=== PATIENT | male | born 1940 | race Caucasian/White ===

== ENCOUNTER → 2017-02-06 | Outpatient (CLI) | payer OTHER, BC ==
[~2017-02-06] MED LIST: BISO5TAB15 PO; FURO20TA PO; LEVO50TA6 PO; LEVO75TA5 PO; LOVA40TA4 PO; PRAV80TA2 PO; PRED1SUS3; WARF5TAB90 PO
[2017-02-06 10:01] LABS: ALT/SGPT 23 U/L (12-78); BLOOD UREA NITROGEN 17 mg/dl (7-18); BUN/CREATININE RATIO 13.3 (10-20); CALCIUM 8.6 mg/dl (8.5-10.1); CARBON DIOXIDE 31 mmol/L (21-32); CHLORIDE 105 mmol/L (98-107); CHOLESTEROL 157 mg/dl (0-200); GLUCOSE 98 mg/dl (70-99); POTASSIUM 4.7 mmol/L (3.5-5.1); SODIUM 140 mmol/L (136-145); TRIGLYCERIDES 135 mg/dl (0-150); VERY LOW DENSITY LIPOPROT CALC 27 mg/dl
[2017-02-06 10:03] LABS: ALKALINE PHOSPHATASE 65 U/L (45-117); AST/SGOT 18 U/L (15-37); CHOLESTEROL/HDL RATIO 3.7; HDL CHOLESTEROL 42 mg/dl; LDL CHOLESTEROL CALCULATED 88 mg/dl
== END | disposition home or self-care (01) ==
LOC: C.LAB 07:03
PROVIDERS: ATTEND Internal Medicine
DX: I10 Essential (primary) hypertension (principal); E78.5 Hyperlipidemia, unspecified

== ENCOUNTER → 2017-09-05 | Outpatient (CLI) | payer OTHER, BC ==
[2017-09-05 09:35] LABS: BASO % 0.4 %; BASO ABS # 0.02 K/uL (0-0.2); COMPLETE YES; HEMATOCRIT 45.3 % (42-52); IG% 0.4 %; LYMPH % 19.8 %; LYMPH ABS # 1.12 K/uL (1.2-3.4); MEAN CELL VOLUME 89.5 fL (80-100); MEAN CORPUSCULAR HEMOGLOBIN 32.2 pg (25-34); MEAN PLATELET VOLUME 10.2 fL (7.4-10.4); MONO % 17.3 %; NEUT % 59.1 %; PLATELET COUNT 131 K/uL (130-400); RED BLOOD COUNT 5.06 M/uL (4.7-6.1); WHITE BLOOD COUNT 5.66 K/uL (4.8-10.8)
[2017-09-05 09:54] LABS: ALT/SGPT 23 U/L (12-78); BLOOD UREA NITROGEN 10 mg/dl (7-18); BUN/CREATININE RATIO 9.4 (10-20); CALCIUM 8.9 mg/dl (8.5-10.1); CARBON DIOXIDE 28 mmol/L (21-32); CHLORIDE 99 mmol/L (98-107); CHOLESTEROL 160 mg/dl (0-200); GLUCOSE 92 mg/dl (70-99); SODIUM 134 mmol/L (136-145); TRIGLYCERIDES 125 mg/dl (0-150); VERY LOW DENSITY LIPOPROT CALC 25 mg/dl
[2017-09-05 10:17] LABS: ALKALINE PHOSPHATASE 69 U/L (45-117); AST/SGOT 21 U/L (15-37); CHOLESTEROL/HDL RATIO 3.6; HDL CHOLESTEROL 45 mg/dl; LDL CHOLESTEROL CALCULATED 90 mg/dl
== END | disposition home or self-care (01) ==
LOC: C.LAB 06:59
PROVIDERS: ATTEND Internal Medicine
DX: E78.5 Hyperlipidemia, unspecified (principal); E89.0 Postprocedural hypothyroidism

== ENCOUNTER → 2017-10-17 | Outpatient (CLI) | payer OTHER, BC | END | disposition home or self-care (01) | LOC: C.LAB 06:57 | PROVIDERS: ATTEND Internal Medicine | DX: E89.0 Postprocedural hypothyroidism (principal) ==

== ENCOUNTER → 2018-02-01 | Outpatient (CLI) | payer OTHER, BC ==
--- NOTE | 2018-02-01 17:57 | DIAGNOSTIC IMAGING REPORT ---
ULTRASOUND LEFT LOWER EXTREMITY VENOUS CLINICAL HISTORY: Left leg pain. COMPARISON STUDY: No priors. TECHNIQUE: Real-time, grayscale, and color Doppler sonography of the deep veins of the left lower extremity was performed from the inguinal crease to the calf. Compression and augmentation were utilized. FINDINGS: There is no sonographic evidence of deep venous thrombosis identified in the left lower extremity. The common femoral, superficial femoral, and popliteal veins are patent and normally compressible. The greater saphenous vein and the profunda femoris vein at the junction with the common femoral vein are clear. The visualized calf veins are patent. IMPRESSION: There is no sonographic evidence of deep venous thrombosis identified in the left lower extremity. Electronically signed by: Dat Dumont M.D. 02/01/2018 5:55 PM Dictated Date/Time: 02/01/2018 5:55 PM
== END | disposition home or self-care (01) ==
LOC: C.ULTR 17:07
PROVIDERS: ATTEND Nurse Practitioner Adult Health
DX: M79.605 Pain in left leg (principal); E89.0 Postprocedural hypothyroidism

== ENCOUNTER → 2018-04-09 | Outpatient (CLI) | payer OTHER, BC | END | disposition home or self-care (01) | LOC: C.LAB 08:29 | PROVIDERS: ATTEND Internal Medicine | DX: E89.0 Postprocedural hypothyroidism (principal); N40.0 Benign prostatic hyperplasia without lower urinary tract symptoms ==

== ENCOUNTER 2022-11-04 11:39 | Inpatient (IN) ==
--- NOTE | 2022-11-04 12:23 | XRay Report ---
XR chest 1V portable CLINICAL HISTORY: AMS TECHNIQUE: Single frontal radiograph of the chest was obtained. Comparison: None available at the time of this dictation. FINDINGS: No lines and tubes are seen. Calcified aortic knob is seen. The lungs are clear. No evidence of pleur al effusion or pneumothorax. IMPRESSION: No acute chest disease. ACT 112: Negative or not required by law. Electronically signed by: Kyrie Flores M.D. 11/04/2022 12:22 PM
[2022-11-04 13:00] LABS: Hematocrit (blood only) 41.4 % (40.1-51.0); Hemoglobin 14.3 g/dl (14.0-18.0); Mean Corpuscular Hemoglobin 31.1 pg (25.0-34.0); Mean Corpuscular Hgb Conc 34.5 g/dL (32.0-36.0); Platelet Count 136 K/uL (130-400); RDW Coefficient of Variation 12.2 % (11.5-14.5); RDW Standard Deviation 40.1 fL (36.4-46.3); White Blood Count 4.92 K/ul (4.8-10.8)
[2022-11-04 13:06] LABS: Partial Thromboplastin Ratio 1.2; Partial Thromboplastin Time 34.1 Seconds (21.0-31.0); Prothrombin Time 20.1 Seconds (9.0-12.0)
[2022-11-04 13:20] LABS: Albumin Globulin Ratio 1.5 (0.9-2); Albumin Level 4.1 gm/dl (3.4-5.0); Calcium 8.4 mg/dl (8.5-10.1); Creatinine Clr Calc Pharmacy 55.1 ml/min; Est GFR (African American) 80.9 ml/min; Est GFR (Non-African American) 69.8 ml/min; Globulin 2.7 gm/dl (2.5-4.0); Potassium 3.8 mmol/L (3.5-5.1); Total Protein 6.8 gm/dl (6.0-8.3)
[2022-11-04 13:24] LABS: Basophils # (auto) 0.02 K/uL (0-0.2); Basophils % (auto) 0.4 %; Eosinophils # (auto) 0.14 K/uL (0-0.50); Eosinophils % (auto) 2.8 %; Immature Granulocytes # (auto) 0.02 K/uL (0.00-0.02); Immature Granulocytes % (auto) 0.4 %; Lymphocytes # (auto) 0.87 K/uL (1.2-3.4); Lymphocytes % (auto) 17.7 %; Monocytes % (auto) 12.2 %; Neutrophils # (auto) 3.27 K/uL (1.4-6.5); Neutrophils % (auto) 66.5 %
[2022-11-04 14:25] LABS: Appearance Urine Clear (Clear); Bacteria Urine Automated Negative (Negative); Bilirubin Urine Negative (Negative); Blood Urine Negative (Negative); Color Urine Yellow; Glucose Urine UA Negative (Negative); Ketones Urine Negative (Negative); Leukocyte Esterase Urine Negative (Negative); Nitrite Urine Negative (Negative); Protein Urine Trace (Negative); RBC Urine Automated 0-4 /hpf (0-4); Specific Gravity Urine 1.023 (1.000-1.030); Urobilinogen Urine Negative (Negative)
--- NOTE | 2022-11-04 14:43 | CT Scan Report ---
CT head/brain wo con CLINICAL HISTORY: confusion Technique: Contiguous axial CT images of the head were acquired from the base of the skull to the juan m mahendra without intravenous contrast administration. Images were viewed in brain, subdural and bone [facility] ws. Automated dose lowering techniques and/or adjustment according to patient size were utilized for this exam. Comparison: Comparison is made to CT head 02/17/2021 Findings: Areas of decreased attenuation are present in the periventricular and subcortical white matter bilate rally consistent with small vessel ischemic disease. Generalized cerebral atrophy with commensurate e nlargement of the ventricles, sulci, and cisterns is also present. There is no acute intracranial hem orrhage or evidence of acute territorial infarction. No shift of the midline structures, mass effect, or extra-axial abnormalities are shown. Atherosclerotic calcifications are present in the intracran ial segments of the internal carotid arteries. Imaged portions of the paranasal sinuses and mastoid air cells are clear. The orbits appear normal. There are no acute fractures of the calvaria or scalp swelling. Impression: No acute intracranial hemorrhage, no evidence of acute territorial infarction or other acute intracra nial disease process. ACT 112: Negative or not required by law. Electronically signed by: Kyrie Flores M.D. 11/04/2022 2:41 PM
[2022-11-04 14:54] LABS: Amphetamines+Metham, Urine Neg (Neg); Barbiturates, Urine Neg (Neg); Benzodiazepine, Urine Neg (Neg); Cocaine, Urine Neg (Neg); MDMA (Ecstacy), Urine Neg (Neg); Methadone, Urine Neg (Neg); Opiate, Urine Neg (Neg); Phencyclidine, Urine Neg (Neg)
--- NOTE | 2022-11-04 15:09 | Emergency Department Note ---
Impression & Plan Acute confusion ED Provider Note HISTORY OF PRESENT ILLNESS: Patient is an 82-year-old male presenting with altered mental status. Son provides history. Reports that in the last 24 hours the patient has not had a significant change in his mental status. Reports that the patient thought there were people in his house last night but are not normally there. The patient lives alone since his ex- recently got placed in a care facility. Son reports that the patient called the railroad design consultant this morning after hallucinating seeing a random person lying on his couch and there are dog walking in the living room. No reported fevers. No reported chest pain, shortness of breath, abdominal pain, nausea or vomiting. No dysuria or hematuria. No reported changes in medications. No recent falls or head injuries. ROS: Constitutional: No fever, chills, or weakness Skin: No rash or diaphoresis HENT: No headaches or congestion Eyes: No vision changes Cardio: No chest pain, palpitations or leg swelling Respiratory: No cough, wheezing or shortness of breath GI: No nausea, vomiting, diarrhea, constipation : No dysuria, polyuria MSK: No joint or back pain Neuro: No loss of sensation, focal deficits, numbness, tingling +confusion Psychiatric: No mood changes PHYSICAL EXAM: Constitutional: Patient appears in no acute distress. HENT: Head: Normocephalic and atraumatic. Eyes: EOMI, PERRL Mouth/Throat: Mucous membranes moist. Neck: Trachea midline. Neck supple. Cardiovascular: RRR, No murmurs, rubs or gallops. Intact distal pulses. Pulmonary/Chest: No respiratory distress. Breath sounds clear and equal bilaterally. No wheezes or rales. Abdominal: BS +. Abdomen soft, no tenderness, rebound or guarding. Back: No midline spinal tenderness, no paraspinal tenderness, no CVA te nderness. Musculoskeletal: No edema, tenderness or deformity noted. Skin: Warm and dry. No rash, erythema, pallor or cyanosis Psychiatric: Appropriate mood and affect for situation. Neurological: Alert and keenly responsive, but with intermittent episodes of confusion to time. CN II-XII grossly intact, moving all extremities equally and fully. MDM: - Vitals signs stable. - EKG negative for acute ischemic changes. - Laboratory workup showed normal WBC; stable electrolytes; normal troponin; normal procal; elevated TSH (7.122) - UA negative for infection. - CT head wo contrast negative for acute intracranial pathology. - CXR negative for acute cardiopulmonary pathology. - Discussed results with patient and family at bedside. Family expresses concern about patient going home, as he lives alone. - Hospitalist consulted for admission. - Patient admitted to hospitalist service for further evaluation and management. ASSESSMENT AND PLAN: Diagnosis: confusion Plan: admit Past Med/Surg History Medical History (Updated 11/04/22 @ 16:07 by Allyssa Phan MD) Atrial fibrillation on warfarin---follows with Dr. Jackson BPH (benign prostatic hyperplasia) History of radioactive iodine thyroid ablation Hyperlipidemia Hypertension Hypothyroidism On anticoagulant therapy warfarin daily Skin cancer multiple--all removed in office Surgical History H/O surgical amputation of finger right index finger History of appendectomy History of bilateral cataract extraction History of colonoscopy History of colonoscopy with polypectomy History of nasal surgery intranasal ligation for recurrent epistaxis April 2015 History of prostate biopsy benign History of tooth extraction Status post debridement of bone spur 1990s Family History Father Cardiac disorder Colorectal cancer Hypertension Mother Colorectal cancer Grandfather (Paternal) No problems noted. Grandfather (Maternal) Myocardial infarction Other No family history of adverse response to anesthesia Denies family history of Ovarian cancer Prostate cancer Breast cancer Social History Smoking Status: Never smoker Second Hand Exposure: No; Hx Alcohol Use: Yes Alcohol type: beer Alcohol Intake Frequency Comment: 2-3 beers per day most every day Hx Substance Use: No Preferred Language: Yemeni Communication Ability: Effective Visual Impairment: No Limitations Hearing Ability: Normal Development Administrator Required: No Beliefs That Will Affect Care: None marital status: Current Living Situation: Spouse current occupational status: 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 Feels Safe at Home: Yes Childhood Exposure to Second-Hand Smoke: No caffeine: Yes Dental Care, Regularly: Yes Physical Activity Frequency: 1-2 Times per Week Seatbelt Use: always Sunscreen Use: No Assistive Devices: Denture - Upper, Denture - Lower and Glasses Allergies Allergies Allergy/AdvReac Type Severity Reaction Status Date / Time alfuzosin AdvReac Mild dizziness Verified 11/04/22 14:23 Home Meds Home Medications Medication Instructions Recorded Confirmed cholecalciferol (vitamin D3) 50 2,000 units PO QAM 07/16/20 11/04/22 mcg (2,000 unit) tablet lovastatin 40 mg tablet 40 mg PO HS 11/04/22 11/04/22 warfarin 2.5 mg tablet 2.5 mg PO MOTUWETHFR 11/04/22 11/04/22 Previous Rx's Medication Instructions Recorded bisoprolol 5 1 tab PO QAM #90 tabs 12/06/21 mg-hydrochlorothiazide 6.25 mg tablet levothyroxine 100 mcg tablet 100 mcg PO DAILY #90 tabs 09/01/22 mecobalamin (vitamin B12) 1,000 1,000 mcg PO DAILY #90 tabs 09/19/22 mcg chewable tablet Results & Data (ED) Vital Signs Vital Signs - 24 hr 11/04/22 11:41 11/04/22 12:51 11/04/22 12:51 Temperature 35.8 C L Temperature Source Temporal Artery Scan Pulse Rate 64 Pulse Rate [Apical] 65 Pulse Rate from SpO2 Sensor Respiratory Rate 18 16 Respiratory Effort / Characteristics Non-Labored Respiratory Depth Normal Respiratory Pattern Regular Blood Pressure 147/88 H Blood Pressure [Right Arm] Blood Pressure Mean 107 Blood Pressure Mean [Right Arm] Pulse Oximetry 99 97 Oxygen Delivery Method Room Air Room Air Room Air Sepsis Recent Fever Within 48 Hours No Sepsis New/Unexplained Change in Mental Status N/A Sepsis Action Taken by Nursing No Action Required 11/04/22 13:00 11/04/22 13:05 11/04/22 14:03 Temperature Temperature Source Pulse Rate Pulse Rate [Apical] 63 68 Pulse Rate from SpO2 Sensor Respiratory Rate 14 Respiratory Effort / Characteristics Respiratory Depth Respiratory Pattern Blood Pressure Blood Pressure [Right Arm] 172/123 H 191/123 H Blood Pressure Mean Blood Pressure Mean [Right Arm] 139 145 Pulse Oximetry 98 98 Oxygen Delivery Method Room Air Room Air Room Air Sepsis Recent Fever Within 48 Hours Sepsis New/Unexplained Change in Mental Status Sepsis Action Taken by Nursing 11/04/22 14:30 11/04/22 14:43 11/04/22 14:43 Temperature Temperature Source Pulse Rate 68 60 Pulse Rate [Apical] Pulse Rate from SpO2 Sensor 76 63 Respiratory Rate 23 14 Respiratory Effort / Characteristics Respiratory Depth Respiratory Pattern Blood Pressure 184/99 H Blood Pressure [Right Arm] Blood Pressure Mean 127 Blood Pressure Mean [Right Arm] Pulse Oximetry 99 99 Oxygen Delivery Method Room Air Room Air Sepsis Recent Fever Within 48 Hours Sepsis New/Unexplained Change in Mental Status Sepsis Action Taken by Nursing Laboratory Data Result diagrams: 11/04/22 12:11/04/22 12: Lab Results 11/04/22 11/04/22 11/04/22 Range/Units : 12: 12: WBC 4.92 (4.8-10.8) K/ul RBC 4.60 L (4.63-6.08) M/uL Hgb 14.3 (14.0-18.0) g/dl Hct 41.4 (40.1-51.0) % MCV 90.0 (80.0-100.0) fL MCH 31.1 (25.0-34.0) pg MCHC 34.5 (32.0-36.0) g/dL RDW Std Deviation 40.1 (36.4-46.3) fL RDW Coeff of Dion[place] 12.2 (11.5-14.5) % Plt Count 136 (130-400) K/uL MPV 11.0 (9.4-12.4) fL Immature Gran % (Auto) 0.4 % Neut % (Auto) 66.5 % Lymph % (Auto) 17.7 % [place] % (Auto) 12.2 % Eos % (Auto) 2.8 % Baso % (Auto) 0.4 % Neut # (Auto) 3.27 (1.4-6.5) K/uL Lymph # (Auto) 0.87 L (1.2-3.4) K/uL [place] # (Auto) 0.60 (0.24-0.82) K/uL Eos # (Auto) 0.14 (0-0.50) K/uL Baso # (Auto) 0.02 (0-0.2) K/uL Immature Gran # (Auto) 0.02 (0.00-0.02) K/uL PT 20.1 H (9.0-12.0) Seconds INR 2.0 H (0.9-1.1) APTT 34.1 H (21.0-31.0) Seconds PTT Ratio 1.2 Sodium 140 (136-145) mmol/L Potassium 3.8 (3.5-5.1) mmol/L Chloride 106 (98-107) mmol/L Carbon Dioxide 28 (21-32) mmol/L Anion Gap 6 (3-11) BUN 23 (6-23) mg/dl Creatinine 1.00 (0.6-1.4) mg/dl Est Cr Clr Drug Dosing 55.1 ml/min Est GFR ( Amer) 80.9 ml/min Est GFR (Non-Af Amer) 69.8 ml/min BUN/Creatinine Ratio 23.0 H (10-20) Glucose 79 (70-99(Fasting)) mg/dl Calcium 8.4 L (8.5-10.1) mg/dl Magnesium 2.0 (1.7-2.4) mg/dl Total Bilirubin 1.0 (0.2-1.0) mg/dl AST 13 (13-39) U/L ALT 8 (7-52) U/L Alkaline Phosphatase 54 (34-104) U/L Troponin I High Sens (0-20) pg/ml Total Protein 6.8 (6.0-8.3) gm/dl Albumin 4.1 (3.4-5.0) gm/dl Globulin 2.7 (2.5-4.0) gm/dl Albumin/Globulin Ratio 1.5 (0.9-2) Procalcitonin (0-0.5) ng/ml TSH (0.300-4.500) uIu/ml Urine Color Urine Appearance (Clear) Urine pH (4.5-7.5) Ur Specific [place] (1.000-1.030) Urine Protein (Negative) Urine Glucose (UA) (Negative) Urine Ketones (Negative) Urine Blood (Negative) Urine Nitrite (Negative) Urine Bilirubin (Negative) Urine Urobilinogen (Negative) Ur Leukocyte Esterase (Negative) Urine WBC (Auto) (0-5) /hpf Urine RBC (Auto) (0-4) /hpf U Hyaline Cast (Auto) (0-5) /lpf U Epithel Cells (Auto) (0-5) /lpf Urine Bacteria (Auto) (Negative) Urine Opiates Screen (Neg) Ur Methadone, Qual (Neg) Urine Barbiturates (Neg) Ur Phencyclidine (PCP) (Neg) U Amphetamin/Meth Scrn (Neg) MDMA (Ecstasy) Screen (Neg) U Benzodiazepines Scrn (Neg) Ur Cocaine Metabolite (Neg) U Marijuana (THC) Screen (Neg) Ethyl Alcohol mg/dL (<10.0) mg/dl 11/04/22 11/04/22 11/04/22 Range/Units 12:23 12:23 12:23 WBC (4.8-10.8) K/ul RBC (4.63-6.08) M/uL Hgb (14.0-18.0) g/dl Hct (40.1-51.0) % MCV (80.0-100.0) fL MCH (25.0-34.0) pg MCHC (32.0-36.0) g/dL RDW Std Deviation (36.4-46.3) fL RDW Coeff of Dionne (11.5-14.5) % Plt Count (130-400) K/uL MPV (9.4-12.4) fL Immature Gran % (Auto) % Neut % (Auto) % Lymph % (Auto) % [place] % (Auto) % Eos % (Auto) % Baso % (Auto) % Neut # (Auto) (1.4-6.5) K/uL Lymph # (Auto) (1.2-3.4) K/uL [place] # (Auto) (0.24-0.82) K/uL Eos # (Auto) (0-0.50) K/uL Baso # (Auto) (0-0.2) K/uL Immature Gran # (Auto) (0.00-0.02) K/uL PT (9.0-12.0) Seconds INR (0.9-1.1) APTT (21.0-31.0) Seconds PTT Ratio Sodium (136-145) mmol/L Potassium (3.5-5.1) mmol/L Chloride (98-107) mmol/L Carbon Dioxide (21-32) mmol/L Anion Gap (3-11) BUN (6-23) mg/dl Creatinine (0.6-1.4) mg/dl Est Cr Clr Drug Dosing ml/min Est GFR ( Amer) ml/min Est GFR (Non-Af Amer) ml/min BUN/Creatinine Ratio (10-20) Glucose (70-99(Fasting)) mg/dl Calcium (8.5-10.1) mg/dl Magnesium (1.7-2.4) mg/dl Total Bilirubin (0.2-1.0) mg/dl AST (13-39) U/L ALT (7-52) U/L Alkaline Phosphatase (34-104) U/L Troponin I High Sens 10.6 (0-20) pg/ml Total Protein (6.0-8.3) gm/dl Albumin (3.4-5.0) gm/dl Globulin (2.5-4.0) gm/dl Albumin/Globulin Ratio (0.9-2) Procalcitonin (0-0.5) ng/ml TSH 7.122 H (0.300-4.500) uIu/ml Urine Color Urine Appearance (Clear) Urine pH (4.5-7.5) Ur Specific [place] (1.000-1.030) Urine Protein (Negative) Urine Glucose (UA) (Negative) Urine Ketones (Negative) Urine Blood (Negative) Urine Nitrite (Negative) Urine Bilirubin (Negative) Urine Urobilinogen (Negative) Ur Leukocyte Esterase (Negative) Urine WBC (Auto) (0-5) /hpf Urine RBC (Auto) (0-4) /hpf U Hyaline Cast (Auto) (0-5) /lpf U Epithel Cells (Auto) (0-5) /lpf Urine Bacteria (Auto) (Negative) Urine Opiates Screen (Neg) Ur Methadone, Qual (Neg) Urine Barbiturates (Neg) Ur Phencyclidine (PCP) (Neg) U Amphetamin/Meth Scrn (Neg) MDMA (Ecstasy) Screen (Neg) U Benzodiazepines Scrn (Neg) Ur Cocaine Metabolite (Neg) U Marijuana (THC) Screen (Neg) Ethyl Alcohol mg/dL < 10.0 (<10.0) mg/dl 11/04/22 11/04/22 11/04/22 Range/Units 12:23 13:55 13:55 WBC (4.8-10.8) K/ul RBC (4.63-6.08) M/uL Hgb (14.0-18.0) g/dl Hct (40.1-51.0) % MCV (80.0-100.0) fL MCH (25.0-34.0) pg MCHC (32.0-36.0) g/dL RDW Std Deviation (36.4-46.3) fL RDW Coeff of Dionne (11.5-14.5) % Plt Count (130-400) K/uL MPV (9.4-12.4) fL Immature Gran % (Auto) % Neut % (Auto) % Lymph % (Auto) % [place] % (Auto) % Eos % (Auto) % Baso % (Auto) % Neut # (Auto) (1.4-6.5) K/uL Lymph # (Auto) (1.2-3.4) K/uL [place] # (Auto) (0.24-0.82) K/uL Eos # (Auto) (0-0.50) K/uL Baso # (Auto) (0-0.2) K/uL Immature Gran # (Auto) (0.00-0.02) K/uL PT (9.0-12.0) Seconds INR (0.9-1.1) APTT (21.0-31.0) Seconds PTT Ratio Sodium (136-145) mmol/L Potassium (3.5-5.1) mmol/L Chloride (98-107) mmol/L Carbon Dioxide (21-32) mmol/L Anion Gap (3-11) BUN (6-23) mg/dl Creatinine (0.6-1.4) mg/dl Est Cr Clr Drug Dosing ml/min Est GFR ( Amer) ml/min Est GFR (Non-Af Amer) ml/min BUN/Creatinine Ratio (10-20) Glucose (70-99(Fasting)) mg/dl Calcium (8.5-10.1) mg/dl Magnesium (1.7-2.4) mg/dl Total Bilirubin (0.2-1.0) mg/dl AST (13-39) U/L ALT (7-52) U/L Alkaline Phosphatase (34-104) U/L Troponin I High Sens (0-20) pg/ml Total Protein (6.0-8.3) gm/dl Albumin (3.4-5.0) gm/dl Globulin (2.5-4.0) gm/dl Albumin/Globulin Ratio (0.9-2) Procalcitonin < 0.05 (0-0.5) ng/ml TSH (0.300-4.500) uIu/ml Urine Color Yellow Urine Appearance Clear (Clear) Urine pH 7.0 (4.5-7.5) Ur Specific [place] 1.023 (1.000-1.030) Urine Protein Trace H (Negative) Urine Glucose (UA) Negative (Negative) Urine Ketones Negative (Negative) Urine Blood Negative (Negative) Urine Nitrite Negative (Negative) Urine Bilirubin Negative (Negative) Urine Urobilinogen Negative (Negative) Ur Leukocyte Esterase Negative (Negative) Urine WBC (Auto) 1-5 (0-5) /hpf Urine RBC (Auto) 0-4 (0-4) /hpf U Hyaline Cast (Auto) 1-5 (0-5) /lpf U Epithel Cells (Auto) 5-10 H (0-5) /lpf Urine Bacteria (Auto) Negative (Negative) Urine Opiates Screen Neg (Neg) Ur Methadone, Qual Neg (Neg) Urine Barbiturates Neg (Neg) Ur Phencyclidine (PCP) Neg (Neg) U Amphetamin/Meth Scrn Neg (Neg) MDMA (Ecstasy) Screen Neg (Neg) U Benzodiazepines Scrn Neg (Neg) Ur Cocaine Metabolite Neg (Neg) U Marijuana (THC) Screen Neg (Neg) Ethyl Alcohol mg/dL (<10.0) mg/dl Imaging Data Radiologist's Impression: Chest X-Ray 11/04/22 11:47 XR chest 1V portable CLINICAL HISTORY: AMS TECHNIQUE: Single frontal radiograph of the chest was obtained. Comparison: None available at the time of this dictation. FINDINGS: No lines and tubes are seen. Calcified aortic knob is seen. The lungs are clear. No evidence of pleural effusion or pneumothorax. IMPRESSION: No acute chest disease. ACT 112: Negative or not required by law. Electronically signed by: Kyrie Flores M.D. 11/04/2022 12:[address] 11/04/22 13:08 CT head/brain wo con CLINICAL HISTORY: confusion Technique: Contiguous axial CT images of the head were acquired from the base of the skull to the vertex without intravenous contrast administration. Images were viewed in brain, subdural and bone windows. Automated dose lowering techniques and/or adjustment according to patient size were utilized for this exam. Comparison: Comparison is made to CT head 02/17/2021 Findings: Areas of decreased attenuation are present in the periventricular and subcortical white matter bilaterally consistent with small vessel ischemic disease. Generalized cerebral atrophy with commensurate enlargement of the ventricles, sulci, and cisterns is also present. There is no acute intracranial hemorrhage or evidence of acute territorial infarction. No shift of the midline structures, mass effect, or extra-axial abnormalities are shown. Atherosclerotic calcifications are present in the intracranial segments of the internal carotid arteries. Imaged portions of the paranasal sinuses and mastoid air cells are clear. The orbits appear normal. There are no acute fractures of the calvaria or scalp swelling. Impression: No acute intracranial hemorrhage, no evidence of acute territorial infarction or other acute intracranial disease process. ACT 112: Negative or not required by law. Electronically signed by: Kyrie Flores M.D. 11/04/2022 2:41 PM Discharge Plan Visit Data Chief Complaint: Altered Mental Status Stated Complaint: HALLUCINATING, MIND IS OFF ED Provider: Allyssa Phan Discharge Problem: Acute confusion Patient Disposition: Admitted As Inpatient Forms Stand Alone Forms: [facility] Pres[facility] Prescriptions: No Action bisoprolol-hydrochlorothiazide 5-6.25 mg tablet 1 tab PO QAM Qty: 90 3RF levothyroxine 100 mcg tablet 100 mcg PO DAILY Qty: 90 3RF mecobalamin (vitamin B12) 1,000 mcg tablet,chewable 1,000 mcg PO DAILY Qty: 90 1RF cholecalciferol (vitamin D3) 2,000 unit tablet 2,000 units PO QAM lovastatin 40 mg tablet 40 mg PO HS Rx Instructions: TAKE 1 TABLET BY MOUTH EVERY EVENING warfarin 2.5 mg tablet 2.5 mg PO MOTUWETHFR Protocol: Dose Management Condition: Monday Dose/Route: 2.5 mg Instruction: 1 x 2.5 mg tablet Condition: Monday Dose/Route: 5 mg Instruction: 2 x 2.5 mg tablets Condition: Monday Dose/Route: 2.5 mg Instruction: 1 x 2.5 mg tablet Condition: Monday Dose/Route: 2.5 mg Instruction: 1 x 2.5 mg tablet Condition: Dose/Route: 2.5 mg Instruction: 1 x 2.5 mg tablet Condition: Monday Dose/Route: 5 mg Instruction: 2 x 2.5 mg tablets Condition: Monday Dose/Route: 2.5 mg Instruction: 1 x 2.5 mg tablet Protocol Text: Adjustment Start Date: Monday07/20/22 INR Value: 2.5 INR Date: 07/20/22 Recheck Date: 08/10/22 Rx Instructions: Take 1 tablet daily or an additional one as needed to achieve INR of 2-3 Referrals Referrals: Michael Pederson MD [Primary Care Provider] -
--- NOTE | 2022-11-04 16:54 | Electrocardiogram Report ---
Test Reason : Blood Pressure : / mmHG Vent. Rate : 062 BPM Atrial Rate : 178 BPM P-R Int : 000 ms QRS Dur : 080 ms QT Int : 408 ms P-R-T Axes : 000 054 044 degrees QTc Int : 414 ms Atrial fibrillation Abnormal ECG When compared with ECG of 02-MAR-2021 12:46, Nonspecific T wave abnormality has replaced inverted T waves in Inferior leads Confirmed by Baljeet Baumann ([id number]) on 11/04/2022 4:54:31 PM Referred By: REFERRED SELF Confirmed By:Baljeet Baumann
[2022-11-04] MEDS ORDERED: FOLIC ACID 1 MG in SYRINGE 9.8 ML IV STA (18:36)
[2022-11-04] MEDS ORDERED: LACTATED RINGER'S 1,000 ML IV SCH (18:36)
[2022-11-04] MEDS ORDERED: ONDANSETRON INJ 2 MG/ML 2 ML VIAL IV PRN (18:36)
--- NOTE | 2022-11-04 19:18 | History & Physical Report ---
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 We will give a liter of IV fluids, supportive care, follow closely. 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 has a potential for impact. Discussed with patient and family at the very least replacing B vitamins aggressively and alcohol cessation should stop the worsening, at best, we could potentially see some degree of improvement. They were clear and realistic that his current mentation may be "as good as it gets" (2) Alcohol abuse: Plan: Certainly appears to be a "root cause problem"encouraged cessation. For now a WSS and follow for any withdrawal. He is currently about 24 hours after his last drink. Fortunately at this point time he does not show any serious withdrawalsee below he had a little bit of an uptick in what appears to be his essential tremor as we were discussing what alcohol withdrawal would look like, but otherwise right now is not tremulous, tachycardic, diaphoretic, or anxious. (3) Vitamin B 12 deficiency: Plan: Profoundly low, and given that it does seem to have a potential role in his confusion/overall deteriorationreplacing IM to ensure reliable delivery. 1000 mcg IM daily for a week, then weekly for a month, then monthly indefinitely. Given his chronic alcohol abuse and confusionwe will utilize thiamine at [place]ke type [id number] mg 3 times daily for probably at least 2 days, then 250 daily for quite a while thereafter. As it relates to disposition, would probably want to at least have 2 days of the thiamine at the extremely high dosing before thinking about getting out of the hospital Folate 1 mg IV daily (4) Hypothyroidism: Plan: Very mildly elevated TSH, I do wonder how often he is taking his home Synthroid. Given that his INR is therapeutic, he is probably taking his meds at least some, given that his TSH was low in July and mildly high nowundoubtedly is taking his med somewhat erratically. Home dose, follow-up TSH in about 4 weeks. To be clear, a TSH of 7.12 is almost certainly not contributing to his mentation (5) Dyslipidemia: Plan: Continue home meds for now, might be able to DC questioning utility (6) HTN (hypertension): Plan: Follow blood pressure, continue home meds (7) Atrial fibrillation: Plan: Continue beta-blockerrate controlled. Continue Coumadin, anticoagulated (8) Vitamin D deficiency: Plan: Continue replacement, check a level along with thiamine, folate, etc. (9) Essential tremor: Plan: Interestingly had very little tremor at rest until we started to talk about following for alcohol withdrawal, at which point he started to have a fairly characteristic essential tremor, which caused him to laugh at the situation (10) DVT prophylaxis: Plan: Anticoagulated with Coumadin (11) Discharge planning issues: Plan: Admit for high-dose thiamine, PT/OT, supportive care, and IV fluids. Family was already looking at increasing care at homethey actually have caregivers set to start 3 hours a day, and at the same time were going through the process with a geriatric civil litigation attorney as far as what type of placement/long-term care would be id eal. We discussed the possibility that, while hopefully he can go home with extra support, he might need a facilitybut also discussed that currently beds are so tight that it might be placement with what is available rather than what was a good fit for himto that end, should that situation arise, they would consider doing what they can do supportive at home while working on placement that would be best for him. At this point disposition contingent on his progress as well as PT/OT assessmeents and ongoing family input. Admission and Anticipated Discharge Date Admission Date: November 04, 2022 History of Present Illness Primary Care Provider: Confusion and hallucinationsMichael Pederson MD Very pleasant 82-year-old male accompanied by his family. They note that over the last several months he has had some progressive worsening confusionhis ex- (with whom he used to still live) moved into [facility] about a month ago, and he has had several phone calls to his son asking where his ex- is. He has also had a few falls over the last few months for no clear reason, and some degree of confusion/may be getting lost a little bit, etc. He has been following actively with his PCP. He relates that he believes he takes his medications reliably. Family does note that he is probably lost about 10 pounds over the last 3 months, and they believe he is still eating and drinking reasonably but definitely not well enough consistently. He still drinks dailyhard to discern exactly how much, but sounds like probably somewhere between 2 to 4 12 ounce, 5% beers. He ended up in the ER today because over the last 24 hours the increase in hallucinations was quite significanthe is seeing things fleetinglysometimes that they sort of look like animalshe notes those are there for just a few seconds and seems to be able to convince himself they are not real, and yet at the same time he felt that he saw someone on his couch doing drugs, called the police, etc. He denies any acute physical complaints, no focal symptoms. He does note that he has had very few times that he is quit drinking in the past, he was not able to quantify when it was as far as how many years ago, but at some point he tried to quit drinking for lunch, made it for days, and had some significant shakes during that time period. Allergies Allergy/AdvReac Type Severity Reaction Status Date / Time alfuzosin AdvReac Mild dizziness Verified 11/04/22 14:23 Home Medications Medication Instructions Recorded Confirmed Type cholecalciferol (vitamin D3) 50 2,000 units PO QAM 07/16/20 11/04/22 History mcg (2,000 unit) tablet bisoprolol 5 1 tab PO QAM #90 tabs 12/06/21 11/04/22 Rx mg-hydrochlorothiazide 6.25 mg tablet levothyroxine 100 mcg tablet 100 mcg PO DAILY #90 tabs 09/01/22 11/04/22 Rx mecobalamin (vitamin B12) 1,000 1,000 mcg PO DAILY #90 tabs 09/19/22 11/04/22 Rx mcg chewable tablet lovastatin 40 mg tablet 40 mg PO HS 11/04/22 11/04/22 History warfarin 2.5 mg tablet 2.5 mg PO MOTUWETHFR 11/04/22 11/04/22 History Past Med/Surg History Medical History (Updated 11/04/22 @ 19:11 by Khoa Mcnamara DO) Atrial fibrillation on warfarin---follows with Dr. Jackson BPH (benign prostatic hyperplasia) History of radioactive iodine thyroid ablation Hyperlipidemia Hypertension Hypothyroidism On anticoagulant therapy warfarin daily Skin cancer multiple--all removed in office Surgical History H/O surgical amputation of finger right index finger History of appendectomy History of bilateral cataract extraction History of colonoscopy History of colonoscopy with polypectomy History of nasal surgery intranasal ligation for recurrent epistaxis April 2015 History of prostate biopsy benign History of tooth extraction Status post debridement of bone spur Family History Father , age 85 of colon cancer Cardiac disorder Colorectal cancer Hypertension Mother , age 69 of colon cancer Colorectal cancer Grandfather (Paternal) No problems noted. Grandfather (Maternal) Myocardial infarction Other No family history of adverse response to anesthesia Denies family history of Ovarian cancer Prostate cancer Breast cancer Social History Smoking Status: Never smoker Second Hand Exposure: No; Hx Alcohol Use: Yes Alcohol type: beer Alcohol Intake Frequency Comment: 2-3 beers per day most every day Hx Substance Use: No Preferred Language: Icelandic Communication Ability: Effective Visual Impairment: No Limitations Hearing Ability: Normal Marketing Analytics Specialist Required: No Beliefs That Will Affect Care: None marital status: Current Living Situation: Spouse current occupational status: 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 No acute distress. HEENT normocephalic atraumatic mucous membranes may be slightly dry. Cardio is irregularly irregular, regular rate bordering on bradycardia, no rubs murmurs or gallops. Lungs are overall clear to auscultation bilaterally, he had faint crackles base right that seem to clear with repeated deep breaths, no rhonchi no wheezes no accessory muscle use good effort. Abdomen is soft nondistended nontender no masses organomegaly, vague nontender right upper quadrant fullness. Extremities show no cyanosis clubbing or edema, somewhat poor skin turgor, no palpable cords, he does have a little bit of right calf tenderness but is reproducible in the belly of the medial portion of the gastroc muscle. Neuro shows cranial nerves II through XII be grossly intact gross motor and sensory intact without focal deficits. Mental status seems to show fair to poor recent recall although it is tough to quantify because some of it is that he gets fixated on what he was hallucinating about. Good remote recall, normal mood and affect, hard to gauge judgment and insight. Musculoskeletal yields no gross abnormalities Results & Data Results & Data ([facility]) Vital Signs (Past 12 Hours) Vital Signs Temp Pulse Pulse Pulse Resp BP BP 11/04/22 18:25 97.9 F 60 16 174/103 H 11/04/22 18:20 97.9 F 60 16 174/103 H 11/04/22 18:04 62 22 196/107 H 11/04/22 17:30 62 22 196/107 H 11/04/22 17:01 62 19 188/124 H 11/04/22 16:40 60 17 212/122 H 11/04/22 16:38 75 10 L 212/122 H 11/04/22 15:31 68 16 181/133 H 11/04/22 14:43 60 14 11/04/22 14:43 184/99 H 11/04/22 14:30 68 23 11/04/22 14:03 68 14 11/04/22 13:05 11/04/22 13:00 63 11/04/22 12:51 65 16 11/04/22 12:51 11/04/22 11:41 96.4 F L 64 18 147/88 H BP Pulse Ox O2 Del Method 11/04/22 18:25 98 Room Air 11/04/22 18:20 98 Room Air 11/04/22 18:04 97 Room Air 11/04/22 17:30 97 11/04/22 17:01 96 11/04/22 16:40 98 11/04/22 16:38 96 11/04/22 15:31 98 11/04/22 14:43 99 Room Air 11/04/22 14:43 11/04/22 14:30 99 Room Air 11/04/22 14:03 191/123 H 98 Room Air 11/04/22 13:05 Room Air 11/04/22 13:00 172/123 H 98 Room Air 11/04/22 12:51 97 Room Air 11/04/22 12:51 Room Air 11/04/22 11:41 99 Room Air Code Status & VTE Plan VTE Prophylaxis Plan VTE Prophylaxis will be ordered: Yes PG Care Time/CCT Total # of Minutes Spent Total Time Spent with Patient: Total time spent is greater than 50% in coordination of care (as documented) at patient's floor/unit and/or counseling patient: Coding Level of Care Code 70037 Initial Inpt Care Lvl 3 Diagnoses Altered mental status R41.82 Alcohol abuse F10.10 Vitamin B 12 deficiency E53.8 Hypothyroidism E03.9 Hypothyroidism type: acquired Dyslipidemia E78.5 HTN (hypertension) I10 Hypertension type: essential hypertension Atrial fibrillation I48.21 Atrial fibrillation type: permanent Vitamin D deficiency E55.9 Essential tremor G25.0 DVT prophylaxis Z29.9 Discharge planning issues Z02.9 (1) Hypothyroidism Hypothyroidism type: acquired Qualified Code(s): E03.9 - Hypothyroidism, unspecified (2) HTN (hypertension) Hypertension type: essential hypertension Qualified Code(s): I10 - Essential (primary) hypertension (3) Atrial fibrillation Atrial fibrillation type: permanent Qualified Code(s): I48.21 - Permanent atrial fibrillation
[2022-11-04] MEDS ORDERED: METOPROLOL TARTRATE 25 MG TAB PO ONE (19:57)
[2022-11-04] MEDS: WARFARIN SOD 2.5 MG TAB PO SCH (20:27)
[2022-11-04] MEDS: THIAMINE HCL 500 MG in SODIUM CHLORIDE 0.9% 50 ML IV SCH (20:28)
[2022-11-04] MEDS: LOVASTATIN 20 MG TAB PO SCH (20:28)
[2022-11-04] MEDS: CYANOCOBALAMIN 1000 MCG/ML VIAL IM SCH (20:31)
[2022-11-04 21:28] LABS: Vitamin D, 25 Hydrox 32.9 ng/ml (30-100)
[2022-11-05] MEDS: THIAMINE HCL 500 MG in SODIUM CHLORIDE 0.9% 50 ML IV SCH ×3 (04:46→17:48)
[2022-11-05] MEDS: LEVOTHYROXINE SODIUM 100 MCG TABLET PO SCH (04:54)
[2022-11-05 07:22] LABS: INR 1.7 (0.9-1.1)
[2022-11-05] MEDS: CYANOCOBALAMIN 1000 MCG/ML VIAL IM SCH (08:48)
[2022-11-05] MEDS: FOLIC ACID 1 MG in SYRINGE 9.8 ML IV SCH (08:48)
[2022-11-05] MEDS: CHOLECALCIFEROL 1,000 UNITS 25 MCG TAB PO SCH (08:48)
[2022-11-05] MEDS: METOPROLOL TARTRATE 25 MG TAB PO SCH ×2 (08:49→22:22)
[2022-11-05] MEDS: WARFARIN SOD 2.5 MG TAB PO SCH (08:49)
[2022-11-05] MEDS ORDERED: BISOPROLOL HYDROCHLOROTHIAZIDE PO SCH (09:00)
[2022-11-05] MEDS ORDERED: hydroCHLOROthiazide 25 MG TAB PO SCH (09:00)
--- NOTE | 2022-11-05 16:51 | Hospitalist Progress Note ---
Date of Service November 05, 2022 Assessment & Plan (1) Altered mental status: Plan: This has been an ongoing problem Waxing and waning dementia. Very low B12 found on [id number] shots started several months ago. Patient misses p.o. B12. P.o. was not sufficient we will give a liter of IV fluids, supportive care, follow closely. Discussed with family the hard part will be that given his age and baseline impaired mentation, as well as the small but real possibility of alcohol withdrawal, it might be hard to gauge his acute mental status for quite a while given the high propensity for delirium to occur in the hospital environment No evidence of alcohol withdrawal (2) Alcohol abuse: Plan: Certainly appears to be a "root cause problem"encouraged cessation. For now a WSS and follow for any withdrawal. He is currently about 24 hours after his last drink. Fortunately at this point time he does not show any serious withdrawalsee below he had a little bit of an uptick in what appears to be his essential tremor as we were discussing what alcohol withdrawal would look like, but otherwise right now is not tremulous, tachycardic, diaphoretic, or anxious. (3) Vitamin B 12 deficiency: Plan: Profoundly low, and given that it does seem to have a potential role in his confusion/overall deteriorationreplacing IM to ensure reliable delivery. 1000 mcg IM daily for a week, then weekly for a month, then monthly indefinitely. Given his chronic alcohol abuse and confusionwe will utilize thiamine at [place] type [id number] mg 3 times daily for probably at least 2 days, then 250 daily for quite a while thereafter. As it relates to disposition, would probably want to at least have 2 days of the thiamine at the extremely high dosing before thinking about getting out of the hospital Folate 1 mg IV daily (4) Hypothyroidism: Plan: Very mildly elevated TSH, I do wonder how often he is taking his home Synthroid. Given that his INR is therapeutic, he is probably taking his meds at least some, given that his TSH was low in July and mildly high nowundoubtedly is taking his med somewhat erratically. Home dose, follow-up TSH in about 4 weeks. (5) Dyslipidemia: Plan: Continue home meds for now, might be able to DC questioning utility (6) HTN (hypertension): Plan: Poorly controlled blood pressure, home bisoprololHCTZ changed to metoprolol 25 twice daily and HCTZ. I am stopping HCTZ and starting Norvasc 5 mg daily (7) Atrial fibrillation: Plan: Continue beta-blockerrate controlled. Continue Coumadin, anticoagulated INR 1.7 (8) Vitamin D deficiency: Plan: Continue replacement, check a level along with thiamine, folate, etc. (9) Essential tremor: Plan: Interestingly had very little tremor at rest until we started to talk about following for alcohol withdrawal, at which point he started to have a fairly characteristic essential tremor, which caused him to laugh at the situation (10) DVT prophylaxis: Plan: Anticoagulated with Coumadin (11) Discharge planning issues: Plan: PT/OT, supportive care Family was already looking at increasing care at [facility] actually have caregivers set to start 3 hours a day, and at the same time were going through the process with a geriatric estate attorney as far as what type of placement/long-term care would be ideal. We discussed the possibility that, while hopefully he can go home with extra support, he might need a facilitybut also discussed that currently beds are so tight that it might be placement with what is available rather than what was a good fit for himto that end, should that situation arise, they would consider doing what they can do supportive at home while working on placement that would be best for him. At this point disposition contingent on his progress as well as PT/OT assessmeents and ongoing family input. If caregivers possible at home can go home temporarily but ideally needs to be placed in at a minimum an assisted living facility. Plan PT evaluation. Consider placement for worsening cognition and poor safety alone at home. Admission and Anticipated Discharge Date Admission Date: November 04, 2022 Subjective Seen at 1145. The patient says he is here because he saw some dark spots in front of his eyes. His daughter reminded him that he recall the gift consultant. The patient then stated that he had seen a person who looked comatose on his sofa and he had called the police. There have been recent hallucinations on and off per daughter. He called his landlord talking about a chicken in the toilet once. The patient walks to [facility]. Has had 3 recent falls. Denies dizziness or chest pain. Cheerful. Denies depressed mood. Says he forgets to take his pills. Drinks a sixpack of beer daily for the last several years. 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 Physical Exam Physical Exam: Cheerful elderly male, was being helped back to his bed and helped with taking off his sweater. He was standing by the side of the bed. Able to name his daughter but not able to tell me the reason he is in hospital. Insight seems impaired. Head and neck moist tongue No thyromegaly Chest is clear to auscultation Abdomen slightly distended not nontender Extremities no edema Gait normal in the few steps he took while I was in the room Results & Data Results & Data ([facility]) Vital Signs (Past 12 Hours) Vital Signs Temp Pulse Resp BP BP Pulse Ox O2 Del Method 11/05/22 15:25 36.5 C 78 16 175/91 H 97 Room Air 11/05/22 12:16 36.3 C L 66 18 170/101 H 168/116 H 98 Room Air 11/05/22 07:33 36.6 C 77 18 185/110 H 201/102 H 95 Room Air Laboratory Results Abnormal lab results 11/05/22 Range/Units 06:45 PT 18.0 H (9.0-12.0) Seconds INR 1.7 H (0.9-1.1) Medications Administered Home Medications Medication Instructions Recorded Confirmed Last Taken cholecalciferol (vitamin D3) 50 2,000 units PO QAM 07/16/20 11/04/22 11/04/22 mcg (2,000 unit) tablet bisoprolol 5 1 tab PO QAM #90 tabs 12/06/21 11/04/22 11/04/22 mg-hydrochlorothiazide 6.25 mg tablet levothyroxine 100 mcg tablet 100 mcg PO DAILY #90 tabs 09/01/22 11/04/22 11/04/22 mecobalamin (vitamin B12) 1,000 1,000 mcg PO DAILY #90 tabs 09/19/22 11/04/22 11/04/22 mcg chewable tablet lovastatin 40 mg tablet 40 mg PO HS 11/04/22 11/04/22 11/04/22 warfarin 2.5 mg tablet 2.5 mg PO MOTUWETHFR 11/04/22 11/04/22 11/04/22 Active Medications Generic Name Dose Route Start Last Admin Trade Name Freq PRN Reason Stop Dose Admin Cyanocobalamin 1,000 mcg 11/04/22 18:36 11/05/22 08:48 Cyanocobalamin 1000 Mcg/Ml Vial IM 12/04/22 18:35 1,000 mcg QAM DAVID Administration Thiamine HCl 500 mg/ Sodium 55 mls @ 220 mls/hr 11/04/22 18:36 11/05/22 11:57 Chloride IV 12/04/22 18:35 Infused Q8H DAVID Infusion Folic Acid 1 mg/ Syringe 10 mls @ 5 mls/min 11/05/22 09:00 11/05/22 08:48 IV 12/05/22 08:59 5 mls/min QAM DAVID Administration Levothyroxine Sodium 100 mcg 11/05/22 06:30 11/05/22 04:54 Levothyroxine Sodium 100 Mcg Tablet PO 12/05/22 06:29 100 mcg DAILYBB DAVID Administration Lovastatin 40 mg 11/04/22 21:00 11/04/22 20:28 Lovastatin 20 Mg Tab PO 12/04/22 20:59 40 mg HS DAVID Administration Metoprolol Tartrate 25 mg 11/05/22 09:00 11/05/22 08:49 Metoprolol Tartrate 25 Mg Tab PO 12/05/22 08:59 25 mg BID DAVID Administration Vitamin D 2,000 units 11/05/22 09:00 11/05/22 08:48 Cholecalciferol 1,000 Units 25 Mcg Tab PO 12/05/22 08:59 2,000 units QAM DAVID Administration Warfarin Sodium 2.5 mg 11/04/22 19:30 11/05/22 08:49 Warfarin Sod 2.5 Mg Tab PO 12/04/22 19:29 2.5 mg DAILY DAVID Administration PG Care Time/CCT Total # of Minutes Spent Total Time Spent with Patient: Total time spent is greater than 50% in coordination of care (as documented) at patient's floor/unit and/or counseling patient: Coding Level of Care Code 34093 Subseq Hosp Care Lvl 2 Diagnoses Altered mental status R41.82 Alcohol abuse F10.10 Vitamin B 12 deficiency E53.8 Hypothyroidism E03.9 Hypothyroidism type: acquired Dyslipidemia E78.5 HTN (hypertension) I10 Hypertension type: essential hypertension Atrial fibrillation I48.21 Atrial fibrillation type: permanent Vitamin D deficiency E55.9 Essential tremor G25.0 DVT prophylaxis Z29.9 Discharge planning issues Z02.9 (1) Hypothyroidism Hypothyroidism type: acquired Qualified Code(s): E03.9 - Hypothyroidism, unspecified (2) HTN (hypertension) Hypertension type: essential hypertension Qualified Code(s): I10 - Essential (primary) hypertension (3) Atrial fibrillation Atrial fibrillation type: permanent Qualified Code(s): I48.21 - Permanent atrial fibrillation
[2022-11-05] MEDS ORDERED: HALOPERIDOL LACTATE 5 MG/ML 1 ML VIAL IM PRN (17:32)
[2022-11-05] MEDS ORDERED: risperiDONE 0.5 MG TABLET PO PRN (17:32)
[2022-11-05] MEDS: amLODIPine BESYLATE 5 MG TAB PO SCH (17:48)
[2022-11-05] MEDS: LOVASTATIN 20 MG TAB PO SCH (22:21)
[2022-11-06] MEDS: THIAMINE HCL 500 MG in SODIUM CHLORIDE 0.9% 50 ML IV SCH ×2 (01:58→10:20)
[2022-11-06] MEDS: LEVOTHYROXINE SODIUM 100 MCG TABLET PO SCH (05:16)
[2022-11-06] MEDS: ACETAMINOPHEN 325 MG TAB PO PRN (05:17)
[2022-11-06] MEDS: METOPROLOL TARTRATE 25 MG TAB PO SCH ×2 (08:11→22:10)
[2022-11-06] MEDS: amLODIPine BESYLATE 5 MG TAB PO SCH (08:12)
[2022-11-06] MEDS: CHOLECALCIFEROL 1,000 UNITS 25 MCG TAB PO SCH (08:12)
[2022-11-06] MEDS: WARFARIN SOD 2.5 MG TAB PO SCH (08:13)
[2022-11-06] MEDS: FOLIC ACID 1 MG in SYRINGE 9.8 ML IV SCH (08:16)
[2022-11-06 08:23] LABS: INR 1.7 (0.9-1.1); Prothrombin Time 17.7 Seconds (9.0-12.0)
[2022-11-06] MEDS: CYANOCOBALAMIN 1000 MCG/ML VIAL IM SCH (08:32)
--- NOTE | 2022-11-06 09:32 | Procedure Note ---
Procedure Note Date of Service November 06, 2022 Note Called because of difficulty placing a Asencio catheter and male with urinary retention. Upon arrival the patient was evaluated, he was noted to have a distended bladder I sterilely prepped and draped in the standard fashion for catheter placement A 20 [place] coud catheter was inserted without difficulty with immediate return of clear urine He tolerated the procedure very well and remained in stable condition Plan to leave catheter in place until medically suitable for removal No further urological follow-up required Start tamsulosin now to improve odds of voiding (order placed) Coding
[2022-11-06 09:42] LABS: Albumin Globulin Ratio 1.4 (0.9-2); Albumin Level 3.9 gm/dl (3.4-5.0); BUN Creatinine Ratio 17.1 (10-20); Bilirubin,Total 1.1 mg/dl (0.2-1.0); Calcium 8.6 mg/dl (8.5-10.1); Creatinine Clr Calc Pharmacy 49.6 ml/min; Est GFR (African American) 71.3 ml/min; Est GFR (Non-African American) 61.5 ml/min; Globulin 2.7 gm/dl (2.5-4.0); Potassium 3.6 mmol/L (3.5-5.1); Total Protein 6.6 gm/dl (6.0-8.3)
[2022-11-06 09:51] LABS: Hemoglobin 14.1 g/dl (14.0-18.0); Mean Corpuscular Hemoglobin 31.1 pg (25.0-34.0); Mean Corpuscular Hgb Conc 34.4 g/dL (32.0-36.0); Mean Corpuscular Volume 90.3 fL (80.0-100.0); Mean Platelet Volume 11.1 fL (9.4-12.4); Platelet Count 130 K/uL (130-400); RDW Standard Deviation 39.3 fL (36.4-46.3); Red Blood Count 4.54 M/uL (4.63-6.08); White Blood Count 8.46 K/ul (4.8-10.8)
--- NOTE | 2022-11-06 10:55 | Hospitalist Progress Note ---
Date of Service November 06, 2022 Assessment & Plan (1) Altered mental status: Plan: Delirium- rispaerfdal changed 11/06 to 0.5mg bid ( from prn) plus 0.5 mg hs, getting one dose Ativan 0.25 mg iv continue Haldol 5 mg iv bid prn agitation started last night-was effective, and slept some hours D/W RN in detail to pass on to successive shifts : 1. Family to be with him when they can- son on way this am after having left earlier this am 2. 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 Very low B12 found on [id number] shots started several months ago. Patient misses p.o. B12. P.o. not sufficient advanced age- needs monthly shots after daily for a week . No evidence of alcohol withdrawal (2) Alcohol abuse: Plan: Certainly appears to be a "root cause problem"encouraged cessation. For now a WSS and follow for any withdrawal. He is currently about over 48 hours after his last drink. No clinical e/o alc withdrawl here. (3) Vitamin B 12 deficiency: Plan: Profoundly low, and given that it does seem to have a potential role in his con fusion/overall deteriorationreplacing IM to ensure reliable delivery. 1000 mcg IM daily for a week, then monthly indefinitely. earlier thiamine iv ordered iv tid - with delirium- will change to po now. Folate 1 mg IV daily (4) Urinary retention: Plan: Urology on case BPH- home tamsulosin (5) Hypothyroidism: Plan: Very mildly elevated TSH, I do wonder how often he is taking his home Synthroid. Given that his INR is therapeutic, he is probably taking his meds at least some, given that his TSH was low in July and mildly high nowundoubtedly is taking his med somewhat erratically. Home dose, follow-up TSH in about 4 weeks. (6) Dyslipidemia: Plan: Continue home meds for now, might be able to DC questioning utility (7) HTN (hypertension): Plan: Poorly controlled blood pressure, home bisoprololHCTZ changed to metoprolol 25 twice daily and HCTZ. 11/05 stopped HCTZ and started Norvasc 5 mg daily (8) Atrial fibrillation: Plan: Continue beta-blockerrate controlled. Continue Coumadin 2.5 mg , anticoagulated daily INR for now INR 1.7 last 2 d give 2 mg extra today 11/06 (9) Vitamin D deficiency: Plan: Continue replacement as at home 2000 u daily, level 32 on 11/04 (10) Essential tremor: Plan: on admit day :Interestingly had very little tremor at rest until we started to talk about following for alcohol withdrawal, at which point he started to have a fairly characteristic essential tremor, which caused him to laugh at the situation No tremor noted last 2 days (11) DVT prophylaxis: Plan: Anticoagulated with Coumadin (12) Discharge planning issues: Plan: PT/OT, supportive care Family was already looking at increasing care at homethey actually have caregivers set to start 3 hours a day, and at the same time were going through the process with a geriatric compliance attorney as far as what type of placement/long-term care would be ideal. We discussed the possibility that, while hopefully he can go home with extra support, he might need a facilitybut also discussed that currently beds are so tight that it might be placement with what is available rather than what was a good fit for himto that end, should that situation arise, they would consider doing what they can do supportive at home while working on placement that would be best for him. At this point disposition contingent on his progress as well as PT/OT assessmeents and ongoing family input. Delirium measure as above and plan discharge w family next few days. Plan PT evaluation. Consider placement for worsening cognition and poor safety alone at home. 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 Urine retention overnight , unsuccessful catheterisation attempt. Blood clot noted to be blocking urine flow when a coude was inserted. Then urology inserted a Asencio catherand got 700 ccc . 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 [employer]", but when oriented, repeats he is in hospital names month correctly Results & Data Results & [facility] ([facility]) Vital Signs (Past 12 Hours) Vital Signs Temp Pulse Resp BP BP Pulse Ox O2 Del Method 11/06/22 07:22 36.4 C L 73 18 96 Room Air 11/06/22 07:17 181/89 H 11/06/22 06:58 36.4 C L 79 20 193/93 H 98 Room Air 11/05/22 23:00 67 20 138/89 94 Room Air Laboratory Results Abnormal lab results 11/06/22 11/06/22 11/06/22 Range/Units 07:41 07:44 07:44 RBC 4.54 L (4.63-6.08) M/uL PT 17.7 H (9.0-12.0) Seconds INR 1.7 H (0.9-1.1) Glucose 104 H (70-99(Fasting)) mg/dl Total Bilirubin 1.1 H (0.2-1.0) mg/dl PG Care Time/CCT Total # of Minutes Spent Total Time Spent with Patient: Total time spent is greater than 50% in coordination of care (as documented) at patient's floor/unit and/or counseling patient: Coding Level of Care Code 93024 Subseq Hosp Care Lvl 3 Diagnoses Altered mental status R41.82 Alcohol abuse F10.10 Vitamin B 12 deficiency E53.8 Urinary retention R33.9 Hypothyroidism E03.9 Hypothyroidism type: acquired Dyslipidemia E78.5 HTN (hypertension) I10 Hypertension type: essential hypertension Atrial fibrillation I48.21 Atrial fibrillation type: permanent Vitamin D deficiency E55.9 Essential tremor G25.0 DVT prophylaxis Z29.9 Discharge planning issues Z02.9 (1) Atrial fibrillation Atrial fibrillation type: permanent Qualified Code(s): I48.21 - Permanent atrial fibrillation (2) Hypothyroidism Hypothyroidism type: acquired Qualified Code(s): E03.9 - Hypothyroidism, unspecified (3) HTN (hypertension) Hypertension type: essential hypertension Qualified Code(s): I10 - Essential (primary) hypertension
[2022-11-06] MEDS ORDERED: LORazepam 0.25 MG in SYRINGE 0 ML IV ONE (11:00)
[2022-11-06] MEDS ORDERED: WARFARIN SOD 2 MG TAB PO ONE (11:15)
[2022-11-06] MEDS: risperiDONE 0.5 MG TABLET PO SCH (18:15)
[2022-11-06] MEDS: TAMSULOSIN HCL 0.4 MG CAP PO SCH (21:50)
[2022-11-06] MEDS: LOVASTATIN 20 MG TAB PO SCH (21:50)
[2022-11-06] MEDS: risperiDONE 1 MG TABLET PO SCH (22:08)
[2022-11-07] MEDS: LEVOTHYROXINE SODIUM 100 MCG TABLET PO SCH (06:25)
[2022-11-07 08:12] LABS: INR 2.3 (0.9-1.1); Prothrombin Time 23.1 Seconds (9.0-12.0)
[2022-11-07] MEDS: METOPROLOL TARTRATE 25 MG TAB PO SCH ×2 (08:57→20:04)
[2022-11-07] MEDS: FOLIC ACID 1 MG in SYRINGE 9.8 ML IV SCH (08:58)
[2022-11-07] MEDS: WARFARIN SOD 2.5 MG TAB PO SCH (08:59)
[2022-11-07] MEDS: risperiDONE 0.5 MG TABLET PO SCH ×2 (09:00→17:18)
[2022-11-07] MEDS: CHOLECALCIFEROL 1,000 UNITS 25 MCG TAB PO SCH (09:00)
[2022-11-07] MEDS: amLODIPine BESYLATE 5 MG TAB PO SCH (09:00)
[2022-11-07] MEDS: CYANOCOBALAMIN 1000 MCG/ML VIAL IM SCH (09:01)
[2022-11-07] MEDS: ACETAMINOPHEN 325 MG TAB PO PRN (09:04)
--- NOTE | 2022-11-07 10:51 | Hospitalist Progress Note ---
Date of Service November 07, 2022 Assessment & Plan (1) Altered mental status: Plan: worsening dementia-this time admitted because was had called the police after seeing someone in his living room who was not there: Evaluated by neurology earlier this year and felt to be aging related and some vascular component. Delirium- risperdal new medchanged 11/06 to 0.5mg bid ( from prn) plus 1 mg hs, Doing very well. No Haldol needed in a couple of days-got only 1 dose on11/05 night. D/W RN in detail 11/06 to pass on to successive shifts : 1. Family to be with him when they can- son on way this am after having left earlier this am 2. 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 Very low B12 found on [id number] shots started several months ago. Patient misses p.o. B12. P.o. not sufficient advanced age- needs monthly shots after daily for a week here. No evidence of alcohol withdrawal po thiamine (2) Alcohol abuse: Plan: Certainly appears to be a "root cause problem"encouraged cessation. He is currently about over 72 hours after his last drink. No clinical e/o alc withdrawl here. (3) Vitamin B 12 deficiency: Plan: Profoundly low, and given that it does seem to have a potential role in his confusion/overall deteriorationreplacing IM to ensure reliable delivery. 1000 mcg IM daily for a week, then monthly indefinitely. earlier thiamine iv ordered iv tid - with delirium- will change to po now. Folate 1 mg IV daily (4) Urinary retention: Plan: Urology had to insert Asencio catheter yesterday morning as this was a difficult straight catheterization BPH- home tamsulosin Consider starting finasteride (5) Hypothyroidism: Plan: Very mildly elevated TSH, I do wonder how often he is taking his home Synthroid. Given that his INR is therapeutic, he is probably taking his meds at least some, given that his TSH was low in July and mildly high nowundoubtedly is taking his med somewhat erratically. Home dose, follow-up TSH in about 4 weeks. (6) Dyslipidemia: Plan: Continue home meds for now, might be able to DC questioning utility (7) HTN (hypertension): Plan: Poorly controlled blood pressure, home bisoprololHCTZ changed to metoprolol 25 twice daily and HCTZ. 11/05 stopped HCTZ and started Norvasc 5 mg daily BP improving (8) Atrial fibrillation: Plan: Continue beta-blockerrate controlled. Continue Coumadin 2.5 mg , anticoagulated daily INR for now INR therapeutic (9) Vitamin D deficiency: Plan: Continue replacement as at home 2000 u daily, level 32 on 11/04 (10) Essential tremor: Plan: on admit day :Interestingly had very little tremor at rest until we started to talk about following for alcohol withdrawal, at which point he started to have a fairly characteristic essential tremor, which caused him to laugh at the situa tion No tremor noted last 2 days (11) DVT prophylaxis: Plan: Anticoagulated with Coumadin (12) Discharge planning issues: Plan: PT/OT, supportive care family only has household health arrangements being done at home. I spoken with the daughter Jocy and his son Rogelio a couple of times. It is unsafe for the patient to live alone at home. There is some disagreement with the brother Alexis Case management following Plan PT evaluation. Consider placement for worsening cognition and poor safety alone at home. Admission and Anticipated Discharge Date Admission Date: November 04, 2022 Subjective Seen at 10 AM with son Rogelio at the bedside. The patient was eating breakfast in bed. Per son he slept most of the afternoon yesterday. Ate a good dinner. Slept through the night. The patient has no complaints. He says he is in the basement of a [employer] building Physical Exam Physical Exam: well looking elderly male, calm and finishing breakfast. 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 Also mentioning a childhood friend of his son as having visited yesterday. ( They have not seen her in many years). 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 Gait not tested Results & Data Results & Data ([facility]) Vital Signs (Past 12 Hours) Vital Signs Temp Pulse Resp BP Pulse Ox O2 Del Method 11/07/22 08:47 36.4 C L 77 18 153/83 H 96 Room Air 11/06/22 22:56 36.6 C 60 22 153/94 H 98 Room Air Laboratory Results INR 2.3 Medications Administered Home Medications Medication Instructions Recorded Confirmed Last Taken cholecalciferol (vitamin D3) 50 2,000 units PO QAM 07/16/20 11/04/22 11/04/22 mcg (2,000 unit) tablet bisoprolol 5 1 tab PO QAM #90 tabs 12/06/21 11/04/22 11/04/22 mg-hydrochlorothiazide 6.25 mg tablet levothyroxine 100 mcg tablet 100 mcg PO DAILY #90 tabs 09/01/22 11/04/2211/04 mecobalamin (vitamin B12) 1,000 1,000 mcg PO DAILY #90 tabs 09/19/22 11/04/22 11/04/22 mcg chewable tablet lovastatin 40 mg tablet 40 mg PO HS 11/04/22 11/04/22 11/04/22 warfarin 2.5 mg tablet 2.5 mg PO MOTUWETHFR 11/04/22 11/04/22 11/04/22 Active Medications Generic Name Dose Route Start Last Admin Trade Name Freq PRN Reason Stop Dose Admin Acetaminophen 650 mg 11/04/22 18:36 11/07/22 09:04 Acetaminophen 325 Mg Tab PO 12/04/22 18:35 650 mg Q4H PRN Administration pain/fever Amlodipine Besylate 5 mg 11/05/22 16:45 11/07/22 09:00 Amlodipine Besylate 5 Mg Tab PO 12/05/22 16:44 5 mg QAM DAVID Administration Cyanocobalamin 1,000 mcg 11/04/22 18:36 11/07/22 09:01 Cyanocobalamin 1000 Mcg/Ml Vial IM 12/04/22 18:35 1,000 mcg QAM DAVID Administration Haloperidol Lactate 5 mg 11/05/22 17:32 11/05/22 17:47 Haloperidol Lactate 5 Mg/Ml 1 Ml Vial IM 12/05/22 17:31 5 mg BID PRN Administration Agitation Folic Acid 1 mg/ Syringe 10 mls @ 5 mls/min 11/05/22 09:00 11/07/22 08:58 IV 12/05/22 08:59 5 mls/min QAM DAVID Administration Levothyroxine Sodium 100 mcg 11/05/22 06:30 12/12/22 06:25 Levothyroxine Sodium 100 Mcg Tablet PO 12/05/22 06:29 100 mcg DAILYBB DAVID Administration Lovastatin 40 mg 11/04/22 21:00 11/06/22 21:50 Lovastatin 20 Mg Tab PO 12/04/22 20:59 40 mg HS DAVID Administration Metoprolol Tartrate 25 mg 11/05/22 09:00 11/07/22 08:57 Metoprolol Tartrate 25 Mg Tab PO 12/05/22 08:59 25 mg BID DAVID Administration Risperidone 0.5 mg 11/06/22 17:00 11/07/22 09:00 Risperidone 0.5 Mg Tablet PO 12/06/22 16:59 0.5 mg BIDM DAVID Administration Risperidone 1 mg 11/06/22 21:00 11/06/22 22:08 Risperidone 1 Mg Tablet PO 12/06/22 20:59 1 mg HS DAVID Administration Tamsulosin HCl 0.4 mg 11/06/22 21:00 11/06/22 21:50 Tamsulosin Hcl 0.4 Mg Cap PO 12/06/22 20:59 0.4 mg HS DAVID Administration Vitamin D 2,000 units 11/05/22 09:00 11/07/22 09:00 Cholecalciferol 1,000 Units 25 Mcg Tab PO 12/05/22 08:59 2,000 units QAM DAVID Administration Warfarin Sodium 2.5 mg 11/04/22 19:30 11/07/22 08:59 Warfarin Sod 2.5 Mg Tab PO 12/04/22 19:29 2.5 mg DAILY DAVID Administration PG Care Time/CCT Total # of Minutes Spent Total Time Spent with Patient: Total time spent is greater than 50% in coordination of care (as documented) at patient's floor/unit and/or counseling patient: Coding Level of Care Code 73172 Subseq Hosp Care Lvl 2 Diagnoses Altered mental status R41.82 Alcohol abuse F10.10 Vitamin B 12 deficiency E53.8 Urinary retention R33.9 Hypothyroidism E03.9 Hypothyroidism type: acquired Dyslipidemia E78.5 HTN (hypertension) I10 Hypertension type: essential hypertension Atrial fibrillation I48.21 Atrial fibrillation type: permanent Vitamin D deficiency E55.9 Essential tremor G25.0 DVT prophylaxis Z29.9 Discharge planning issues Z02.9 (1) Atrial fibrillation Atrial fibrillation type: permanent Qualified Code(s): I48.21 - Permanent atrial fibrillation (2) Hypothyroidism Hypothyroidism type: acquired Qualified Code(s): E03.9 - Hypothyroidism, unspecified (3) HTN (hypertension) Hypertension type: essential hypertension Qualified Code(s): I10 - Essential (primary) hypertension
[2022-11-07] MEDS: THIAMINE HCL 100 MG TAB PO SCH (11:26)
[2022-11-07] MEDS: TAMSULOSIN HCL 0.4 MG CAP PO SCH (20:04)
[2022-11-07] MEDS: risperiDONE 1 MG TABLET PO SCH (20:04)
[2022-11-07] MEDS: LOVASTATIN 20 MG TAB PO SCH (20:05)
[2022-11-08] MEDS: LEVOTHYROXINE SODIUM 100 MCG TABLET PO SCH (06:14)
[2022-11-08] MEDS: risperiDONE 0.5 MG TABLET PO SCH (09:16)
[2022-11-08] MEDS: CHOLECALCIFEROL 1,000 UNITS 25 MCG TAB PO SCH (09:16)
[2022-11-08] MEDS: amLODIPine BESYLATE 5 MG TAB PO SCH (09:16)
[2022-11-08 09:17] LABS: INR 2.4 (0.9-1.1); Prothrombin Time 24.7 Seconds (9.0-12.0)
[2022-11-08] MEDS: CYANOCOBALAMIN 1000 MCG/ML VIAL IM SCH (09:17)
[2022-11-08] MEDS: THIAMINE HCL 100 MG TAB PO SCH (09:18)
[2022-11-08] MEDS: METOPROLOL TARTRATE 25 MG TAB PO SCH ×2 (09:18→20:06)
[2022-11-08] MEDS: WARFARIN SOD 2.5 MG TAB PO SCH (09:18)
--- NOTE | 2022-11-08 16:01 | Hospitalist Progress Note ---
Date of Service November 08, 2022 Assessment & Plan (1) Altered mental status: Plan: Supportive care. Rule out UTI. Risperdal discontinued until mental status improves. Underlying dementia. Suspected combined metabolic and toxic encephalopathy (2) Alcohol abuse: Plan: Certainly appears to be a "root cause problem"encouraged cessation. He is over 72 hours after his last drink. No overt withdrawal symptoms. (3) Vitamin B 12 deficiency: Plan: Profoundly low. Potentially a contributor to his mental status changes. Replacing IM to ensure reliable delivery. (4) Urinary retention: Plan: Urology had to insert Asencio catheter yesterday morning as this was a difficult straight catheterization. Known BPH-continue home tamsulosin. Consider starting finasteride (5) Hypothyroidism: Plan: Continue current thyroid replacement therapy. Very mildly elevated TSH. (6) Dyslipidemia: Plan: Heart healthy diet. Continue current medical management (7) HTN (hypertension): Plan: Poorly controlled blood pressure on admission. Home bisoprololHCTZ changed to metoprolol and amlodipine. Improved (8) Atrial fibrillation: Plan: Continue beta-blockerrate controlled. Anticoagulated on Coumadin. Daily INR. (9) Vitamin D deficiency: Plan: Continue replacement as at home 2000 u daily (10) Essential tremor: Plan: Minor. We will follow. (11) DVT prophylaxis: Plan: Anticoagulated with Coumadin (12) Discharge planning issues: Plan: PT/OT, supportive care, family issues. Plan Probable discharge to [facility] this week Admission and Anticipated Discharge Date Admission Date: November 04, 2022 Subjective The patient is lethargic. This could be due to the Risperdal which is new. It is discontinued temporarily. INR 2.4 today. Anticipate discharge to [facility] later this week. Blood pressure is mildly elevated on amlodipine which has replaced hydrochlorothiazide this admission. Review of Systems Review of Systems: Cannot assess review of systems due to lethargy Physical Exam Physical Exam: General- lethargic. Arousable. HEENT-head atraumatic and normocephalic, pupils equal and reactive to light, extraocular muscles intact. Mucous membranes dry orally Neck-no lymphadenopathy or thyromegaly, trachea midline Chest-clear to auscultation percussion. No rales wheezing or rhonchi Cardiac-regular rate and rhythm, normal S1 and S2 Abdomen-normal bowel sounds, nontender, no hepatosplenomegaly Extremities-no cyanosis, clubbing, or edema Neuro-cranial nerves II through XII intact, motor and sensory function within normal limits, strength symmetrical, no focal deficits Psych-difficult to assess due to lethargy Results & Data Results & Data ([facility]) Vital Signs (Past 12 Hours) Vital Signs Temp Pulse Resp BP Pulse Ox O2 Del Method 11/08/22 15:03 36.3 C L 71 18 96/63 L 94 Room Air 11/08/22 08:50 Room Air 11/08/22 07:55 36.8 C 81 18 163/90 H 95 Room Air Laboratory Results 11/06/22 07:44 11/06/22 07:44 PG Care Time/CCT Total # of Minutes Spent Total Time Spent with Patient: Total time spent is greater than 50% in coordination of care (as documented) at patient's floor/unit and/or counseling patient: Coding Level of Care Code 32079 Subseq Hosp Care Lvl 3 Diagnoses Altered mental status R41.82 Alcohol abuse F10.10 Vitamin B 12 deficiency E53.8 Urinary retention R33.9 Hypothyroidism E03.9 Hypothyroidism type: acquired Dyslipidemia E78.5 HTN (hypertension) I10 Hypertension type: essential hypertension Atrial fibrillation I48.21 Atrial fibrillation type: permanent Vitamin D deficiency E55.9 Essential tremor G25.0 DVT prophylaxis Z29.9 Discharge planning issues Z02.9 (1) Hypothyroidism Hypothyroidism type: acquired Qualified Code(s): E03.9 - Hypothyroidism, unspecified (2) HTN (hypertension) Hypertension type: essential hypertension Qualified Code(s): I10 - Essential (primary) hypertension (3) Atrial fibrillation Atrial fibrillation type: permanent Qualified Code(s): I48.21 - Permanent atrial fibrillation
[2022-11-08] MEDS: LOVASTATIN 20 MG TAB PO SCH (20:06)
[2022-11-08] MEDS: TAMSULOSIN HCL 0.4 MG CAP PO SCH (20:06)
[2022-11-08] MEDS ORDERED: SODIUM CHLORIDE 0.9% 1000ML 500 ML IV ONE (20:39)
[2022-11-09] MEDS: LEVOTHYROXINE SODIUM 100 MCG TABLET PO SCH (06:23)
[2022-11-09 07:10] LABS: INR 2.6 (0.9-1.1); Prothrombin Time 26.5 Seconds (9.0-12.0)
[2022-11-09] MEDS: CHOLECALCIFEROL 1,000 UNITS 25 MCG TAB PO SCH (08:19)
[2022-11-09] MEDS: WARFARIN SOD 2.5 MG TAB PO SCH (08:19)
[2022-11-09] MEDS: METOPROLOL TARTRATE 25 MG TAB PO SCH ×2 (08:19→21:26)
[2022-11-09] MEDS: CYANOCOBALAMIN 1000 MCG/ML VIAL IM SCH (08:20)
[2022-11-09] MEDS: THIAMINE HCL 100 MG TAB PO SCH (08:20)
[2022-11-09] MEDS: amLODIPine BESYLATE 5 MG TAB PO SCH (11:33)
[2022-11-09] MEDS: QUEtiapine FUMARATE 25 MG TABLET PO SCH ×2 (11:45→21:25)
--- NOTE | 2022-11-09 12:10 | Hospitalist Progress Note ---
Date of Service November 09, 2022 Assessment & Plan (1) Altered mental status: Plan: Supportive care. Rule out UTI. Risperdal discontinued on November 08 and mental status has improved. We will try Seroquel 25 mg twice a day going forward. Underlying dementia. Suspected combined metabolic and toxic encephalopathy (2) Alcohol abuse: Plan: Certainly appears to be a "root cause problem"encouraged cessation. He is over 72 hours after his last drink. No overt withdrawal symptoms. (3) Vitamin B 12 deficiency: Plan: Profoundly low. Potentially a contributor to his mental status changes. Replacing IM to ensure reliable delivery. (4) Urinary retention: Plan: Urology had to insert Asencio catheter this admission. This will remain in place and he will follow-up with urology as an outpatient (5) Hypothyroidism: Plan: Continue current thyroid replacement therapy. Very mildly elevated TSH. (6) Dyslipidemia: Plan: Heart healthy diet. Continue current medical management (7) HTN (hypertension): Plan: Poorly controlled blood pressure on admission. Home bisoprololHCTZ changed to metoprolol and amlodipine. Improved (8) Atrial fibrillation: Plan: Continue beta-blockerrate controlled. Anticoagulated on Coumadin. Daily INR. (9) Vitamin D deficiency: Plan: Continue replacement on 2000 u daily (10) Essential tremor: Plan: Minor. We will follow. (11) DVT prophylaxis: Plan: Anticoagulated with Coumadin (12) Discharge planning issues: Plan: PT/OT, supportive care, family issues. Plan [facility] Admission and Anticipated Discharge Date Admission Date: November 04, 2022 Subjective Alert today. Risperdal was discontinued yesterday, November 08. Son is at the bedside. Seroquel will be started to see if this is better tolerated and continues to control his behavior. OT and PT ordered on a daily basis. Anticipate eventual discharge to [facility] Review of Systems Review of Systems: Cannot assess review of systems due to baseline dementia Physical Exam Physical Exam: General-alert. Baseline dementia with confusion HEENT-head atraumatic and normocephalic, pupils equal and reactive to light, extraocular muscles intact. Neck-no lymphadenopathy or thyromegaly, trachea midline Chest-clear to auscultation percussion. No rales wheezing or rhonchi Cardiac-regular rate and rhythm, normal S1 and S2 Abdomen-normal bowel sounds, nontender, no hepatosplenomegaly Extremities-no cyanosis, clubbing, or edema Neuro-cranial nerves II through XII intact, motor and sensory function within normal limits, strength symmetrical, no focal deficits Psych-difficult to assess due to dementia Results & Data Results & Data ([facility]) Vital Signs (Past 12 Hours) Vital Signs Temp Pulse Resp BP Pulse Ox O2 Del Method 11/09/22 07:52 35.9 C L 83 14 126/83 95 Room Air 11/09/22 04:44 133/85 Laboratory Results 11/06/22 07:44 11/06/22 07:44 PG Care Time/CCT Total # of Minutes Spent Total Time Spent with Patient: Total time spent is greater than 50% in coordination of care (as documented) at patient's floor/unit and/or counseling patient: Coding Level of Care Code 31786 Subseq Hosp Care Lvl 3 Diagnoses Altered mental status R41.82 Alcohol abuse F10.10 Vitamin B 12 deficiency E53.8 Urinary retention R33.9 Hypothyroidism E03.9 Hypothyroidism type: acquired Dyslipidemia E78.5 HTN (hypertension) I10 Hypertension type: essential hypertension Atrial fibrillation I48.21 Atrial fibrillation type: permanent Vitamin D deficiency E55.9 Essential tremor G25.0 DVT prophylaxis Z29.9 Discharge planning issues Z02.9 (1) Hypothyroidism Hypothyroidism type: acquired Qualified Code(s): E03.9 - Hypothyroidism, unspecified (2) HTN (hypertension) Hypertension type: essential hypertension Qualified Code(s): I10 - Essential (primary) hypertension (3) Atrial fibrillation Atrial fibrillation type: permanent Qualified Code(s): I48.21 - Permanent atrial fibrillation
[2022-11-09] MEDS: LOVASTATIN 20 MG TAB PO SCH (21:27)
[2022-11-09] MEDS: TAMSULOSIN HCL 0.4 MG CAP PO SCH (21:28)
[2022-11-10] MEDS: LEVOTHYROXINE SODIUM 100 MCG TABLET PO SCH (06:03)
[2022-11-10] MEDS: CHOLECALCIFEROL 1,000 UNITS 25 MCG TAB PO SCH (08:22)
[2022-11-10] MEDS: QUEtiapine FUMARATE 25 MG TABLET PO SCH ×2 (08:22→20:38)
[2022-11-10] MEDS: WARFARIN SOD 2.5 MG TAB PO SCH (08:22)
[2022-11-10] MEDS: amLODIPine BESYLATE 5 MG TAB PO SCH (08:22)
[2022-11-10] MEDS: THIAMINE HCL 100 MG TAB PO SCH (08:22)
[2022-11-10] MEDS: METOPROLOL TARTRATE 25 MG TAB PO SCH ×2 (08:22→20:37)
[2022-11-10] MEDS: CYANOCOBALAMIN 1000 MCG/ML VIAL IM SCH (08:23)
[2022-11-10 10:01] LABS: INR 2.9 (0.9-1.1); Prothrombin Time 29.5 Seconds (9.0-12.0)
--- NOTE | 2022-11-10 12:15 | Hospitalist Progress Note ---
Date of Service November 10, 2022 Assessment & Plan (1) Altered mental status: Plan: Supportive care. Rule out UTI. Risperdal discontinued on November 08 and mental status has improved. Seroquel 25 mg twice a day working well. Underlying dementia. (2) Alcohol abuse: Plan: no withdrawl here (3) Vitamin B 12 deficiency: Plan: Profoundly low. Potentially a contributor to his mental status changes. Replacing IM to ensure reliable delivery. (4) Urinary retention: Plan: Urology had to insert Asencio catheter this admission. This will remain in place and he will follow-up with urology as an outpatient (5) Hypothyroidism: Plan: Continue current thyroid replacement therapy. Very mildly elevated TSH. (6) Dyslipidemia: Plan: Heart healthy diet. Continue current medical management (7) HTN (hypertension): Plan: Poorly controlled blood pressure on admission. Home bisoprololHCTZ changed to metoprolol and amlodipine. Improved normotensive 11/10 after brief hypotensive episode yesterday when was likely euvolemic- had little over 200 cc u output one shift yesterday (8) Atrial fibrillation: Plan: Continue beta-blockerrate controlled. Anticoagulated on Coumadin. Daily INR. 2.7 on 11/10 (9) Vitamin D deficiency: Plan: Continue replacement on 2000 u daily (10) Essential tremor: Plan: Minor. We will follow. (11) DVT prophylaxis: Plan: Anticoagulated with Coumadin (12) Discharge planning issues: Plan: PT/OT, supportive care, f Plan to SNF- family in agreement Plan [facility]able [facility] to [facility] this [facility] D/W DAVION Mcginnis in detail at rounds Family members spend time here which is good for delirious patients . Admission and Anticipated Discharge Date Admission Date: November 04, 2022 Subjective Noted events last two days. Was sleepy day before and risperdal stopped. Yesterday no po intake and significant agitation in afternoon- started on Seroquel 25 mg bid. Slep well. Calm today- ate 100% breakfast, pleasantly confused, drank two picthers of water before 11 am His children have been in attendance most of yesterday and this am. 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 and it serves as a hotel "Nov or Dec" to Head and neck :dry tongue No thyromegaly/ JVD Chest is clear to auscultation Abdomen slightly distended ,nontender Asencio bag with light brown urine 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 no 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, 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 Gait not tested Results & Data Results & Data ([place]) Vital Signs (Past 12 Hours) Vital Signs Temp Pulse Resp BP Pulse Ox O2 Del Method 11/10/22 09:39 Room Air 11/10/22 08:09 37.0 C 94 H 20 129/68 94 Room Air Laboratory Results Abnormal lab results 11/10/22 Range/Units 09:25 PT 29.5 H (9.0-12.0) Seconds INR 2.9 H (0.9-1.1) Medications Administered Home Medications Medication Instructions Recorded Confirmed Last Taken cholecalciferol (vitamin D3) 50 2,000 units PO QAM 07/16/20 11/04/22 11/04/22 mcg (2,000 unit) tablet bisoprolol 5 1 tab PO QAM #90 tabs 12/06/21 11/04/22 11/04/22 mg-hydrochlorothiazide 6.25 mg tablet levothyroxine 100 mcg tablet 100 mcg PO DAILY #90 tabs 09/01/22 11/04/22 11/04/22 mecobalamin (vitamin B12) 1,000 1,000 mcg PO DAILY #90 tabs 09/19/22 11/04/22 11/04/22 mcg chewable tablet lovastatin 40 mg tablet 40 mg PO HS 11/04/22 11/04/22 11/04/22 warfarin 2.5 mg tablet 2.5 mg PO MOTUWETHFR 11/04/22 11/04/22 11/04/22 Active Medications Generic Name Dose Route Start Last Admin Trade Name Freq PRN Reason Stop Dose Admin Acetaminophen 650 mg 11/04/22 18:36 11/07/22 09:04 Acetaminophen 325 Mg Tab PO 12/04/22 18:35 650 mg Q4H PRN Administration pain/fever Amlodipine Besylate 5 mg 11/05/22 16:45 11/10/22 08:22 Amlodipine Besylate 5 Mg Tab PO 12/05/22 16:44 5 mg QAM DAVID Administration Cyanocobalamin 1,000 mcg 11/04/22 18:36 11/10/22 08:23 Cyanocobalamin 1000 Mcg/Ml Vial IM 12/04/22 18:35 1,000 mcg QAM DAVID Administration Haloperidol Lactate 5 mg 11/05/22 17:32 11/05/22 17:47 Haloperidol Lactate 5 Mg/Ml 1 Ml Vial IM 12/05/22 17:31 5 mg BID PRN Administration Agitation Levothyroxine Sodium 100 mcg 11/05/22 06:30 11/10/22 06:03 Levothyroxine Sodium 100 Mcg Tablet PO 12/05/22 06:29 100 mcg DAILYBB DAVID Administration Lovastatin 40 mg 11/04/22 21:00 11/09/22 21:27 Lovastatin 20 Mg Tab PO 12/04/22 20:59 40 mg HS DAVID Administration Metoprolol Tartrate 25 mg 11/05/22 09:00 11/10/22 08:22 Metoprolol Tartrate 25 Mg Tab PO 12/05/22 08:59 25 mg BID DAVID Administration Quetiapine Fumarate 25 mg 11/09/22 10:30 11/10/22 08:22 Quetiapine Fumarate 25 Mg Tablet PO 12/09/22 10:29 25 mg BID DAVID Administration Tamsulosin HCl 0.4 mg 11/06/22 21:00 11/09/22 21:28 Tamsulosin Hcl 0.4 Mg Cap PO 12/06/22 20:59 0.4 mg HS DAVID Administration Thiamine HCl 100 mg 11/07/22 10:45 11/10/22 08:22 Thiamine Hcl 100 Mg Tab PO 12/07/22 10:44 100 mg QAM DAVID Administration Vitamin D 2,000 units 11/05/22 09:00 11/10/22 08:22 Cholecalciferol 1,000 Units 25 Mcg Tab PO 12/05/22 08:59 2,000 units QAM DAVID Administration Warfarin Sodium 2.5 mg 11/04/22 19:30 11/10/22 08:22 Warfarin Sod 2.5 Mg Tab PO 12/04/22 19:29 2.5 mg DAILY DAVID Administration PG Care Time/CCT Total # of Minutes Spent Total Time Spent with Patient: Total time spent is greater than 50% in coordination of care (as documented) at patient's floor/unit and/or counseling patient: Coding Level of Care Code 81660 Subseq Hosp Care Lvl 2 Diagnoses Altered mental status R41.82 Alcohol abuse F10.10 Vitamin B 12 deficiency E53.8 Urinary retention R33.9 Hypothyroidism E03.9 Hypothyroidism type: acquired Dyslipidemia E78.5 HTN (hypertension) I10 Hypertension type: essential hypertension Atrial fibrillation I48.21 Atrial fibrillation type: permanent Vitamin D deficiency E55.9 Essential tremor G25.0 DVT prophylaxis Z29.9 Discharge planning issues Z02.9 (1) Hypothyroidism Hypothyroidism type: acquired Qualified Code(s): E03.9 - Hypothyroidism, unspecified (2) HTN (hypertension) Hypertension type: essential hypertension Qualified Code(s): I10 - Essential (primary) hypertension (3) Atrial fibrillation Atrial fibrillation type: permanent Qualified Code(s): I48.21 - Permanent atr ial fibrillation
[2022-11-10] MEDS: LOVASTATIN 20 MG TAB PO SCH (20:37)
[2022-11-10] MEDS: TAMSULOSIN HCL 0.4 MG CAP PO SCH (20:39)
[2022-11-11] MEDS: LEVOTHYROXINE SODIUM 100 MCG TABLET PO SCH (06:04)
[2022-11-11] MEDS: THIAMINE HCL 100 MG TAB PO SCH (08:34)
[2022-11-11] MEDS: CHOLECALCIFEROL 1,000 UNITS 25 MCG TAB PO SCH (08:34)
[2022-11-11] MEDS: CYANOCOBALAMIN 1000 MCG/ML VIAL IM SCH (08:34)
[2022-11-11] MEDS: amLODIPine BESYLATE 5 MG TAB PO SCH (08:35)
[2022-11-11] MEDS: WARFARIN SOD 2.5 MG TAB PO SCH (08:35)
[2022-11-11] MEDS: QUEtiapine FUMARATE 25 MG TABLET PO SCH ×2 (08:35→20:16)
[2022-11-11] MEDS: METOPROLOL TARTRATE 25 MG TAB PO SCH ×2 (08:35→20:16)
[2022-11-11 09:52] LABS: INR 2.9 (0.9-1.1); Prothrombin Time 29.1 Seconds (9.0-12.0)
[2022-11-11 10:04] LABS: Albumin Level 3.6 gm/dl (3.4-5.0); BUN Creatinine Ratio 25.2 (10-20); Bilirubin,Total 1.1 mg/dl (0.2-1.0); Calcium 8.6 mg/dl (8.5-10.1); Creatinine Clr Calc Pharmacy 47.9 ml/min; Est GFR (African American) 68.3 ml/min; Est GFR (Non-African American) 58.9 ml/min; Globulin 3.6 gm/dl (2.5-4.0); Potassium 3.6 mmol/L (3.5-5.1); Total Protein 7.2 gm/dl (6.0-8.3)
[2022-11-11] MEDS ORDERED: SODIUM CHLORIDE 0.9% 1000ML 1,000 ML IV SCH (12:15)
--- NOTE | 2022-11-11 13:14 | Hospitalist Progress Note ---
Date of Service November 11, 2022 Assessment & Plan (1) Altered mental status: Plan: Worsening dementia with occasional hallucinations at home. And intermittent agitation heredoing fairly well on Seroquel twice a day started 3 days ago Risperdal discontinued on November 08 and mental status has improved. Seroquel 25 mg twice a day working well. Underlying dementia. (2) Alcohol abuse: Plan: no withdrawl here (3) Vitamin B 12 deficiency: Plan: Profoundly low. Potentially a contributor to his mental status changes. Rep lacing 1000 MCG IM daily for 8 days. Stop n start oral. To get 1000 MCG IM every month (4) Urinary retention: Plan: Urology had to insert Asencio catheter this admission. This will remain in place and he will follow-up with urology as an outpatient (5) Hypothyroidism: Plan: Continue current thyroid replacement therapy. Very mildly elevated TSH. (6) Dyslipidemia: Plan: Heart healthy diet. Continue current medical management (7) HTN (hypertension): Plan: Poorly controlled blood pressure on admission. Home bisoprololHCTZ changed to metoprolol and amlodipine. Improved normotensive 11/10 after brief hypotensive episode yesterday when was likely euvolemic- had little over 200 cc u output one shift yesterday 11/11 hypertensive this morningstop amlodipine Appears euvolemic (8) Atrial fibrillation: Plan: Continue beta-blockerrate controlled. Anticoagulated on Coumadin. Daily INR. 2.9 11/11 (9) Vitamin D deficiency: Plan: Continue replacement on 2000 u daily (10) Essential tremor: Plan: Minor. We will follow. (11) DVT prophylaxis: Plan: Anticoagulated with Coumadin (12) Discharge planning issues: Plan: PT/OT ongoingnote from yesterday reveals significant assistance for hand placement and walker was required. Plan to SNF- family in agreement I was unable to reach his son Alexis on the phone yesterday. The patient has 3 other children . Their phone numbers and not in the demographic sheet no family present during rounds today or yesterday Plan Bed [email or web address] at [facility]. D/W DAVION Abarca . Admission and Anticipated Discharge Date Admission Date: November 04, 2022 Subjective seen at 1145 h Per nursing had a good night. Has not been agitated. Change clothes and stood with a walker today. He ate on his own Around 11 AM his blood pressure was seen to be 84/51 on the left arm automatic. Manual checking around 835545/50. Patient says he has been sleepy in the most the morning. Says he is eating like PEG and will get fast before he leaves the hospital. Not oriented to person-told me I was his counselor Denies chest pain or dizziness. Denied weakness or shortness of breath Physical Exam Physical Exam: well looking elderly male, calm and pleasant, sitting in chair , Asking appropriate questionsso is my blood pressure low ? What about being sleepy? 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 Results & Data Results & Data ([facility]) Vital Signs (Past 12 Hours) Vital Signs Temp Pulse Resp BP BP Pulse Ox O2 Del Method 11/11/22 12:52 92/60 L 11/11/22 08:00 Room Air 11/11/22 12:03 79/58 L 11/11/22 08:00 36.5 C 72 18 84/51 L 116/73 98 Room Air Medications Administered Home Medications Medication Instructions Recorded Confirmed Last Taken cholecalciferol (vitamin D3) 50 2,000 units PO QAM 07/16/20 11/04/22 11/04/22 mcg (2,000 unit) tablet bisoprolol 5 1 tab PO QAM #90 tabs 12/06/21 11/04/22 11/04/22 mg-hydrochlorothiazide 6.25 mg tablet levothyroxine 100 mcg tablet 100 mcg PO DAILY #90 tabs 09/01/22 11/04/22 11/04/22 mecobalamin (vitamin B12) 1,000 1,000 mcg PO DAILY #90 tabs 09/19/22 11/04/22 11/04/22 mcg chewable tablet lovastatin 40 mg tablet 40 mg PO HS 11/04/22 11/04/22 11/04/22 warfarin 2.5 mg tablet 2.5 mg PO MOTUWETHFR 11/04/22 11/04/22 11/04/22 Active Medications Generic Name Dose Route Start Last Admin Trade Name Freq PRN Reason Stop Dose Admin Acetaminophen 650 mg 11/04/22 18:36 11/07/22 09:04 Acetaminophen 325 Mg Tab PO 12/04/22 18:35 650 mg Q4H PRN Administration pain/fever Amlodipine Besylate 5 mg 11/05/22 16:45 11/11/22 08:35 Amlodipine Besylate 5 Mg Tab PO 12/05/22 16:44 5 mg QAM DAVID Administration Cyanocobalamin 1,000 mcg 11/04/22 18:36 11/11/22 08:34 Cyanocobalamin 1000 Mcg/Ml Vial IM 12/04/22 18:35 1,000 mcg QAM DAVID Administration Haloperidol Lactate 5 mg 11/05/22 17:32 11/05/22 17:47 Haloperidol Lactate 5 Mg/Ml 1 Ml Vial IM 12/05/22 17:31 5 mg BID PRN Administration Agitation Sodium Chloride 1,000 mls @ 999 mls/hr 11/11/22 12:15 11/11/22 12:00 Nss 1000ml IV 11/11/22 13:15 999 mls/hr .Q1H1M DAVID Administration Levothyroxine Sodium 100 mcg 11/05/22 06:30 11/11/22 06:04 Levothyroxine Sodium 100 Mcg Tablet PO 12/05/22 06:29 100 mcg DAILYBB DAVID Administration Lovastatin 40 mg 11/04/22 21:00 11/10/22 20:37 Lovastatin 20 Mg Tab PO 12/04/22 20:59 40 mg HS DAVID Administration Metoprolol Tartrate 25 mg 11/05/22 09:00 11/11/22 08:35 Metoprolol Tartrate 25 Mg Tab PO 12/05/22 08:59 25 mg BID DAVID Administration Quetiapine Fumarate 25 mg 11/09/22 10:30 11/11/22 08:35 Quetiapine Fumarate 25 Mg Tablet PO 12/09/22 10:29 25 mg BID DAVID Administration Tamsulosin HCl 0.4 mg 11/06/22 21:00 11/10/22 20:39 Tamsulosin Hcl 0.4 Mg Cap PO 12/06/22 20:59 0.4 mg HS DAVID Administration Thiamine HCl 100 mg 11/07/22 10:45 11/11/22 08:34 Thiamine Hcl 100 Mg Tab PO 12/07/22 10:44 100 mg QAM DAVID Administration Vitamin D 2,000 units 11/05/22 09:00 11/11/22 08:34 Cholecalciferol 1,000 Units 25 Mcg Tab PO 12/05/22 08:59 2,000 units QAM DAVID Administration Warfarin Sodium 2.5 mg 11/04/22 19:30 11/11/22 08:35 Warfarin Sod 2.5 Mg Tab PO 12/04/22 19:29 2.5 mg DAILY DAVID Administration PG Care Time/CCT Total # of Minutes Spent Total Time Spent with Patient: Total time spent is greater than 50% in coordination of care (as documented) at patient's floor/unit and/or counseling patient: Coding Level of Care Code 62814 Subseq Hosp Care Lvl 3 Diagnoses Altered mental status R41.82 Alcohol abuse F10.10 Vitamin B 12 deficiency E53.8 Urinary retention R33.9 Hypothyroidism E03.9 Hypothyroidism type: acquired Dyslipidemia E78.5 HTN (hypertension) I10 Hypertension type: essential hypertension Atrial fibrillation I48.21 Atrial fibrillation type: permanent Vitamin D deficiency E55.9 Essential tremor G25.0 DVT prophylaxis Z29.9 Discharge planning issues Z02.9 (1) Hypothyroidism Hypothyroidism type: acquired Qualified Code(s): E03.9 - Hypothyroidism, unspecified (2) HTN (hypertension) Hypertension type: essential hypertension Qualified Code(s): I10 - Essential (primary) hypertension (3) Atrial fibrillation Atrial fibrillation type: permanent Qualified Code(s): I48.21 - Permanent atrial fibrillation
[2022-11-11] MEDS: LOVASTATIN 20 MG TAB PO SCH (20:15)
[2022-11-11] MEDS: TAMSULOSIN HCL 0.4 MG CAP PO SCH (20:17)
[2022-11-12] MEDS: LEVOTHYROXINE SODIUM 100 MCG TABLET PO SCH (05:41)
[2022-11-12] MEDS: WARFARIN SOD 2.5 MG TAB PO SCH (09:40)
[2022-11-12] MEDS: CYANOCOBALAMIN (B-12) 500 MCG TABLET PO SCH (09:40)
[2022-11-12] MEDS: CHOLECALCIFEROL 1,000 UNITS 25 MCG TAB PO SCH (09:40)
[2022-11-12] MEDS: METOPROLOL TARTRATE 25 MG TAB PO SCH ×2 (09:40→19:47)
[2022-11-12] MEDS: THIAMINE HCL 100 MG TAB PO SCH (09:40)
[2022-11-12] MEDS: QUEtiapine FUMARATE 25 MG TABLET PO SCH ×2 (09:40→19:48)
--- NOTE | 2022-11-12 13:32 | Hospitalist Progress Note ---
Date of Service November 12, 2022 Assessment & Plan (1) Altered mental status: Plan: Mr. Benitez is an 82 yo M who was admitted for AMS, clinically improving. - acute on chronic, most likely delirium from mild dehydration - history of underlying dementia - with recent worsening and occasional hallucinations at home - Risperdal discontinued on November 08 and mental status subsequently improved. - Seroquel twice a day started 3 days ago, seems to be doing well (2) Alcohol abuse: Plan: - history of - no withdrawal here (3) Vitamin B 12 deficiency: Plan: - Profoundly low. Potentially a contributor to his mental status changes. Replacing 1000 MCG IM daily for 8 days. Stop n start oral. To get 1000 MCG IM every month (4) Urinary retention: Plan: Urology had to insert Asencio catheter this admission. This will remain in place and he will follow-up with urology as an outpatient (5) Hypothyroidism: Plan: Continue current thyroid replacement therapy. Very mildly elevated TSH. (6) Dyslipidemia: Plan: Heart healthy diet. Continue current medical management (7) HTN (hypertension): Plan: - Poorly controlled blood pressure on admission. - Home bisoprololHCTZ changed to metoprolol and amlodipine - the latter was subsequently stopped, leaving him with metoprolol monotherapy (8) Atrial fibrillation: Plan: Continue beta-blockerrate controlled. Anticoagulated on Coumadin. Check INR every other day 2.9 11/11 (9) Vitamin D deficiency: Plan: Continue replacement on 2000 u daily (10) Essential tremor: Plan: Minor. We will follow. On Metorpolol (11) DVT prophylaxis: Plan: - Anticoagulated with Coumadin (12) Discharge planning issues: Plan: - PT/OT ongoingnote from yesterday reveals significant assistance for hand placement and walker was required. - Plan to SNF- family in agreement, anticipated discharge on 11/16/22 to [facility] care Plan . Admission and Anticipated Discharge Date Admission Date: November 04, 2022 Subjective no acute events overnight. Says he is feeling better today. Review of Systems Review of Systems: All systems reviewed & are unremarkable except as noted in HPI & below Physical Exam Constitutional: WD/WN, vitals as above Eyes: + anicteric sclerae ENMT: external ear and nose normal, oropharynx normal Neck: trachea midline, no thyromegaly Respiratory: normal respiratory effort Musculoskeletal: Head/Neck/Chest: normocephalic and head atraumatic Skin: no rashes, warm and dry Neurologic: moves all extremities Psychiatric: Orientation: alert, oriented to person and oriented to place; + not oriented to time Genitourinary: Asencio catheter in place, draining yellow urine without visible blood clots Results & Data Results & Data ([facility]) Vital Signs (Past 12 Hours) Vital Signs Temp Pulse Resp BP Pulse Ox O2 Del Method 11/12/22 11:00 Room Air 11/12/22 08:26 36.5 C 75 16 142/84 H 95 Room Air PG Care Time/CCT Total # of Minutes Spent Total Time Spent with Patient: Total time spent is greater than 50% in coordination of care (as documented) at patient's floor/unit and/or counseling patient: Coding Level of Care Code 95779 Subseq Hosp Care Lvl 1 Diagnoses Altered mental status R41.82 Alcohol abuse F10.10 Vitamin B 12 deficiency E53.8 Urinary retention R33.9 Hypothyroidism E03.9 Hypothyroidism type: acquired Dyslipidemia E78.5 HTN (hypertension) I10 Hypertension type: essential hypertension Atrial fibrillation I48.21 Atrial fibrillation type: permanent Vitamin D deficiency E55.9 Essential tremor G25.0 DVT prophylaxis Z29.9 Discharge planning issues Z02.9 (1) Hypothyroidism Hypothyroidism type: acquired Qualified Code(s): E03.9 - Hypothyroidism, unspecified (2) HTN (hypertension) Hypertension type: essential hypertension Qualified Code(s): I10 - Essential (primary) hypertension (3) Atrial fibrillation Atrial fibrillation type: permanent Qualified Code(s): I48.21 - Permanent atrial fibrillation
[2022-11-12] MEDS: POLYETHYLENE (MIRALAX) 17 GM PACK PO PRN (18:34)
[2022-11-12] MEDS: LOVASTATIN 20 MG TAB PO SCH (19:48)
[2022-11-12] MEDS: TAMSULOSIN HCL 0.4 MG CAP PO SCH (19:49)
[2022-11-13] MEDS: LEVOTHYROXINE SODIUM 100 MCG TABLET PO SCH (05:57)
[2022-11-13 07:26] LABS: INR 2.6 (0.9-1.1); Prothrombin Time 25.9 Seconds (9.0-12.0)
[2022-11-13] MEDS: CYANOCOBALAMIN (B-12) 500 MCG TABLET PO SCH (09:06)
[2022-11-13] MEDS: THIAMINE HCL 100 MG TAB PO SCH (09:06)
[2022-11-13] MEDS: CHOLECALCIFEROL 1,000 UNITS 25 MCG TAB PO SCH (09:06)
[2022-11-13] MEDS: QUEtiapine FUMARATE 25 MG TABLET PO SCH ×2 (09:06→20:03)
[2022-11-13] MEDS: WARFARIN SOD 2.5 MG TAB PO SCH (09:06)
[2022-11-13] MEDS: METOPROLOL TARTRATE 25 MG TAB PO SCH ×2 (09:06→20:03)
--- NOTE | 2022-11-13 11:49 | Hospitalist Progress Note ---
Date of Service November 13, 2022 Assessment & Plan (1) Altered mental status: Plan: Mr. Benitez is an 82 yo M who was admitted for AMS, clinically improving. - acute on chronic, most likely delirium from mild dehydration - history of underlying dementia - with recent worsening and occasional hallucinations at home - Risperdal discontinued on November 08 and mental status subsequently improved. - Seroquel twice a day started severa; days ago, seems to be doing well (2) Alcohol abuse: Plan: - history of - no withdrawal here (3) Vitamin B 12 deficiency: Plan: - Profoundly low. Potentially a contributor to his mental status changes. Replacing 1000 MCG IM daily for 8 days. To get 1000 MCG IM every month thereafter (4) Urinary retention: Plan: Urology had to insert Asencio catheter this admission. This will remain in place and he will follow-up with urology as an outpatient (5) Hypothyroidism: Plan: Continue current thyroid replacement therapy. Very mildly elevated TSH. (6) Dyslipidemia: Plan: Heart healthy diet. Continue current medical management (7) HTN (hypertension): Plan: - Poorly controlled blood pressure on admission. - Home bisoprololHCTZ changed to metoprolol and amlodipine - the latter was subsequently stopped, leaving him with metoprolol monotherapy (8) Atrial fibrillation: Plan: Continue beta-blockerrate controlled. Anticoagulated on Coumadin. Check INR every other day 2.9 11/11 (9) Vitamin D deficiency: Plan: Continue replacement on 2000 u daily (10) Essential tremor: Plan: Minor. We will follow. On Metorpolol (11) DVT prophylaxis: Plan: - Anticoagulated with Coumadin (12) Discharge planning issues: Plan: - PT/OT ongoingnote from yesterday reveals significant assistance for hand placement and walker was required. - Plan to SNF- family in agreement, anticipated discharge on 11/16/22 to [facility] care. Update provided to son on 11/12/22 Plan . Admission and Anticipated Discharge Date Admission Date: November 04, 2022 Subjective no acute events overnight. requests a miralax dose Review of Systems Review of Systems: All systems reviewed & are unremarkable except as noted in HPI & below Physical Exam Constitutional: WD/WN, vitals as above Eyes: + anicteric sclerae ENMT: external ear and nose normal, oropharynx normal Neck: trachea midline, no thyromegaly Respiratory: normal respiratory effort Musculoskeletal: Head/Neck/Chest: normocephalic and head atraumatic Skin: no rashes, warm and dry Neurologic: moves all extremities Psychiatric: Orientation: alert, oriented to person and oriented to place; + not oriented to time Results & Data Results & Data ([facility]) Vital Signs (Past 12 Hours) Vital Signs Temp Pulse Resp BP Pulse Ox O2 Del Method 11/13/22 07:37 36.4 C L 71 16 135/77 95 Room Air 11/13/22 07:34 Room Air PG Care Time/CCT Total # of Minutes Spent Total Time Spent with Patient: Total time spent is greater than 50% in coordination of care (as documented) at patient's floor/unit and/or counseling patient: Coding Level of Care Code 85867 Subseq Hosp Care Lvl 1 Diagnoses Altered mental status R41.82 Alcohol abuse F10.10 Vitamin B 12 deficiency E53.8 Urinary retention R33.9 Hypothyroidism E03.9 Hypothyroidism type: acquired Dyslipidemia E78.5 HTN (hypertension) I10 Hypertension type: essential hypertension Atrial fibrillation I48.21 Atrial fibrillation type: permanent Vitamin D deficiency E55.9 Essential tremor G25.0 DVT prophylaxis Z29.9 Discharge planning issues Z02.9 (1) Hypothyroidism Hypothyroidism type: acquired Qualified Code(s): E03.9 - Hypothyroidism, unspecified (2) HTN (hypertension) Hypertension type: essential hypertension Qualified Code(s): I10 - Essential (primary) hypertension (3) Atrial fibrillation Atrial fibrillation type: permanent Qualified Code(s): I48.21 - Permanent atrial fibrillation
[2022-11-13] MEDS: POLYETHYLENE (MIRALAX) 17 GM PACK PO PRN (13:26)
[2022-11-13] MEDS: LOVASTATIN 20 MG TAB PO SCH (20:03)
[2022-11-13] MEDS: TAMSULOSIN HCL 0.4 MG CAP PO SCH (20:03)
[2022-11-14] MEDS: LEVOTHYROXINE SODIUM 100 MCG TABLET PO SCH (06:23)
[2022-11-14] MEDS: METOPROLOL TARTRATE 25 MG TAB PO SCH ×2 (08:42→20:18)
[2022-11-14] MEDS: CYANOCOBALAMIN (B-12) 500 MCG TABLET PO SCH (08:42)
[2022-11-14] MEDS: THIAMINE HCL 100 MG TAB PO SCH (08:42)
[2022-11-14] MEDS: QUEtiapine FUMARATE 25 MG TABLET PO SCH ×2 (08:42→20:17)
[2022-11-14] MEDS: WARFARIN SOD 2.5 MG TAB PO SCH (08:42)
[2022-11-14] MEDS: CHOLECALCIFEROL 1,000 UNITS 25 MCG TAB PO SCH (08:42)
--- NOTE | 2022-11-14 10:58 | Hospitalist Progress Note ---
Date of Service November 14, 2022 Assessment & Plan (1) Altered mental status: Plan: Worsening dementia with occasional hallucinations at home. And intermittent agitation heredoing fairly well on Seroquel twice a day started 3 days ago Risperdal discontinued on November 08 and mental status has improved. Seroquel 25 mg twice a day working well. Underlying dementia. (2) Alcohol abuse: Plan: no withdrawl here (3) Vitamin B 12 deficiency: Plan: Profoundly low. Potentially a contributor to his mental status changes. Rep lacing 1000 MCG IM daily for 8 days. Stop n start oral. To get 1000 MCG IM every month (4) Urinary retention: Plan: Urology had to insert Asencio catheter this admission. This will remain in place and he will follow-up with urology as an outpatient (5) Hypothyroidism: Plan: Continue current thyroid replacement therapy. Very mildly elevated TSH. (6) Dyslipidemia: Plan: Heart healthy diet. Continue current medical management (7) HTN (hypertension): Plan: Poorly controlled blood pressure on admission. Home bisoprololHCTZ changed to metoprolol and amlodipine. Improved normotensive 11/10 after brief hypotensive episode yesterday when was likely euvolemic- had little over 200 cc u output one shift yesterday 11/11 hypertensive this morningstop amlodipine Appears euvolemic (8) Atrial fibrillation: Plan: Continue beta-blockerrate controlled. Anticoagulated on Coumadin. Daily INR. 2.9 11/11 (9) Vitamin D deficiency: Plan: Continue replacement on 2000 u daily (10) Essential tremor: Plan: Minor. We will follow. (11) DVT prophylaxis: Plan: Anticoagulated with Coumadin (12) Discharge planning issues: Plan: PT/OT ongoingnote from yesterday reveals significant assistance for hand placement and walker was required. Plan to SNF- family in agreement I was unable to reach his son Alexis on the phone yesterday. The patient has 3 other children . Their phone numbers and not in the demographic sheet no family present during rounds today or yesterday Plan Bed [id number] at [facility]. D/W DAVION Abarca . Admission and Anticipated Discharge Date Admission Date: November 04, 2022 Subjective at 1040, pleasant and conversant Physical Exam Physical Exam: well looking elderly male, calm and pleasant, sitting in chair , Asking appropriate questionsso is my blood pressure low ? What about being sleepy? Head and neck :dry tongue No thyromegaly/ JVD Chest is clear to auscultation Abdomen slightly distended ,nontender Asencio bag with tea colored urine and bloody urine seen in the proximal part of the Asencio catheter tube Extremities no edema, dry skin lower extremity [employer]: moves all 4 ext 5 x 5 elbow flexors Results & Data Results & Data ([facility]) Vital Signs (Past 12 Hours) Vital Signs Temp Pulse Resp BP Pulse Ox O2 Del Method 11/14/22 07:08 36.7 C 67 18 161/89 H 96 Room Air PG Care Time/CCT Total # of Minutes Spent Total Time Spent with Patient: Total time spent is greater than 50% in coordination of care (as documented) at patient's floor/unit and/or counseling patient: Coding Level of Care Code 88417 Subseq Hosp Care Lvl 2 Diagnoses Altered mental status R41.82 Alcohol abuse F10.10 Vitamin B 12 deficiency E53.8 Urinary retention R33.9 Hypothyroidism E03.9 Hypothyroidism type: acquired Dyslipidemia E78.5 HTN (hypertension) I10 Hypertension type: essential hypertension Atrial fibrillation I48.21 Atrial fibrillation type: permanent Vitamin D deficiency E55.9 Essential tremor G25.0 DVT prophylaxis Z29.9 Discharge planning issues Z02.9 (1) Atrial fibrillation Atrial fibrillation type: permanent Qualified Code(s): I48.21 - Permanent atrial fibrillation (2) Hypothyroidism Hypothyroidism type: acquired Qualified Code(s): E03.9 - Hypothyroidism, unspecified (3) HTN (hypertension) Hypertension type: essential hypertension Qualified Code(s): I10 - Essential (primary) hypertension
--- NOTE | 2022-11-14 19:24 | Hospitalist Progress Note ---
Date of Service November 14, 2022 Assessment & Plan (1) Altered mental status: Plan: Worsening dementia with occasional hallucinations at home. And intermittent agitation heredoing fairly well on Seroquel twice a day started 3 days ago Risperdal discontinued on November 08 and mental status has improved. Seroquel 25 mg twice a day working well. Underlying dementia. (2) Alcohol abuse: Plan: no withdrawl here (3) Vitamin B 12 deficiency: Plan: Profoundly low. Potentially a contributor to his mental status changes. Rep lacing 1000 MCG IM daily for 8 days. Stop n start oral. To get 1000 MCG IM every month (4) Urinary retention: Plan: Urology had to insert Asencio catheter this admission. This will remain in place and he will follow-up with urology as an outpatient was the plan- it is now 8 days since Asencio was inserted. Will consult urology to advise tomorrow (5) Hypothyroidism: Plan: Continue current thyroid replacement therapy. Very mildly elevated TSH. (6) Dyslipidemia: Plan: Heart healthy diet. Continue current medical management (7) HTN (hypertension): Plan: Poorly controlled blood pressure on admission. Home bisoprololHCTZ changed to metoprolol and amlodipine. Improved only on metoprolol Appears euvolemic (8) Atrial fibrillation: Plan: Continue beta-blockerrate controlled. Anticoagulated on Coumadin. Daily INR. 11/13 2.6 (9) Vitamin D deficiency: Plan: Continue replacement on 2000 u daily (10) Essential tremor: Plan: Minor. We will follow. (11) DVT prophylaxis: Plan: Anticoagulated with Coumadin (12) Discharge planning issues: Plan: PT/OT ongoingnote from yesterday reveals significant assistance for hand placement and walker was required. Plan to SNF- family in agreement Discharge 11/16- bed available Plan Bed /21 at [facility]. D/W DAVION Abarca . Admission and Anticipated Discharge Date Admission Date: November 04, 2022 Subjective Pleasant, no complaints, says he is eating well, no agitation reported by nursing Physical Exam Physical Exam: Seen at 10:35 AM today, the patient was pleasant and conversant, well looking, lying in bed with the TV on, told me I was a psychiatrist but he knew he was in [facility] and it was October Head and neck moist tongue Chest clear to auscultation Abdomen nontender, Asencio catheter with tea colored urine about 50 cc in bag. Insight and judgment limited, affect cheerful Results & Data Results & Data ([facility]) Vital Signs (Past 12 Hours) Vital Signs Temp Pulse Resp BP Pulse Ox O2 Del Method 11/14/22 15:03 36.5 C 68 17 104/66 93 Room Air 11/14/22 09:00 Room Air Medications Administered Home Medications Medication Instructions Recorded Confirmed Last Taken cholecalciferol (vitamin D3) 50 2,000 units PO QAM 07/16/20 11/04/22 11/04/22 mcg (2,000 unit) tablet bisoprolol 5 1 tab PO QAM #90 tabs 12/06/21 11/04/22 11/04/22 mg-hydrochlorothiazide 6.25 mg tablet levothyroxine 100 mcg tablet 100 mcg PO DAILY #90 tabs 09/01/22 11/04/22 11/04/22 mecobalamin (vitamin B12) 1,000 1,000 mcg PO DAILY #90 tabs 09/19/22 11/04/22 11/04/22 mcg chewable tablet lovastatin 40 mg tablet 40 mg PO HS 11/04/22 11/04/22 11/04/22 warfarin 2.5 mg tablet 2.5 mg PO MOTUWETHFR 11/04/22 11/04/22 11/04/22 Active Medications Generic Name Dose Route Start Last Admin Trade Name Freq PRN Reason Stop Dose Admin Acetaminophen 650 mg 11/04/22 18:36 11/07/22 09:04 Acetaminophen 325 Mg Tab PO 12/04/22 18:35 650 mg Q4H PRN Administration pain/fever Cyanocobalamin 500 mcg 11/12/22 09:00 11/14/22 08:42 Cyanocobalamin (B-12) 500 Mcg Tablet PO 12/12/22 08:59 500 mcg QAM DAVID Administration Levothyroxine Sodium 100 mcg 11/05/22 06:30 11/14/22 06:23 Levothyroxine Sodium 100 Mcg Tablet PO 12/05/22 06:29 100 mcg DAILYBB DAVID Administration Lovastatin 40 mg 11/04/22 21:00 11/13/22 20:03 Lovastatin 20 Mg Tab PO 12/04/22 20:59 40 mg HS DAVID Administration Metoprolol Tartrate 25 mg 11/05/22 09:00 11/14/22 08:42 Metoprolol Tartrate 25 Mg Tab PO 12/05/22 08:59 25 mg BID DAVID Administration Polyethylene Glycol 17 gm 11/04/22 18:36 11/13/22 13:26 Polyethylene (Miralax) 17 Gm Pack PO 12/04/22 18:35 17 gm DAILY PRN Administration Constipation Quetiapine Fumarate 25 mg 11/09/22 10:30 11/14/22 08:42 Quetiapine Fumarate 25 Mg Tablet PO 12/09/22 10:29 25 mg BID DAVID Administration Tamsulosin HCl 0.4 mg 11/06/22 21:00 11/13/22 20:03 Tamsulosin Hcl 0.4 Mg Cap PO 12/06/22 20:59 0.4 mg HS DAVID Administration Thiamine HCl 100 mg 11/07/22 10:45 11/14/22 08:42 Thiamine Hcl 100 Mg Tab PO 12/07/22 10:44 100 mg QAM DAVID Administration Vitamin D 2,000 units 11/05/22 09:00 11/14/22 08:42 Cholecalciferol 1,000 Units 25 Mcg Tab PO 12/05/22 08:59 2,000 units QAM DAVID Administration Warfarin Sodium 2.5 mg 11/04/22 19:30 11/14/22 08:42 Warfarin Sod 2.5 Mg Tab PO 12/04/22 19:29 2.5 mg DAILY DAVID Administration PG Care Time/CCT Total # of Minutes Spent Total Time Spent with Patient: Total time spent is greater than 50% in coordination of care (as documented) at patient's floor/unit and/or counseling patient: Coding Level of Care Code 34584 Subseq Hosp Care Lvl 1 Diagnoses Altered mental status R41.82 Alcohol abuse F10.10 Vitamin B 12 deficiency E53.8 Urinary retention R33.9 Hypothyroidism E03.9 Hypothyroidism type: acquired Dyslipidemia E78.5 HTN (hypertension) I10 Hypertension type: essential hypertension Atrial fibrillation I48.21 Atrial fibrillation type: permanent Vitamin D deficiency E55.9 Essential tremor G25.0 DVT prophylaxis Z29.9 Discharge planning issues Z02.9 (1) Hypothyroidism Hypothyroidism type: acquired Qualified Code(s): E03.9 - Hypothyroidism, unspecified (2) HTN (hypertension) Hypertension type: essential hypertension Qualified Code(s): I10 - Essential (primary) hypertension (3) Atrial fibrillation Atrial fibrillation type: permanent Qualified Code(s): I48.21 - Permanent atrial fibrillation
[2022-11-14] MEDS: POLYETHYLENE (MIRALAX) 17 GM PACK PO PRN (20:17)
[2022-11-14] MEDS: MELATONIN 3 MG TAB PO PRN (20:17)
[2022-11-14] MEDS: LOVASTATIN 20 MG TAB PO SCH (20:17)
[2022-11-14] MEDS: TAMSULOSIN HCL 0.4 MG CAP PO SCH (20:18)
[2022-11-15] MEDS: LEVOTHYROXINE SODIUM 100 MCG TABLET PO SCH (05:57)
[2022-11-15 09:31] LABS: INR 2.3 (0.9-1.1); Prothrombin Time 23.1 Seconds (9.0-12.0)
[2022-11-15] MEDS: CYANOCOBALAMIN (B-12) 500 MCG TABLET PO SCH (10:05)
[2022-11-15] MEDS: QUEtiapine FUMARATE 25 MG TABLET PO SCH ×2 (10:05→19:35)
[2022-11-15] MEDS: METOPROLOL TARTRATE 25 MG TAB PO SCH ×2 (10:05→19:35)
[2022-11-15] MEDS: CHOLECALCIFEROL 1,000 UNITS 25 MCG TAB PO SCH (10:06)
[2022-11-15] MEDS: WARFARIN SOD 2.5 MG TAB PO SCH (10:06)
[2022-11-15] MEDS: THIAMINE HCL 100 MG TAB PO SCH (10:06)
[2022-11-15] MEDS: POLYETHYLENE (MIRALAX) 17 GM PACK PO PRN (17:32)
[2022-11-15] MEDS: LOVASTATIN 20 MG TAB PO SCH (19:34)
[2022-11-15] MEDS: TAMSULOSIN HCL 0.4 MG CAP PO SCH (19:35)
[2022-11-15] MEDS: MELATONIN 3 MG TAB PO PRN (19:58)
--- NOTE | 2022-11-15 22:07 | Hospitalist Progress Note ---
Date of Service November 15, 2022 Assessment & Plan (1) Altered mental status: Plan: Worsening dementia with occasional hallucinations at home. And intermittent agitation heredoing fairly well on Seroquel twice a day started 3 days ago Risperdal discontinued on November 08 and mental status has improved. Seroquel 25 mg twice a day working well. Underlying dementia. (2) Alcohol abuse: Plan: no withdrawl here (3) Vitamin B 12 deficiency: Plan: Profoundly low. Potentially a contributor to his mental status changes. Rep lacing 1000 MCG IM daily for 8 days. Stop n start oral. To get 1000 MCG IM every month (4) Urinary retention: Plan: Urology had to insert Asencio catheter this admission. This will remain in place and he will follow-up with urology as an outpatient was the plan- it is now 8 days since Asencio was inserted. Will consult urology to advise tomorrow (5) Hypothyroidism: Plan: Continue current thyroid replacement therapy. Very mildly elevated TSH. (6) Dyslipidemia: Plan: Heart healthy diet. Continue current medical management (7) HTN (hypertension): Plan: Poorly controlled blood pressure on admission. Home bisoprololHCTZ changed to metoprolol and amlodipine. Improved only on metoprolol Appears euvolemic (8) Atrial fibrillation: Plan: Continue beta-blockerrate controlled. Anticoagulated on Coumadin. Daily INR. 11/13 2.6 (9) Vitamin D deficiency: Plan: Continue replacement on 2000 u daily (10) Essential tremor: Plan: Minor. We will follow. (11) DVT prophylaxis: Plan: Anticoagulated with Coumadin (12) Discharge planning issues: Plan: PT/OT ongoingnote from yesterday reveals significant assistance for hand placement and walker was required. Plan to SNF- family in agreement Discharge 11/16- bed available Urology were consulted to get the consent for a Asencio free trial. They message me that was okay to. Asencio catheter discontinued this evening Plan Bed [id number] at [facility]. D/W DAVION Abarca . Admission and Anticipated Discharge Date Admission Date: November 04, 2022 Subjective AT 1735 H , sitting in chair, well looking, Asencio catheter in place No complaints Physical Exam Physical Exam: the patient was pleasant and conversant, well looking, sitting in chair with the TV on, unable to answer questions correctly, answered Wednesday to what month it was and is a daytime goodbye i AM NOT HERE NEXT FEW DAYS told me to enjoy my Monday (today is Monday) Head and neck moist tongue Chest clear to auscultation Abdomen nontender, Asencio catheter with tea colored urine Insight and judgment limited, affect cheerful Results & Data Results & Data ([facility]) Vital Signs (Past 12 Hours) Vital Signs Temp Pulse Resp BP Pulse Ox O2 Del Method 11/15/22 19:37 36.6 C 64 16 114/65 98 Room Air 11/15/22 15:15 36.4 C L 67 18 134/86 99 Room Air Laboratory Results NONE Medications Administered Home Medications Medication Instructions Recorded Confirmed Last Taken cholecalciferol (vitamin D3) 50 2,000 units PO QAM 07/16/20 11/04/22 11/04/22 mcg (2,000 unit) tablet bisoprolol 5 1 tab PO QAM #90 tabs 12/06/21 11/04/22 11/04/22 mg-hydrochlorothiazide 6.25 mg tablet levothyroxine 100 mcg tablet 100 mcg PO DAILY #90 tabs 09/01/22 11/04/22 11/04/22 mecobalamin (vitamin B12) 1,000 1,000 mcg PO DAILY #90 tabs 09/19/22 11/04/22 11/04/22 mcg chewable tablet lovastatin 40 mg tablet 40 mg PO HS 11/04/22 11/04/22 11/04/22 warfarin 2.5 mg tablet 2.5 mg PO MOTUWETHFR 11/04/22 11/04/22 11/04/22 Active Medications Generic Name Dose Route Start Last Admin Trade Name Hector PRN Reason Stop Dose Admin Acetaminophen 650 mg 11/04/22 18:36 11/07/22 09:04 Acetaminophen 325 Mg Tab PO 12/04/22 18:35 650 mg Q4H PRN Administration pain/fever Cyanocobalamin 500 mcg 11/12/22 09:00 11/15/22 10:05 Cyanocobalamin (B-12) 500 Mcg Tablet PO 12/12/22 08:59 500 mcg QAM DAVID Administration Levothyroxine Sodium 100 mcg 11/05/22 06:30 11/15/22 05:57 Levothyroxine Sodium 100 Mcg Tablet PO 12/05/22 06:29 100 mcg DAILYBB DAVID Administration Lovastatin 40 mg 11/04/22 21:00 11/15/22 19:34 Lovastatin 20 Mg Tab PO 12/04/22 20:59 40 mg HS DAVID Administration Melatonin 6 mg 11/13/22 21:27 11/15/22 19:58 Melatonin 3 Mg Tab PO 12/13/22 21:26 6 mg HS PRN Administration Sleep Metoprolol Tartrate 25 mg 11/05/22 09:00 11/15/22 19:35 Metoprolol Tartrate 25 Mg Tab PO 12/05/22 08:59 25 mg BID DAVID Administration Polyethylene Glycol 17 gm 11/04/22 18:36 11/15/22 17:32 Polyethylene (Miralax) 17 Gm Pack PO 12/04/22 18:35 17 gm DAILY PRN Administration Constipation Quetiapine Fumarate 25 mg 11/09/22 10:30 11/15/22 19:35 Quetiapine Fumarate 25 Mg Tablet PO 12/09/22 10:29 25 mg BID DAVID Administration Tamsulosin HCl 0.4 mg 11/06/22 21:00 11/15/22 19:35 Tamsulosin Hcl 0.4 Mg Cap PO 12/06/22 20:59 0.4 mg HS DAVID Administration Thiamine HCl 100 mg 11/07/22 10:45 11/15/22 10:06 Thiamine Hcl 100 Mg Tab PO 12/07/22 10:44 100 mg QAM DAVID Administration Vitamin D 2,000 units 11/05/22 09:00 11/15/22 10:06 Cholecalciferol 1,000 Units 25 Mcg Tab PO 12/05/22 08:59 2,000 units QAM DAVID Administration Warfarin Sodium 2.5 mg 11/04/22 19:30 11/15/22 10:06 Warfarin Sod 2.5 Mg Tab PO 12/04/22 19:29 2.5 mg DAILY DAVID Administration PG Care Time/CCT Total # of Minutes Spent Total Time Spent with Patient: Total time spent is greater than 50% in coordination of care (as documented) at patient's floor/unit and/or counseling patient: Coding Level of Care Code 86465 Subseq Hosp Care Lvl 1 Diagnoses Altered mental status R41.82 Alcohol abuse F10.10 Vitamin B 12 deficiency E53.8 Urinary retention R33.9 Hypothyroidism E03.9 Hypothyroidism type: acquired Dyslipidemia E78.5 HTN (hypertension) I10 Hypertension type: essential hypertension Atrial fibrillation I48.21 Atrial fibrillation type: permanent Vitamin D deficiency E55.9 Essential tremor G25.0 DVT prophylaxis Z29.9 Discharge planning issues Z02.9 (1) Hypothyroidism Hypothyroidism type: acquired Qualified Code(s): E03.9 - Hypothyroidism, unspecified (2) HTN (hypertension) Hypertension type: essential hypertension Qualified Code(s): I10 - Essential (primary) hypertension (3) Atrial fibrillation Atrial fibrillation type: permanent Qualified Code(s): I48.21 - Permanent atrial fibrillation
[2022-11-16] MEDS: LEVOTHYROXINE SODIUM 100 MCG TABLET PO SCH (06:23)
[2022-11-16] MEDS: QUEtiapine FUMARATE 25 MG TABLET PO SCH (10:30)
[2022-11-16] MEDS: METOPROLOL TARTRATE 25 MG TAB PO SCH (10:30)
[2022-11-16] MEDS: WARFARIN SOD 2.5 MG TAB PO SCH (10:30)
[2022-11-16] MEDS: CYANOCOBALAMIN (B-12) 500 MCG TABLET PO SCH (10:31)
[2022-11-16] MEDS: CHOLECALCIFEROL 1,000 UNITS 25 MCG TAB PO SCH (10:31)
[2022-11-16] MEDS: THIAMINE HCL 100 MG TAB PO SCH (10:31)
--- NOTE | 2022-11-16 11:06 | Discharge Summary ---
Date of Service November 16, 2022 Admission HPI Per Admitting Provider Very pleasant 82-year-old male accompanied by his family. They note that over the last several months he has had some progressive worsening confusionhis ex- (with whom he used to still live) moved into center care about a month ago, and he has had several phone calls to his son asking where his ex- is. He has also had a few falls over the last few months for no clear reason, and some degree of confusion/may be getting lost a little bit, etc. He has been following actively with his PCP. He relates that he believes he takes his medications reliably. Family does note that he is probably lost about 10 pounds over the last 3 months, and they believe he is still eating and drinking reasonably but definitely not well enough consistently. He still drinks dailyhard to discern exactly how much, but sounds like probably somewhere between 2 to 4 12 ounce, 5% beers. He ended up in the ER today because over the last 24 hours the increase in hallucinations was quite significanthe is seeing things fleetinglysometimes that they sort of look like animalshe notes those are there for just a few seconds and seems to be able to convince himself they are not real, and yet at the same time he felt that he saw someone on his couch doing drugs, called the police, etc. He denies any acute physical complaints, no focal symptoms. He does note that he has had very few times that he is quit drinking in the past, he was not able to quantify when it was as far as how many years ago, but at some point he tried to quit drinking for lunch, made it for days, and had some significant shakes during that time period. Principal Diagnosis Dementia with agitation, acute urinary retention Discharge Exam General-alert. Baseline dementia with confusion HEENT-head atraumatic and normocephalic, pupils equal and reactive to light, extraocular muscles intact. Neck-no lymphadenopathy or thyromegaly, trachea midline Chest-clear to auscultation percussion. No rales wheezing or rhonchi Cardiac-regular rate and rhythm, normal S1 and S2 Abdomen-normal bowel sounds, nontender, no hepatosplenomegaly Extremities-no cyanosis, clubbing, or edema Neuro-cranial nerves II through XII intact, motor and sensory function within normal limits, strength symmetrical, no focal deficits Psych-difficult to assess due to dementia Discharge Data Allergies Allergy/AdvReac Type Severity Reaction Status Date / Time alfuzosin AdvReac Mild dizziness Verified 11/04/22 14:23 Consultations 11/04/22 15:52 ED Decision to Admit Stat 11/06/22 08:14 Consult Urology Routine 11/14/22 19:31 Consult Urology Routine Ordered Studies 11/04/22 13:08 CT head/brain wo con Stat Hospital Course (1) Altered mental status: Admitted with worsening dementia with behavior disorder and occasional hallucinations at home. Intermittent agitation heredoing well on Seroquel twice a day now. Risperdal discontinued on November 08 and mental status has improved. Seroquel 25 mg twice a day working well. Underlying dementia. (2) Alcohol abuse: no withdrawal symptoms while hospitalized (3) Vitamin B 12 deficiency: Profoundly low. Potentially a contributor to his mental status changes. Replacing 1000 MCG IM daily for 8 days. Eventual switch to oral dosing. (4) Urinary retention: Urology had to insert Asencio catheter this admission. Subsequently removed on November 15. (5) Hypothyroidism: Continue current thyroid replacement therapy. Very mildly elevated TSH. (6) Dyslipidemia: Heart healthy diet. Continue current medical management (7) HTN (hypertension): Poorly controlled blood pressure on admission. Home bisoprololHCTZ changed to metoprolol and amlodipine. Improved (8) Atrial fibrillation: Continue beta-blockerrate controlled. Anticoagulated on Coumadin. Daily INR. (9) Vitamin D deficiency: Continue replacement therapy (10) Essential tremor: Minor. We will follow. (11) DVT prophylaxis: Anticoagulated with Coumadin (12) Discharge planning issues: PT/OT ongoing Plan to SNF- family in agreement Discharge 11/16- bed available Plan Discharge today, 11/16, to [facility] . Total Time Total Time Spent Total Time Spent (In Minutes): 35 minutes Discharge Plan Discharge Items Patient Disposition: Transfer [facility] Fac Reason For Visit: DELIRIUM Discharge Diagnosis: Dementia with agitation and delirium, acute urinary retention, uncontrolled hypertension Activity: Resume your previous activity Non-emergency contact: Primary Care Provider Call non-emergency contact if: you have any medication questions Follow-up/Referrals: Michael Pederson MD [Primary Care Provider] - Diet: Heart Healthy Addtl Attending Provider Instructions: Take medications as directed. There have been several medication changes Pending Studies at Discharge: No Stand-Alone Forms: My [facility] Skilled Items Patient informed of condition?: Yes DNR: Yes Discharge Level of Care: Skilled Communicable Disease: No Discharge Prognosis: Stable Lines: None Urinary Catheter: No Medications and DC Order Prescriptions: New metoprolol tartrate 25 mg Tablet 25 mg PO BID Qty: 20 0RF quetiapine 25 mg Tablet 25 mg PO BID Qty: 30 0RF polyethylene glycol 3350 [Miralax] 17 gram Powder In Packet 17 g PO DAILY PRN (Reason: constipation) Qty: 10 0RF tamsulosin 0.4 mg Capsule 0.4 mg PO HS Qty: 10 0RF Continued levothyroxine 100 mcg tablet 100 mcg PO DAILY Qty: 90 3RF mecobalamin (vitamin B12) 1,000 mcg tablet,chewable 1,000 mcg PO DAILY Qty: 90 1RF cholecalciferol (vitamin D3) 2,000 unit tablet 2,000 units PO QAM lovastatin 40 mg tablet 40 mg PO HS Rx Instructions: TAKE 1 TABLET BY MOUTH EVERY EVENING warfarin 2.5 mg tablet 2.5 mg PO MOTUWETHFR Protocol: Dose Management Condition: Monday Dose/Route: 2.5 mg Instruction: 1 x 2.5 mg tablet Condition: Monday Dose/Route: 5 mg Instruction: 2 x 2.5 mg tablets Condition: Monday Dose/Route: 2.5 mg Instruction: 1 x 2.5 mg tablet Condition: Monday Dose/Route: 2.5 mg Instruction: 1 x 2.5 mg tablet Condition: Dose/Route: 2.5 mg Instruction: 1 x 2.5 mg tablet Condition: Monday Dose/Route: 5 mg Instruction: 2 x 2.5 mg tablets Condition: Monday Dose/Route: 2.5 mg Instruction: 1 x 2.5 mg tablet Protocol Text: Adjustment Start Date: Monday07/20/22 INR Value: 2.5 INR Date: 07/20/22 Recheck Date: 08/10/22 Rx Instructions: Take 1 tablet daily or an additional one as needed to achieve INR of 2-3 Discontinued bisoprolol-hydrochlorothiazide 5-6.25 mg tablet 1 tab PO QAM Qty: 90 3RF Discharge Orders: Discharge Order (Routine); Ordered 11/16/22 Ordered By: Ramon Sarabia Admission Data Admit Date/Time: 11/04/22 16:40 Attending Provider: Ramon Sarabia Admit Provider: Khoa Mcnamara Primary Care Provider: Michael Pederson Other Providers: Khoa Mcnamara ; Trevor Velásquez ; Darron Real ; Kamlesh Alexis ; Arielle Luis ; Pedro Garibay ; Angela Pederson ; Lucy Epstein ; Eduardo Campbell ; Bradford Chacko ; Yelena Mace ; Jl Dotson ; Luis Manuel Phan ; [facility] ; [facility] Coding Level of Care Code D/C DAY MANAGEMENT >30 MINS Diagnoses Altered mental status R41.82 Alcohol abuse F10.10 Vitamin B 12 deficiency E53.8 Urinary retention R33.9 Hypothyroidism E03.9 Hypothyroidism type: acquired Dyslipidemia E78.5 HTN (hypertension) I10 Hypertension type: essential hypertension Atrial fibrillation I48.21 Atrial fibrillation type: permanent Vitamin D deficiency E55.9 Essential tremor G25.0 DVT prophylaxis Z29.9 Discharge planning issues Z02.9
== END 2022-11-16 12:30 | DRG 641 ==
LOC: ED 11:39 → SUATTDRO 16:40 → 3N 16:40

== ENCOUNTER 2022-11-25 23:38 | Observation (INO) ==
[2022-11-26 00:21] LABS: Hematocrit (blood only) 39.9 % (40.1-51.0); Hemoglobin 13.3 g/dl (14.0-18.0); Mean Corpuscular Hemoglobin 30.3 pg (25.0-34.0); Mean Corpuscular Hgb Conc 33.3 g/dL (32.0-36.0); Mean Corpuscular Volume 90.9 fL (80.0-100.0); Mean Platelet Volume 11.2 fL (9.4-12.4); Platelet Count 222 K/uL (130-400); RDW Coefficient of Variation 12.3 % (11.5-14.5); RDW Standard Deviation 41.1 fL (36.4-46.3); Red Blood Count 4.39 M/uL (4.63-6.08); White Blood Count 9.75 K/ul (4.8-10.8)
[2022-11-26 00:50] LABS: Albumin Globulin Ratio 0.9 (0.9-2); Albumin Level 3.5 gm/dl (3.4-5.0); BUN Creatinine Ratio 8.7 (10-20); Bilirubin,Total 0.5 mg/dl (0.2-1.0); Calcium 8.8 mg/dl (8.5-10.1); Creatinine Clr Calc Pharmacy 4.6 ml/min; Est GFR (African American) 3.9 ml/min; Est GFR (Non-African American) 3.4 ml/min; Globulin 3.7 gm/dl (2.5-4.0); Potassium 5.6 mmol/L (3.5-5.1); Total Protein 7.2 gm/dl (6.0-8.3)
[2022-11-26] MEDS ORDERED: SODIUM CHLORIDE 0.9% 1000ML 500 ML IV ONE (00:54)
[2022-11-26] MEDS ORDERED: FAMOTIDINE 20MG IV PUSH 20 MG/5 ML SYR IV STA (00:56)
[2022-11-26] MEDS ORDERED: PANTOprazole 40 MG in SYRINGE 0 ML IV ONE (00:56)
[2022-11-26 01:00] LABS: INR 4.6 (0.9-1.1); Partial Thromboplastin Ratio 2.2; Prothrombin Time 44.7 Seconds (9.0-12.0)
[2022-11-26 01:11] LABS: Partial Thromboplastin Time 59.2 Seconds (21.0-31.0)
[2022-11-26 01:21] LABS: Magnesium 2.8 mg/dl (1.7-2.4)
[2022-11-26 01:26] LABS: Troponin I High Sensitivity 11.3 pg/ml (0-20)
[2022-11-26] MEDS ORDERED: LIDOCAINE 2% JELLY 5 ML TUBE EXT ONE ×2 (01:59→02:28)
[2022-11-26 02:18] LABS: Appearance Urine Cloudy (Clear); Bacteria Urine Automated Negative (Negative); Bilirubin Urine Negative (Negative); Blood Urine 2+ (Negative); Color Urine Dark Yellow; Epithelial Cell Urine Auto 0-5 /lpf (0-5); Glucose Urine UA Negative (Negative); Ketones Urine Negative (Negative); Leukocyte Esterase Urine Trace (Negative); Nitrite Urine Negative (Negative); Protein Urine Negative (Negative); RBC Urine Automated >30 /hpf (0-4); Specific Gravity Urine 1.016 (1.000-1.030); Urobilinogen Urine Negative (Negative)
--- NOTE | 2022-11-26 02:52 | History & Physical Report ---
Date of Service November 26, 2022 Assessment & Plan (1) HELEN (acute kidney injury): Plan: 82yo male with a history of HTN, HLD, AF (on warfarin), T2DM, HFpEF, BPH with LUTS, dementia, and hypothyroidism presents with a one-day history of rectal bleeding and urinary retention, found on admission to have an HELEN, hyperkalemia, hypermagnesemia, and supratherapeutic INR. HELEN (stage three), bladder outlet obstruction secondary to BPH Patient presents with severely-elevated creatinine (12.3; baseline ~1.0) Imaging shows bilateral hydroureteronephrosis suspected secondary to bladder outlet obstruction from significant prostate enlargement; no obstructing calculus seen Kate placed - over 1L of red-tinged urine drained Repeat value (three hours later) with mild improvement to 11.4 Going forward, strict I&O's NSS @ 80mL/hr (x2 bags ordered) NPO pending possible procedure Will defer decision re: specialist consultation to day team Continue home tamsulosin Trend renal function Rectal bleed, supratherapeutic INR Patient presents with a 1.5-day history of rectal bleed noticed by staff at [facility] INR at [facility] elevated to 6.8 (goal range 2-3); on arrival to [facility], INR was 6.2 Received vitamin K at [facility] before transport to [facility] (quantity unknown); repeat INR (11/26 at 03:15): 3.9 Initial Hgb 13.3; repeat with only a modest decrease (12.1) Received protonix 40mg IV and famotidine 20mg IV in ED Hold warfarin for now Trend CBC and PT/INR Hyperkalemia Potassium on arrival elevated to 5.6; no hyperkalemic EKG changes noted Suspect secondary to urinary retention as noted above Anticipate spontaneous normalization given kate placement Repeat value (three hours later) improved to 5.2 Trend BMP Atrial fibrillation On admission, patient noted to be in rate-controlled atrial fibrillation Holding warfarin as noted above; SCDs in the meantime Hypermagnesemia Magnesium on admission elevated to 2.8 Anticipate spontaneous normalization given kate placement Repeat value (three hours later) improved to 2.6 Trend serum magnesium DM2 HbA1c 5.4% (07/2022), repeat value ordered BSG checks, sliding-scale insulin, hypoglycemic protocol Dementia: home quetiapine HTN, HFpEF: home metoprolol HLD: home lovastatin Hypothyroidism: home levothyroxine FEN: NPO, NSS @ 80mL/hr (x2 bags ordered) Code status: full code DVT ppx: SCDs - holding warfarin for now PT/OT: ordered Dispo: med/surg (2) Rectal bleed: (3) Supratherapeutic INR: (4) Anticoagulated on warfarin: (5) Atrial fibrillation: (6) Chronic diastolic (congestive) heart failure: (7) Diabetes type 2, uncontrolled: (8) Dyslipidemia: (9) Enlarged prostate with lower urinary tract symptoms (LUTS): (10) HTN (hypertension): (11) Hypothyroidism: (12) Urinary retention: History of Present Illness Primary Care Provider: [facility] 82yo male with a history of HTN, HLD, AF (on warfarin), T2DM, HFpEF, BPH with LUTS, dementia, and hypothyroidism presents with a 1.5-day history of rectal bleeding and urinary retention. Patient was at [facility] when staff noticed patient had painless rectal bleeding associated with abdominal discomfort but no other symptoms. Patient is on warfarin for AF, and at [facility] yesterday (11/25), patient's INR was noted to be 6.8 - patient received vitamin K at [facility] before being transported to [facility]. Upon my interview, patient is sleepy and also has slurred speech (which is patient's baseline, per patient's son), and so patient was unable to provide much ROS - however, patient's son notes he has been visiting him frequently recently, and notes patient has had lower abdominal discomfort over the past couple days. Patient's son denies knowledge of any recent fever, chills, headache, vision changes, CP, SOB, nausea, vomiting, numbness, tingling, weakness, or other symptoms. Denies recent travel. Initial vitals were unremarkable - BP well-controlled, no tachycardia, no tachypnea, patient afebrile, spO2 adequate on room air. Initial labs were notable for mild anemia (13.3), hyperkalemia (5.6), severely- elevated creatinine (12.6; baseline ~1.0), hypermagnesemia (2.8), and supratherapeutic INR (6.2); no leukocytosis, platelets wnl, no additional electrolyte abnormalities, LFTs wnl, Tbili not elevated, covid PCR negative, hsTroponin wnl, CK not elevated. UA was cloudy and notable for 2+ blood, trace leuk esterase, and >30 RBCs; no bacteria noted. Type/screen: B positive, antibody negative. In the ED, patient received NSS 500mL bolus (x1), protonix 40mg IV (x1), and famotidine 20mg IV (x1); a kate was also placed. The kate drained a large volume of red-tinged urine. EKG: atrial fibrillation, rate in the 70s, no overt ischemic change Imaging: moderate bilateral hydroureteronephrosis without obstructing calculus; prostate significantly enlarged with distention of the urinary bladder suggestive of bladder outlet obstruction Surrogate decision-maker in case of an emergency: Chance Benitez (cell: [phone]) Allergies Allergy/AdvReac Type Severity Reaction Status Date / Time alfuzosin AdvReac Mild dizziness Verified 11/26/22 01:27 Home Medications Medication Instructions Recorded Confirmed Type cholecalciferol (vitamin D3) 50 2,000 units PO QAM 07/16/20 11/26/22 History mcg (2,000 unit) tablet levothyroxine 100 mcg tablet 100 mcg PO DAILY #90 tabs 09/01/22 11/26/22 Rx lovastatin 40 mg tablet 40 mg PO HS 11/04/22 11/26/22 History metoprolol tartrate 25 mg tablet 25 mg PO BID #20 tabs 11/16/22 11/26/22 Rx quetiapine 25 mg tablet 25 mg PO BID #30 tabs 11/16/22 11/26/22 Rx tamsulosin 0.4 mg capsule 0.4 mg PO HS #10 caps 11/16/22 11/26/22 Rx acetaminophen 325 mg tablet 650 mg PO Q6 PRN Pain 11/26/22 11/26/22 History (Tylenol) acetaminophen 325 mg tablet 650 mg PO Q6 PRN temp> 100 11/26/22 11/26/22 History (Tylenol) cyanocobalamin (vitamin B-12) 1,000 mcg PO DAILY 11/26/22 11/26/22 History 1,000 mcg lozenges Past Med/Surg History Medical History (Updated 11/26/22 @ 06:18 by Jagdish Travis PA-C) Atrial fibrillation on warfarin---follows with Dr. Jackson BPH (benign prostatic hyperplasia) History of radioactive iodine thyroid ablation Hyperlipidemia Hypertension Hypothyroidism On anticoagulant therapy warfarin daily Skin cancer multiple--all removed in office Surgical History H/O surgical amputation of finger right index finger History of appendectomy History of bilateral cataract extraction History of colonoscopy History of colonoscopy with polypectomy History of nasal surgery intranasal ligation for recurrent epistaxis April 2015 History of prostate biopsy benign History of tooth extraction Status post debridement of bone spur Family History Father , age 85 of colon cancer Cardiac disorder Colorectal cancer Hypertension Mother , age 69 of colon cancer Colorectal cancer Grandfather (Paternal) No problems noted. Grandfather (Maternal) Myocardial infarction Other No family history of adverse response to anesthesia Denies family history of Ovarian cancer Prostate cancer Breast cancer Social History Smoking Status: Unknown if ever smoked Second Hand Exposure: No; Hx Alcohol Use: Yes Alcohol type: beer Alcohol Intake Frequency Comment: 2-3 beers per day most every day Hx Substance Use: No Preferred Language: Faroese Communication Ability: Effective Visual Impairment: No Limitations Hearing Ability: Normal Senior Computer Specialist Required: No Beliefs That Will Affect Care: None marital status: Current Living Situation: [facility] current occupational status: 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 Feels Safe at Home: Yes Childhood Exposure to Second-Hand Smoke: No caffeine: Yes Dental Care, Regularly: Yes Physical Activity Frequency: 1-2 Times per Week Seatbelt Use: always Sunscreen Use: No Assistive Devices: Denture - Upper, Denture - Lower and Glasses Physical Exam Physical Exam: Constitutional: asleep in hospital bed, easily arousable, pleas ant, cooperative, no acute distress CV: irregularly irregular rhythm, no murmur appreciated Resp: CTABL, no wheezes/rales/rhonchi appreciated, no increased work of breathing GI: soft, nondistended, nontender, BS normoactive : deferred given supratherapeutic INR Neuro: alert, oriented to person and place only, no focal neurologic deficit appreciated Results & Data Results & Data ([facility]) Vital Signs (Past 12 Hours) Vital Signs Temp Pulse Resp BP Pulse Ox O2 Del Method 11/25/22 23:59 95 Room Air 11/26/22 00:02 36.5 C 73 12 137/82 95 Room Air Supervising Physician Co-Signing Physician Notes Pt seen and examined in concert with Dr. Myers. Agree with the documented findings as noted in the resident documentation in both the history and the Physical exam and discussed with him the overall plan in detail. Patient presents with acute kidney injury secondary to obstructive uropathy from and resultant bilateral obstruction. Patient had Kate catheter placed with improvement in urine output and with progressive diuresis renal function and hyperkalemia hopefully will continue to improve. Monitor input output closely along with monitoring electrolytes closely as well. Resident Activity Tracking Resident Involvement: Resident Care Provided and Retail Sales Representative Coverage Note Care Provided: Adult Hospital Medicine (1) Atrial fibrillation Atrial fibrillation type: permanent Qualified Code(s): I48.21 - Permanent atrial fibrillation (2) Hypothyroidism Hypothyroidism type: acquired Qualified Code(s): E03.9 - Hypothyroidism, unspecified (3) HTN (hypertension) Hypertension type: essential hypertension Qualified Code(s): I10 - Essential (primary) hypertension
[2022-11-26 03:38] LABS: Hematocrit (blood only) 36.2 % (40.1-51.0); Hemoglobin 12.1 g/dl (14.0-18.0); Mean Corpuscular Hemoglobin 30.4 pg (25.0-34.0); Mean Corpuscular Hgb Conc 33.4 g/dL (32.0-36.0); Mean Platelet Volume 10.9 fL (9.4-12.4); Platelet Count 174 K/uL (130-400); RDW Standard Deviation 40.6 fL (36.4-46.3); Red Blood Count 3.98 M/uL (4.63-6.08)
[2022-11-26 03:58] LABS: INR 3.9 (0.9-1.1); Prothrombin Time 38.6 Seconds (9.0-12.0)
[2022-11-26] MEDS ORDERED: DEXTROSE 50% 50 ML SYRINGE IV PRN (04:14)
[2022-11-26] MEDS ORDERED: CARBOHYDRATES FOR HYPOGLYCEMIA PO PRN (04:14)
[2022-11-26] MEDS ORDERED: GLUCOSE 10 TAB/TUBE PO PRN (04:14)
[2022-11-26] MEDS ORDERED: GLUCOSE 40% GEL 15 GM TUBE PO PRN (04:14)
[2022-11-26] MEDS ORDERED: GLUCAGON FOR INJ 1 MG VIAL SQ PRN (04:14)
[2022-11-26 04:24] LABS: BUN Creatinine Ratio 9.5 (10-20); Calcium 7.9 mg/dl (8.5-10.1); Est GFR (African American) 4.3 ml/min; Est GFR (Non-African American) 3.7 ml/min; Magnesium 2.6 mg/dl (1.7-2.4); Phosphorus 5.5 mg/dl (2.5-4.9); Potassium 5.2 mmol/L (3.5-5.1)
--- NOTE | 2022-11-26 05:11 | Emergency Department Note ---
History of Present Illness General Chief complaint: Rectal Bleed Stated complaint: RECTAL BLEED Time Seen by Provider: 11/26/22 00:35 History of Present Illness This is an 82-year-old male presenting to the emergency department via EMS from [facility] for evaluation of rectal bleeding. The patient has a history of A. fib and is on Coumadin. He has been supratherapeutic on his INR the past 2 days, and his Coumadin was held and he was given a dose of vitamin K. According to nursing he had red blood in his stool tonight and they sent him to the ER for evaluation of rectal bleeding. Patient has not had fevers or chills. He does have baseline dementia that does not seem significantly worse than normal. History is somewhat limited from the patient. Vital signs were stable for EMS. Home Medications Medication Instructions Recorded Confirmed Type cholecalciferol (vitamin D3) 50 2,000 units PO QAM 07/16/20 11/26/22 History mcg (2,000 unit) tablet levothyroxine 100 mcg tablet 100 mcg PO DAILY #90 tabs 09/01/22 11/26/22 Rx lovastatin 40 mg tablet 40 mg PO HS 11/04/22 11/26/22 History metoprolol tartrate 25 mg tablet 25 mg PO BID #20 tabs 11/16/22 11/26/22 Rx quetiapine 25 mg tablet 25 mg PO BID #30 tabs 11/16/22 11/26/22 Rx tamsulosin 0.4 mg capsule 0.4 mg PO HS #10 caps 11/16/22 11/26/22 Rx acetaminophen 325 mg tablet 650 mg PO Q6 PRN Pain 11/26/22 11/26/22 History (Tylenol) acetaminophen 325 mg tablet 650 mg PO Q6 PRN temp> 100 11/26/22 11/26/22 History (Tylenol) cyanocobalamin (vitamin B-12) 1,000 mcg PO DAILY 11/26/22 11/26/22 History 1,000 mcg lozenges Allergies Allergy/AdvReac Type Severity Reaction Status Date / Time alfuzosin AdvReac Mild dizziness Verified 11/26/22 01:27 Past Med/Surg History Medical History (Updated 11/26/22 @ 06:18 by Jagdish Travis PA-C) Atrial fibrillation on warfarin---follows with Dr. Renetta BPH (benign prostatic hyperplasia) History of radioactive iodine thyroid ablation Hyperlipidemia Hypertension Hypothyroidism On anticoagulant therapy warfarin daily Skin cancer multiple--all removed in office Surgical History H/O surgical amputation of finger right index finger History of appendectomy History of bilateral cataract extraction History of colonoscopy History of colonoscopy with polypectomy History of nasal surgery intranasal ligation for recurrent epistaxis April 2015 History of prostate biopsy benign History of tooth extraction Status post debridement of bone spur Family History Father , age 85 of colon cancer Cardiac disorder Colorectal cancer Hypertension Mother , age 69 of colon cancer Colorectal cancer Grandfather (Paternal) No problems noted. Grandfather (Maternal) Myocardial infarction Other No family history of adverse response to anesthesia Denies family history of Ovarian cancer Prostate cancer Breast cancer Social History Smoking Status: Unknown if ever smoked Second Hand Exposure: No; Hx Alcohol Use: Yes Alcohol type: beer Alcohol Intake Frequency Comment: 2-3 beers per day most every day Hx Substance Use: No Preferred Language: Vietnamese Communication Ability: Effective Visual Impairment: No Limitations Hearing Ability: Normal Item Processing Clerk Required: No Beliefs That Will Affect Care: None marital status: Current Living Situation: Alone current occupational status: 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 Feels Safe at Home: Yes Childhood Exposure to Second-Hand Smoke: No caffeine: Yes Dental Care, Regularly: Yes Physical Activity Frequency: 1-2 Times per Week Seatbelt Use: always Sunscreen Use: No Assistive Devices: Denture - Upper, Denture - Lower and Glasses Review of Systems A total of 10 systems reviewed and were otherwise negative Physical Exam Vital Signs Vital Signs - 24 hr 11/26/22 00:02 11/25/22 23:59 11/26/22 00:05 Temperature 36.5 C Temperature Source Axillary Pulse Rate 73 73 Pulse Rate from SpO2 Sensor 66 Respiratory Rate 12 14 Respiratory Effort / Characteristics Non-Labored Spontaneous Respiratory Depth Normal Blood Pressure 137/82 Blood Pressure Mean 100 Pulse Oximetry 95 95 96 Oxygen Delivery Method Room Air Room Air Sepsis Recent Fever Within 48 Hours No Sepsis New/Unexplained Change in Mental Status N/A Sepsis Action Taken by Nursing No Action Required 11/26/22 00:10 11/26/22 00:20 11/26/22 00:30 Temperature Temperature Source Pulse Rate 76 70 70 Pulse Rate from SpO2 Sensor 67 68 74 Respiratory Rate 13 16 14 Respiratory Effort / Characteristics Respiratory Depth Blood Pressure Blood Pressure Mean Pulse Oximetry 99 99 92 Oxygen Delivery Method Sepsis Recent Fever Within 48 Hours Sepsis New/Unexplained Change in Mental Status Sepsis Action Taken by Nursing 11/26/22 00:40 11/26/22 00:45 11/26/22 00:45 Temperature Temperature Source Pulse Rate 67 80 Pulse Rate from SpO2 Sensor 78 Respiratory Rate 17 20 Respiratory Effort / Characteristics Respiratory Depth Blood Pressure 121/77 Blood Pressure Mean 91 Pulse Oximetry 93 86 L Oxygen Delivery Method Sepsis Recent Fever Within 48 Hours Sepsis New/Unexplained Change in Mental Status Sepsis Action Taken by Nursing 11/26/22 00:50 11/26/22 01:00 11/26/22 01:00 Temperature Temperature Source Pulse Rate 78 76 Pulse Rate from SpO2 Sensor 72 74 Respiratory Rate 12 16 Respiratory Effort / Characteristics Respiratory Depth Blood Pressure 110/81 Blood Pressure Mean 90 Pulse Oximetry 90 93 Oxygen Delivery Method Sepsis Recent Fever Within 48 Hours Sepsis New/Unexplained Change in Mental Status Sepsis Action Taken by Nursing 11/26/22 01:17 11/26/22 01:20 11/26/22 01:30 Temperature Temperature Source Pulse Rate 78 69 81 Pulse Rate from SpO2 Sensor 87 Respiratory Rate 18 22 13 Respiratory Effort / Characteristics Respiratory Depth Blood Pressure Blood Pressure Mean Pulse Oximetry 93 Oxygen Delivery Method Sepsis Recent Fever Within 48 Hours Sepsis New/Unexplained Change in Mental Status Sepsis Action Taken by Nursing 11/26/22 01:40 11/26/22 01:50 11/26/22 02:00 Temperature Temperature Source Pulse Rate 78 79 75 Pulse Rate from SpO2 Sensor 76 Respiratory Rate 14 14 12 Respiratory Effort / Characteristics Respiratory Depth Blood Pressure Blood Pressure Mean Pulse Oximetry 86 L 91 87 L Oxygen Delivery Method Sepsis Recent Fever Within 48 Hours Sepsis New/Unexplained Change in Mental Status Sepsis Action Taken by Nursing 11/26/22 02:10 11/26/22 02:20 11/26/22 02:30 Temperature Temperature Source Pulse Rate 73 78 87 Pulse Rate from SpO2 Sensor 78 73 Respiratory Rate 15 15 14 Respiratory Effort / Characteristics Respiratory Depth Blood Pressure Blood Pressure Mean Pulse Oximetry 86 L 91 92 Oxygen Delivery Method Sepsis Recent Fever Within 48 Hours Sepsis New/Unexplained Change in Mental Status Sepsis Action Taken by Nursing 11/26/22 02:40 11/26/22 02:50 11/26/22 03:00 Temperature Temperature Source Pulse Rate 76 90 Pulse Rate from SpO2 Sensor 80 84 93 H Respiratory Rate 24 13 17 Respiratory Effort / Characteristics Respiratory Depth Blood Pressure Blood Pressure Mean Pulse Oximetry 92 95 95 Oxygen Delivery Method Sepsis Recent Fever Within 48 Hours Sepsis New/Unexplained Change in Mental Status Sepsis Action Taken by Nursing 11/26/22 03:10 11/26/22 03:20 11/26/22 03:30 Temperature Temperature Source Pulse Rate 100 H 82 77 Pulse Rate from SpO2 Sensor 92 H Respiratory Rate 23 12 16 Respiratory Effort / Characteristics Respiratory Depth Blood Pressure Blood Pressure Mean Pulse Oximetry 88 L 96 85 L Oxygen Delivery Method Sepsis Recent Fever Within 48 Hours Sepsis New/Unexplained Change in Mental Status Sepsis Action Taken by Nursing VITALS: Vitals are noted on the nurse's note and reviewed by myself. Vital signs stable. GENERAL: Elderly white male who appears in no distress HEAD: Normocephalic atraumatic. HEART: Irregularly irregular LUNGS: Clear to auscultation bilaterally without wheezes, rales or rhonchi. No retractions or accessory muscle use. ABDOMEN: Positive normal bowel sounds x 4. Soft, nontender, without masses or organomegaly. MUSCULOSKELETAL: No muscle atrophy, erythema, or edema noted. Full range of motion in all extremities. Course Administered Medications Sodium Chloride (Nss 1000ml) 1,000 mls @ 80 mls/hr IV .[id number] DAVID Stop: 11/27/22 04:44 Last Admin: 11/26/22 06:08 Dose: 80 mls/hr Documented By: DONNA Discontinued Medications Sodium Chloride (Nss 1000ml) 500 mls @ 999 mls/hr IV .Q31M ONE Stop: 11/26/22 01:24 Last Infusion: 11/26/22 05:45 Dose: 999 mls/hr Documented By: Admin: 11/26/22 02:00 Dose: 999 mls/hr Documented By: MEHUL Pantoprazole Sodium 40 mg/ (Syringe) 10 mls @ 5 mls/min IV NOW ONE Stop: 11/26/22 00:57 Last Admin: 11/26/22 02:00 Dose: 5 mls/min Documented By: MEHUL Famotidine (Pepcid 20mg Iv Push) 20 mg in 5 mls @ 2.5 mls/min IV NOW STA Stop: 11/26/22 00:57 Last Admin: 11/26/22 02:00 Dose: 2.5 mls/min Documented By: MEHUL Lidocaine HCl (Lidocaine 2% Jelly 5 Ml Tube) Confirm Administered Dose 5 ml EXT .STK-MED ONE Stop: 11/26/22 02:00 Last Admin: 11/26/22 03:06 Dose: Not Given Documented By: MEHUL Lidocaine HCl (Lidocaine 2% Jelly 5 Ml Tube) 5 ml EXT NOW ONE Stop: 11/26/22 02:29 Last Admin: 11/26/22 02:00 Dose: 5 ml Documented By: MEHUL Medical Decision Making Differential Diagnosis Differential diagnosis: Etiologies such as esophagitis, variceal bleed, Boerhaaves, Uehling-Muse tear, gastritis, peptic ulcer disease, AVM, inflammatory bowel disease, ischemia, diverticulosis, colitis, malignancy, coagulopathy, thrombocytopenia, fissure, hemorrhoid, epistaxis , as well as others were entertained. Laboratory Data Result diagrams: 11/26/22 03:15 11/26/22 03:15 Lab Results 11/25/22 11/25/22 11/25/22 Range/Units 23:53 23:53 23:53 WBC 9.75 (4.8-10.8) K/ul RBC 4.39 L (4.63-6.08) M/uL Hgb 13.3 L (14.0-18.0) g/dl Hct 39.9 L (40.1-51.0) % MCV 90.9 (80.0-100.0) fL MCH 30.3 (25.0-34.0) pg MCHC 33.3 (32.0-36.0) g/dL RDW Std Deviation 41.1 (36.4-46.3) fL RDW Coeff of Dionne 12.3 (11.5-14.5) % Plt Count 222 (130-400) K/uL MPV 11.2 (9.4-12.4) fL PT 44.7 H (9.0-12.0) Seconds INR 4.6 H (0.9-1.1) APTT 59.2 H* (21.0-31.0) Seconds PTT Ratio 2.2 Sodium 137 (136-145) mmol/L Potassium 5.6 H (3.5-5.1) mmol/L Chloride 102 (98-107) mmol/L Carbon Dioxide 21 (21-32) mmol/L Anion Gap 14 H (3-11) BUN 107 H (6-23) mg/dl Creatinine 12.29 H* (0.6-1.4) mg/dl Est Cr Clr Drug Dosing 4.6 ml/min Est GFR ( Amer) 3.9 ml/min Est GFR (Non-Af Amer) 3.4 ml/min BUN/Creatinine Ratio 8.7 L (10-20) Glucose 97 (70-99(Fasting)) mg/dl Calcium 8.8 (8.5-10.1) mg/dl Phosphorus (2.5-4.9) mg/dl Magnesium (1.7-2.4) mg/dl Total Bilirubin 0.5 (0.2-1.0) mg/dl AST 12 L (13-39) U/L ALT 15 (7-52) U/L Alkaline Phosphatase 70 (34-104) U/L Total Creatine Kinase (30-223) U/L Troponin I High Sens (0-20) pg/ml Total Protein 7.2 (6.0-8.3) gm/dl Albumin 3.5 (3.4-5.0) gm/dl Globulin 3.7 (2.5-4.0) gm/dl Albumin/Globulin Ratio 0.9 (0.9-2) Urine Color Urine Appearance (Clear) Urine pH (4.5-7.5) Ur Specific [place] (1.000-1.030) Urine Protein (Negative) Urine Glucose (UA) (Negative) Urine Ketones (Negative) Urine Blood (Negative) Urine Nitrite (Negative) Urine Bilirubin (Negative) Urine Urobilinogen (Negative) Ur Leukocyte Esterase (Negative) Urine WBC (Auto) (0-5) /hpf Urine RBC (Auto) (0-4) /hpf U Hyaline Cast (Auto) (0-5) /lpf U Epithel Cells (Auto) (0-5) /lpf Urine Bacteria (Auto) (Negative) SARS-CoV-2, RNA, NAAT (NEGATIVE) Blood Type Antibody Screen 12/30/22 12/30/22 12/31/22 Range/Units 23:53 23:55 00:00 WBC (4.8-10.8) K/ul RBC (4.63-6.08) M/uL Hgb (14.0-18.0) g/dl Hct (40.1-51.0) % MCV (80.0-100.0) fL MCH (25.0-34.0) pg MCHC (32.0-36.0) g/dL RDW Std Deviation (36.4-46.3) fL RDW Coeff of Dionne (11.5-14.5) % Plt Count (130-400) K/uL MPV (9.4-12.4) fL PT (9.0-12.0) Seconds INR (0.9-1.1) APTT (21.0-31.0) Seconds PTT Ratio Sodium (136-145) mmol/L Potassium (3.5-5.1) mmol/L Chloride (98-107) mmol/L Carbon Dioxide (21-32) mmol/L Anion Gap (3-11) BUN (6-23) mg/dl Creatinine (0.6-1.4) mg/dl Est Cr Clr Drug Dosing ml/min Est GFR ( Amer) ml/min Est GFR (Non-Af Amer) ml/min BUN/Creatinine Ratio (10-20) Glucose (70-99(Fasting)) mg/dl Calcium (8.5-10.1) mg/dl Phosphorus (2.5-4.9) mg/dl Magnesium 2.8 H (1.7-2.4) mg/dl Total Bilirubin (0.2-1.0) mg/dl AST (13-39) U/L ALT (7-52) U/L Alkaline Phosphatase (34-104) U/L Total Creatine Kinase 54 (30-223) U/L Troponin I High Sens 11.3 (0-20) pg/ml Total Protein (6.0-8.3) gm/dl Albumin (3.4-5.0) gm/dl Globulin (2.5-4.0) gm/dl Albumin/Globulin Ratio (0.9-2) Urine Color Urine Appearance (Clear) Urine pH (4.5-7.5) Ur Specific [place] (1.000-1.030) Urine Protein (Negative) Urine Glucose (UA) (Negative) Urine Ketones (Negative) Urine Blood (Negative) Urine Nitrite (Negative) Urine Bilirubin (Negative) Urine Urobilinogen (Negative) Ur Leukocyte Esterase (Negative) Urine WBC (Auto) (0-5) /hpf Urine RBC (Auto) (0-4) /hpf U Hyaline Cast (Auto) (0-5) /lpf U Epithel Cells (Auto) (0-5) /lpf Urine Bacteria (Auto) (Negative) SARS-CoV-2, RNA, NAAT NEGATIVE (NEGATIVE) Blood Type B Positive Antibody Screen NEGATIVE 11/26/22 11/26/22 11/26/22 Range/Units 02:06 03:15 03:15 WBC 8.00 (4.8-10.8) K/ul RBC 3.98 L (4.63-6.08) M/uL Hgb 12.1 L (14.0-18.0) g/dl Hct 36.2 L (40.1-51.0) % MCV 91.0 (80.0-100.0) fL MCH 30.4 (25.0-34.0) pg MCHC 33.4 (32.0-36.0) g/dL RDW Std Deviation 40.6 (36.4-46.3) fL RDW Coeff of Dionne 12.0 (11.5-14.5) % Plt Count 174 (130-400) K/uL MPV 10.9 (9.4-12.4) fL PT 38.6 H (9.0-12.0) Seconds INR 3.9 H (0.9-1.1) APTT (21.0-31.0) Seconds PTT Ratio Sodium (136-145) mmol/L Potassium (3.5-5.1) mmol/L Chloride (98-107) mmol/L Carbon Dioxide (21-32) mmol/L Anion Gap (3-11) BUN (6-23) mg/dl Creatinine (0.6-1.4) mg/dl Est Cr Clr Drug Dosing ml/min Est GFR ( Amer) ml/min Est GFR (Non-Af Amer) ml/min BUN/Creatinine Ratio (10-20) Glucose (70-99(Fasting)) mg/dl Calcium (8.5-10.1) mg/dl Phosphorus (2.5-4.9) mg/dl Magnesium (1.7-2.4) mg/dl Total Bilirubin (0.2-1.0) mg/dl AST (13-39) U/L ALT (7-52) U/L Alkaline Phosphatase (34-104) U/L Total Creatine Kinase (30-223) U/L Troponin I High Sens (0-20) pg/ml Total Protein (6.0-8.3) gm/dl Albumin (3.4-5.0) gm/dl Globulin (2.5-4.0) gm/dl Albumin/Globulin Ratio (0.9-2) Urine Color Dark Yellow Urine Appearance Cloudy A (Clear) Urine pH 5.0 (4.5-7.5) Ur Specific [place] 1.016 (1.000-1.030) Urine Protein Negative (Negative) Urine Glucose (UA) Negative (Negative) Urine Ketones Negative (Negative) Urine Blood 2+ H (Negative) Urine Nitrite Negative (Negative) Urine Bilirubin Negative (Negative) Urine Urobilinogen Negative (Negative) Ur Leukocyte Esterase Trace H (Negative) Urine WBC (Auto) 1-5 (0-5) /hpf Urine RBC (Auto) >30 H (0-4) /hpf U Hyaline Cast (Auto) 1-5 (0-5) /lpf U Epithel Cells (Auto) 0-5 (0-5) /lpf Urine Bacteria (Auto) Negative (Negative) SARS-CoV-2, RNA, NAAT (NEGATIVE) Blood Type Antibody Screen 11/26/22 Range/Units 03:15 WBC (4.8-10.8) K/ul RBC (4.63-6.08) M/uL Hgb (14.0-18.0) g/dl Hct (40.1-51.0) % MCV (80.0-100.0) fL MCH (25.0-34.0) pg MCHC (32.0-36.0) g/dL RDW Std Deviation (36.4-46.3) fL RDW Coeff of Dionne (11.5-14.5) % Plt Count (130-400) K/uL MPV (9.4-12.4) fL PT (9.0-12.0) Seconds INR (0.9-1.1) APTT (21.0-31.0) Seconds PTT Ratio Sodium 139 (136-145) mmol/L Potassium 5.2 H (3.5-5.1) mmol/L Chloride 106 (98-107) mmol/L Carbon Dioxide 22 (21-32) mmol/L Anion Gap 11 (3-11) BUN 108 H (6-23) mg/dl Creatinine 11.38 H* D (0.6-1.4) mg/dl Est Cr Clr Drug Dosing 5.0 ml/min Est GFR ( Amer) 4.3 ml/min Est GFR (Non-Af Amer) 3.7 ml/min BUN/Creatinine Ratio 9.5 L (10-20) Glucose 106 H (70-99(Fasting)) mg/dl Calcium 7.9 L (8.5-10.1) mg/dl Phosphorus 5.5 H (2.5-4.9) mg/dl Magnesium 2.6 H (1.7-2.4) mg/dl Total Bilirubin (0.2-1.0) mg/dl AST (13-39) U/L ALT (7-52) U/L Alkaline Phosphatase (34-104) U/L Total Creatine Kinase (30-223) U/L Troponin I High Sens (0-20) pg/ml Total Protein (6.0-8.3) gm/dl Albumin (3.4-5.0) gm/dl Globulin (2.5-4.0) gm/dl Albumin/Globulin Ratio (0.9-2) Urine Color Urine Appearance (Clear) Urine pH (4.5-7.5) Ur Specific [place] (1.000-1.030) Urine Protein (Negative) Urine Glucose (UA) (Negative) Urine Ketones (Negative) Urine Blood (Negative) Urine Nitrite (Negative) Urine Bilirubin (Negative) Urine Urobilinogen (Negative) Ur Leukocyte Esterase (Negative) Urine WBC (Auto) (0-5) /hpf Urine RBC (Auto) (0-4) /hpf U Hyaline Cast (Auto) (0-5) /lpf U Epithel Cells (Auto) (0-5) /lpf Urine Bacteria (Auto) (Negative) SARS-CoV-2, RNA, NAAT (NEGATIVE) Blood Type Antibody Screen Imaging Data Radiologist's Impression: Preliminary Findings Only See Final Report For Complete Findings CT ABDOMEN & PELVIS Without Contrast: There is moderate bilateral hydroureteronephrosis without obstructing calculus seen. The prostate is significantly enlarged with distention of the urinary bladder, findings suggest bladder outlet obstruction. There is extensive atherosclerotic disease of the aorta and its major branch vessels. Narrative degenerative disease of the thoracolumbar spine. There are trace bilateral effusions. Radiologist:Jas Phan MD ECG Data Additional Comments: Atrial fibrillation @[address] elevation Abnormal ECG When compared with ECG of 04-NOV-2022 11:58, No significant change was found MDM Narrative Physical exam and history were performed. Nursing notes, EMR, and Medication List were personally reviewed. No social concerns were identified as barriers to patients care. He is currently residing at a care home. Patient appears to have report of GI bleed according to the care home with the patient resides. On arrival the patient is pleasantly confused but certainly nontoxic. Vital signs are stable. His outpatient INR was greater than 6 and bedside guaiac was not performed until repeat blood work could be obtained. IV access was performed and labs were sent. Patient was gently hydrated and given IV Protonix and IV Pepcid for possible GI bleed. An order was placed for continuous cardiac monitoring. The monitor shows a rate of 75 with atrial fibrillation rhythm. Patient's blood work is as above and was reviewed. He does not have a significantly elevated white blood cell count. Hemoglobin is over 13. His potassium is slightly elevated at 5.6. INR is 4.6. Transaminases are not diagnostic. The patient's BUN and creatinine are markedly elevated. His BUN is over 100 and creatinine is over 12. He normally is with a baseline creatinine of about 1. Because of this he was sent to CT scan, which was reviewed by myself and radiology. He appears to have significant bilateral hydronephrosis with a very full bladder. His prostate is very large and this suggests a bladder outlet obstruction. Nursing was able to place a coud catheter without difficulty. The patient's son is at bedside and I did keep family updated on patient's status. Case was discussed with the on-call hospitalist as the patient does not appear well for discharge. Please see their dictation for further patient course, plan, disposition. The chart was completed utilizing Dragon Speech Voice Recognition Software. Grammatical errors, random word insertions, pronoun errors, and incomplete sentences are an occasional consequence of this system due to software limitations, ambient noise, and hardware issues. Any formal questions or macario rns about the content, text, or information contained within the body of this dictation should be directly addressed to the provider for clarification. . Impression & Plan HELEN (acute kidney injury), Bladder outlet obstruction, Elevated INR Discharge Plan Visit Data Chief Complaint: Rectal Bleed Stated Complaint: RECTAL BLEED ED Provider: Madonna Anglin ED Midlevel Provider: Jagdish Travis Discharge Problem: HELEN (acute kidney injury), Bladder outlet obstruction, Elevated INR Patient Disposition: Admitted As Inpatient Discharge Instructions Interventions: ED Discharge Assessment Last Done: 11/26/22 05:49
[2022-11-26] MEDS ORDERED: ACETAMINOPHEN 325 MG TAB PO PRN (05:43)
[2022-11-26] MEDS: SODIUM CHLORIDE 0.9% 1000ML 1,000 ML IV SCH ×2 (06:08→18:32)
[2022-11-26 08:24] LABS: Estimated Average Glucose 111 mg/dl; Hemoglobin A1C 5.5 % (4.5-5.6)
--- NOTE | 2022-11-26 08:32 | CT Scan Report ---
CT OF THE ABDOMEN AND PELVIS WITHOUT CONTRAST CLINICAL HISTORY: GI bleed. Acute kidney injury. COMPARISON STUDY: CT of the abdomen and pelvis April 06, 2021. TECHNIQUE: Axial images of the abdomen and pelvis were obtained without IV contrast. Images were revi ewed in the axial, sagittal, and coronal planes. Automated exposure control was utilized for the pedro dy. A dose lowering technique was utilized adhering to the principles of ALARA. FINDINGS: Trace bilateral pleural effusions are noted. There is cardiomegaly. A few small subpleural left lower lobe nodules are unchanged since CT of April 06, 2021. These are likely benign given stabili ty. Lateral segment hepatic cyst is noted. Small gallstones within the gallbladder noted. No evidence for acute cholecystitis. There is borderline splenomegaly. Unenhanced images of the adrenal glands a nd pancreas are unremarkable. There is no biliary or pancreatic ductal dilatation. There is mild body wall edema. Water attenuation right renal lesions were shown to reflect cysts on prior contrast enha nced exam. There is moderate bilateral hydroureteronephrosis. This is due to bladder distention. The prostate is markedly enlarged, measuring 7.3 cm in transverse dimension. There are no urinary calculi . Symmetric bilateral perinephric stranding is present. Colonic diverticulosis is present. There is n o evidence for acute diverticulitis. No abdominal or pelvic lymphadenopathy is present. No suspicious osseous lesions are identified. IMPRESSION: 1. Moderate bilateral hydroureteronephrosis. Markedly enlarged prostate with distended bladder. The f indings suggest bladder outlet obstruction. No urinary calculi. 2. No bowel obstruction. Colonic diverticulosis without evidence for acute diverticulitis. 3. Trace bilateral pleural effusions. ACT 112: Negative or not required by law. Electronically signed by: Donavon Alvarado M.D. 11/26/2022 8:29 AM
[2022-11-26] MEDS: INSULIN ASPART PER UNIT CHARGE SC SCH ×4 (09:12→20:56)
[2022-11-26] MEDS: QUEtiapine FUMARATE 25 MG TABLET PO SCH ×2 (09:15→20:57)
[2022-11-26] MEDS: LEVOTHYROXINE SODIUM 100 MCG TABLET PO SCH (09:15)
[2022-11-26] MEDS: METOPROLOL TARTRATE 25 MG TAB PO SCH ×2 (09:15→20:57)
--- NOTE | 2022-11-26 12:58 | Gastrointestinal Consultation ---
Date of Consultation November 26, 2022 Assessment & Plan (1) Rectal bleed: (2) Supratherapeutic INR: Plan hematochezia in the setting of severely elevated INR: mild drop in hgb, could be hemorrhoidal or diverticular bleeding, less likely an ulcer. recs: --correct INR --protonix 40 mg daily is ok for now --will need outpatient EGD and colonoscopy to further evaluate his hematochezia after his severe HELEN and hyperkalemia are corrected --supportive care, rest as per primary team Thank you for allowing me to participate in the care of this patient History of Present Illness Attending Physician: Wm Cantrell MD History of Present Illness 82 yo male with hx HTN, HLD, AF on coumadin, dementia, CHF here with urinary retention and hematochezia. he notes this is the firs time he has had rectal bleeding, his INR is noted to be above 6 on arrival. Hgb was not significantly affected, 12.1 today, above 13 yesterday. He does have significant kidney injury and hyperkalemia however. CBC and CMP reviewed. Allergies Allergy/AdvReac Type Severity Reaction Status Date / Time alfuzosin AdvReac Mild dizziness Verified 11/26/22 01:27 Home Medications Medication Instructions Recorded Confirmed Type cholecalciferol (vitamin D3) 50 2,000 units PO QAM 07/16/20 11/26/22 History mcg (2,000 unit) tablet levothyroxine 100 mcg tablet 100 mcg PO DAILY #90 tabs 09/01/22 11/26/22 Rx lovastatin 40 mg tablet 40 mg PO HS 11/04/22 11/26/22 History metoprolol tartrate 25 mg tablet 25 mg PO BID #20 tabs 11/16/22 11/26/22 Rx quetiapine 25 mg tablet 25 mg PO BID #30 tabs 11/16/22 11/26/22 Rx tamsulosin 0.4 mg capsule 0.4 mg PO HS #10 caps 11/16/22 11/26/22 Rx acetaminophen 325 mg tablet 650 mg PO Q6 PRN Pain 11/26/22 11/26/22 History (Tylenol) acetaminophen 325 mg tablet 650 mg PO Q6 PRN temp> 100 11/26/22 11/26/22 History (Tylenol) cyanocobalamin (vitamin B-12) 1,000 mcg PO DAILY 11/26/22 11/26/22 History 1,000 mcg lozenges Patient History Medical History Atrial fibrillation on warfarin---follows with Dr. Jackson BPH (benign prostatic hyperplasia) History of radioactive iodine thyroid ablation Hyperlipidemia Hypertension Hypothyroidism On anticoagulant therapy warfarin daily Skin cancer multiple--all removed in office Surgical History H/O surgical amputation of finger right index finger History of appendectomy History of bilateral cataract extraction History of colonoscopy History of colonoscopy with polypectomy History of nasal surgery intranasal ligation for recurrent epistaxis April 2015 History of prostate biopsy benign History of tooth extraction Status post debridement of bone spur 1990s Family History Father , age 85 of colon cancer Cardiac disorder Colorectal cancer Hypertension Mother , age 69 of colon cancer Colorectal cancer Grandfather (Paternal) No problems noted. Grandfather (Maternal) Myocardial infarction Other No family history of adverse response to anesthesia Denies family history of Ovarian cancer Prostate cancer Breast cancer Social History Smoking Status: Unknown if ever smoked Second Hand Exposure: No; Hx Alcohol Use: Yes Alcohol type: beer Alcohol Intake Frequency Comment: 2-3 beers per day most every day Hx Substance Use: No Preferred Language: Sami Communication Ability: Effective Visual Impairment: No Limitations Hearing Ability: Normal Charrer Required: No Beliefs That Will Affect Care: None marital status: Current Living Situation: [facility] current occupational status: 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 Feels Safe at Home: Yes Childhood Exposure to Second-Hand Smoke: No caffeine: Yes Dental Care, Regularly: Yes Physical Activity Frequency: 1-2 Times per Week Seatbelt Use: always Sunscreen Use: No Assistive Devices: Denture - Upper, Denture - Lower and Glasses Review of Systems Review of Systems: Unobtainable due to cognitive status Physical Exam Constitutional: WD/WN, vitals as above Eyes: EOM intact bilaterally Neck: normal visual inspection Respiratory: normal respiratory effort, lungs clear to auscultation Cardiovascular: Rate/Rhythm: + irregularly irregular (consistent with his afib) Heart Sounds: normal S1 and normal S2 Gastrointestinal (Abdomen): Inspection/Auscultation: abdomen normal to inspection; abdomen not distended Percussion/Palpation: abdomen soft; abdomen nontender and no hepatosplenomegaly Musculoskeletal: Extremities: no cyanosis Gait: normal gait Skin: no rashes, warm and dry Neurologic: moves all extremities Psychiatric: A+Ox3, euthymic affect Results & Data ([facility]) Vital Signs (Past 12 Hours) Vital Signs Temp Pulse Pulse Resp BP BP Pulse Ox 11/26/22 09:15 11/26/22 06:11 36.4 C L 103 H 18 138/87 96 11/26/22 05:49 11/26/22 05:00 75 17 94 11/26/22 04:50 84 21 92 11/26/22 04:40 101 H 24 91 11/26/22 04:30 70 13 93 11/26/22 04:20 83 23 95 11/26/22 04:10 74 16 94 11/26/22 04:00 75 12 96 11/26/22 03:50 80 13 96 11/26/22 03:40 82 24 93 11/26/22 03:30 77 16 85 L 11/26/22 03:20 82 12 96 11/26/22 03:10 100 H 23 88 L 11/26/22 03:00 90 17 95 11/26/22 02:50 76 13 95 11/26/22 02:40 24 92 11/26/22 02:30 87 14 92 11/26/22 02:20 78 15 91 11/26/22 02:10 73 15 86 L 11/26/22 02:00 75 12 87 L 11/26/22 01:50 79 14 91 11/26/22 01:40 78 14 86 L 11/26/22 01:30 81 13 93 11/26/22 01:20 69 22 11/26/22 01:17 78 18 11/26/22 01:00 76 16 93 11/26/22 01:00 110/81 11/26/22 05:03 O2 Del Method 11/26/22 09:15 Room Air 11/26/22 06:11 Room Air 11/26/22 05:49 Room Air 11/26/22 05:00 11/26/22 04:50 11/26/22 04:40 11/26/22 04:30 11/26/22 04:20 11/26/22 04:10 11/26/22 04:00 11/26/22 03:50 11/26/22 03:40 11/26/22 03:30 11/26/22 03:20 11/26/22 03:10 11/26/22 03:00 11/26/22 02:50 11/26/22 02:40 11/26/22 02:30 11/26/22 02:20 11/26/22 02:10 11/26/22 02:00 11/26/22 01:50 11/26/22 01:40 11/26/22 01:30 11/26/22 01:20 11/26/22 01:17 11/26/22 01:00 11/26/22 01:00 11/26/22 05:03 Room Air PG Care Time/CCT Total # of Minutes Spent Total Time Spent with Patient: Total time spent is greater than 50% in coordination of care (as documented) at patient's floor/unit and/or counseling patient: Coding Level of Care Code 02436 Initial Inpt Care Lvl 3 Diagnoses Rectal bleed K62.5 Supratherapeutic INR R79.1
[2022-11-26] MEDS ORDERED: INFLUENZA VACCINE HIGH DOSE PF 65+ 0.7 ML SYR IM ONE (14:45)
--- NOTE | 2022-11-26 14:49 | Electrocardiogram Report ---
Test Reason : Blood Pressure : / mmHG Vent. Rate : 074 BPM Atrial Rate : 288 BPM P-R Int : 000 ms QRS Dur : 070 ms QT Int : 394 ms P-R-T Axes : 000 061 004 degrees QTc Int : 437 ms Atrial fibrillation Abnormal ECG When compared with ECG of 04-NOV-2022 11:58, No significant change was found Confirmed by Baljeet Baumann ([id number]) on 11/26/2022 2:49:30 PM Referred By: REFERRED SELF Confirmed By:Baljeet Baumann
--- NOTE | 2022-11-26 18:58 | Hospitalist Progress Note ---
Date of Service November 26, 2022 Assessment & Plan (1) HELEN (acute kidney injury): Plan: 82yo male with a history of HTN, HLD, AF (on warfarin), T2DM, HFpEF, BPH with LUTS, dementia, and hypothyroidism presents with a one-day history of rectal bleeding and urinary retention, found on admission to have an HELEN, hyperkalemia, hypermagnesemia, and supratherapeutic INR. HELEN (stage three), bladder outlet obstruction secondary to BPH Patient presents with severely-elevated creatinine (12.3; baseline ~1.0) Imaging shows bilateral hydroureteronephrosis suspected secondary to bladder outlet obstruction from significant prostate enlargement; no obstructing calculus seen Kate placed - over 1L of red-tinged urine drained Patient has a high urine output, so for patient made about 3500 cc of the urine, patient has developed post obstruction diuresis, start IV fluid saline at 100 mm/h creatinine dropped slightly to 11 FEN: NPO, NSS @ 80mL/hr (x2 bags ordered) Code status: full code DVT ppx: SCDs - holding warfarin for now PT/OT: ordered Dispo: med/surg (2) Hyperkalemia: Plan: Hyperkalemia Potassium on arrival elevated to 5.6; no hyperkalemic EKG changes noted Suspect secondary to urinary retention as noted above Anticipate spontaneous normalization given kate placement Repeat value (three hours later) improved to 5.2 Trend BMP (3) Urinary retention with incomplete bladder emptying: Plan: Indwelling Kate catheter is placed We double the dose of Flomax, add finasteride, outpatient follow-up with urology (4) Hematuria: Plan: Basically secondary to supratherapeutic INR Still INR is on the high side, 3.5 Urine is blood-tinged with no gross hematuria Monitor the urine for now (5) Rectal bleed: Plan: Rectal bleed, supratherapeutic INR Patient presents with a 1.5-day history of rectal bleed noticed by staff at [facility] INR at [facility] elevated to 6.8 (goal range 2-3); on arrival to [facility], INR was 6.2 Received vitamin K at [facility] before transport to [facility] (quantity unknown); repeat INR (11/26 at 03:15): 3.9 Initial Hgb 13.3; repeat with only a modest decrease (12.1) Received protonix 40mg IV and famotidine 20mg IV in ED Hold warfarin for now Trend CBC and PT/INR -Consulted with GI (6) Hypermagnesemia: Plan: Hypermagnesemia Magnesium on admission elevated to 2.8 Anticipate spontaneous normalization given kate placement Repeat value (three hours later) improved to 2.6 Trend serum magnesium (7) HTN (hypertension): Plan: Blood pressure on the low side, monitor for now, continue metoprolol, (8) Supratherapeutic INR: Plan: Trending down today to 3.9 IV substitute warfarin with apixaban with better bleeding profile (9) Atrial fibrillation: Plan: Atrial fibrillation On admission, patient noted to be in rate-controlled atrial fibrillation Holding warfarin as noted above; SCDs in the meantime (10) Chronic diastolic (congestive) heart failure: Plan: Stable, compensated at this point (11) Diabetes type 2, uncontrolled: Plan: DM2 HbA1c 5.4% (07/2022), repeat value ordered BSG checks, sliding-scale insulin, hypoglycemic protocol (12) Dyslipidemia: Plan: Continue statin (13) Hypothyroidism: Plan: Continue Synthroid 100 MCG daily (14) Dementia: Plan: Patient is totally confused, not sure if this is his baseline or not Admission and Anticipated Discharge Date Admission Date: November 26, 2022 Subjective Patient suffers from advanced dementia 100% confused could not provide any meaningful information, however he does not seem in pain/distress Review of Systems Review of Systems: Patient is encephalopathic and cannot provide significant information Results & Data Results & Data ([facility]) Vital Signs (Past 12 Hours) Vital Signs Temp Pulse Resp BP Pulse Ox O2 Del Method 11/26/22 16:13 37.0 C 79 18 105/64 97 Room Air 11/26/22 09:15 Room Air PG Care Time/CCT Total # of Minutes Spent Total Time Spent with Patient: Total time spent is greater than 50% in coordination of care (as documented) at patient's floor/unit and/or counseling patient: Coding Level of Care Code 47822 Subseq Hosp Care Lvl 3 Diagnoses HELEN (acute kidney injury) N17.9 Hyperkalemia E87.5 Urinary retention with incomplete bladder emptying R33.9 Hematuria R31.9 Rectal bleed K62.5 Hypermagnesemia E83.41 HTN (hypertension) I10 Hypertension type: essential hypertension Supratherapeutic INR R79.1 Atrial fibrillation I48.21 Atrial fibrillation type: permanent Chronic diastolic (congestive) heart failure I50.32 Diabetes type 2, uncontrolled Dyslipidemia E78.5 Hypothyroidism E03.9 Hypothyroidism type: acquired Dementia F03.90 (1) Atrial fibrillation Atrial fibrillation type: permanent Qualified Code(s): I48.21 - Permanent atrial fibrillation (2) HTN (hypertension) Hypertension type: essential hypertension Qualified Code(s): I10 - Essential (primary) hypertension (3) Hypothyroidism Hypothyroidism type: acquired Qualified Code(s): E03.9 - Hypothyroidism, unspecified
[2022-11-26] MEDS: SODIUM CHLORIDE 0.9% 500 ML IV SCH (19:33)
[2022-11-26] MEDS: LOVASTATIN 20 MG TAB PO SCH (20:58)
[2022-11-26] MEDS ORDERED: TAMSULOSIN HCL 0.4 MG CAP PO SCH (21:00)
[2022-11-26] MEDS: TAMSULOSIN HCL 0.4 MG CAP PO SCH (21:00)
[2022-11-27] MEDS: SODIUM CHLORIDE 0.9% 500 ML IV SCH (00:11)
[2022-11-27] MEDS: SODIUM CHLORIDE 0.9% 1000ML 1,000 ML IV SCH ×2 (00:12→08:13)
[2022-11-27] MEDS: LEVOTHYROXINE SODIUM 100 MCG TABLET PO SCH (05:23)
[2022-11-27 06:44] LABS: BUN Creatinine Ratio 14.8 (10-20); Calcium 7.8 mg/dl (8.5-10.1); Creatinine Clr Calc Pharmacy 17.2 ml/min; Est GFR (Non-African American) 16.4 ml/min; Potassium 4.8 mmol/L (3.5-5.1)
[2022-11-27 06:46] LABS: Hematocrit (blood only) 36.2 % (40.1-51.0); Hemoglobin 12.2 g/dl (14.0-18.0); Mean Corpuscular Hemoglobin 30.7 pg (25.0-34.0); Mean Corpuscular Hgb Conc 33.7 g/dL (32.0-36.0); Mean Platelet Volume 10.6 fL (9.4-12.4); Platelet Count 181 K/uL (130-400); RDW Standard Deviation 39.9 fL (36.4-46.3); Red Blood Count 3.98 M/uL (4.63-6.08); White Blood Count 6.09 K/ul (4.8-10.8)
[2022-11-27 07:08] LABS: INR 1.7 (0.9-1.1); Prothrombin Time 17.6 Seconds (9.0-12.0)
[2022-11-27] MEDS: FINASTERIDE 5 MG TAB PO SCH (08:11)
[2022-11-27] MEDS: QUEtiapine FUMARATE 25 MG TABLET PO SCH ×2 (08:12→20:23)
[2022-11-27] MEDS: METOPROLOL TARTRATE 25 MG TAB PO SCH ×2 (08:12→20:23)
[2022-11-27] MEDS: INSULIN ASPART PER UNIT CHARGE SC SCH ×4 (08:58→22:17)
--- NOTE | 2022-11-27 17:20 | Hospitalist Progress Note ---
Date of Service November 27, 2022 Assessment & Plan (1) HELEN (acute kidney injury): Plan: 82yo male with a history of HTN, HLD, AF (on warfarin), T2DM, HFpEF, BPH with LUTS, dementia, and hypothyroidism presents with a one-day history of rectal bleeding and urinary retention, found on admission to have an HELEN, hyperkalemia, hypermagnesemia, and supratherapeutic INR. HELEN (stage three), bladder outlet obstruction secondary to BPH Patient presents with severely-elevated creatinine (12.3; baseline ~1.0) Imaging shows bilateral hydroureteronephrosis suspected secondary to bladder outlet obstruction from significant prostate enlargement; no obstructing calculus seen Kate placed - over 1L of red-tinged urine drained Patient has a high urine output, so for patient made about 3500 cc of the urine, patient has developed post obstruction diuresis, start IV fluid saline at 100 mm/h creatinine dropped slightly to 11 11/27 -Significant improvement, creatinine dropped from 12.3 to 3.3 today, -Stopped IV fluid given history of CHF Repeat BMP tomorrow Increase the dose of Flomax from 0.4-0.8, will check for orthostatic vital Outpatient follow-up with urology Patient is ready to be discharged tomorrow if creatinine is trending down -Discussed with the case management assistant -He needs to be discharged with indwelling Kate catheter to follow-up with urology on outpatient basis (2) Hyperkalemia: Plan: Hyperkalemia Potassium on arrival elevated to 5.6; no hyperkalemic EKG changes noted Suspect secondary to urinary retention as noted above Anticipate spontaneous normalization given kate placement Repeat value (three hours later) improved to 5.2 Trend BMP 11/27 Potassium level is normalized with improving kidney function (3) Urinary retention with incomplete bladder emptying: Plan: Indwelling Kate catheter is placed We double the dose of Flomax, add finasteride, outpatient follow-up with urology on outpatient basis (4) Hematuria: Plan: Basically secondary to supratherapeutic INR Still INR is on the high side, 3.5 Urine is blood-tinged with no gross hematuria Monitor the urine for now 11/27 Hematuria has resolved,, INR today is 1.7 (5) Rectal bleed: Plan: Rectal bleed, supratherapeutic INR Patient presents with a 1.5-day history of rectal bleed noticed by staff at [facility] INR at [facility] elevated to 6.8 (goal range 2-3); on arrival to [facility], INR was 6.2 Received vitamin K at [facility] before transport to [facility] (quantity unknown); repeat INR (11/26 at 03:15): 3.9 Initial Hgb 13.3; repeat with only a modest decrease (12.1) Received protonix 40mg IV and famotidine 20mg IV in ED Hold warfarin for now Trend CBC and PT/INR -Consulted with GI 11/27 No rectal bleeding as per my discussion with the nurse, possibly secondary to super therapeutic INR, continue Protonix, consulted with GI recommend outpatient EGD/colonoscopy when patient is medically stable (6) Hypermagnesemia: Plan: Hypermagnesemia Magnesium on admission elevated to 2.8 Anticipate spontaneous normalization given kate placement Repeat value (three hours later) improved to 2.6 Trend serum magnesium (7) HTN (hypertension): Plan: Blood pressure on the low side, monitor for now, continue metoprolol, (8) Supratherapeutic INR: Plan: Trending down today to 3.9 I recommend substitute warfarin with apixaban with better bleeding profile 11/27 Patient has been taking Coumadin because of history of A. fib, today INR dropped to 1.7, I recommend to substitute Coumadin with novel oral anticoagulation meds (9) Atrial fibrillation: Plan: Atrial fibrillation On admission, patient noted to be in rate-controlled atrial fibrillation Holding warfarin as noted above; SCDs in the meantime (10) Chronic diastolic (congestive) heart failure: Plan: Stable, compensated at this point (11) Diabetes type 2, uncontrolled: Plan: DM2 HbA1c 5.4% (07/2022), repeat value ordered BSG checks, sliding-scale insulin, hypoglycemic protocol (12) Dyslipidemia: Plan: Continue statin (13) Hypothyroidism: Plan: Continue Synthroid 100 MCG daily (14) Dementia: Plan: Patient is totally confused, not sure if this is his baseline or not Admission and Anticipated Discharge Date Admission Date: November 26, 2022 Subjective Patient suffers from advanced dementia 100% confused could not provide any meaningful information, however he does not seem in pain/distress, but the patient does significantly better, creatinine dropped to 3.3 today, BUN to 49, INR to 1.7 Physical Exam Physical Exam: Constitutional: asleep in hospital bed, easily arousable, pleasant, cooperative, no acute distress CV: irregularly irregular rhythm, no murmur appreciated Resp: CTABL, no wheezes/rales/rhonchi appreciated, no increased work of breathing GI: soft, nondistended, nontender, BS normoactive : deferred given supratherapeutic INR Neuro: alert, oriented to person and place only, no focal neurologic deficit appreciated Constitutional: WD/WN, vitals as above Eyes: EOM intact bilaterally Neck: normal visual inspection Respiratory: normal respiratory effort, lungs clear to auscultation Cardiovascular: Rate/Rhythm: + irregularly irregular (consistent with his afib) Heart Sounds: normal S1 and normal S2 Gastrointestinal (Abdomen): Inspection/Auscultation: abdomen normal to inspection; abdomen not distended Percussion/Palpation: abdomen soft; abdomen nontender and no hepatosplenomegaly Musculoskeletal: Extremities: no cyanosis Gait: normal gait Skin: no rashes, warm and dry Psychiatric: A+Ox3, euthymic affect Results & Data Results & Data ([facility]) Vital Signs (Past 12 Hours) Vital Signs Temp Pulse Resp BP Pulse Ox O2 Del Method 11/27/22 15:17 36.5 C 82 18 123/84 94 Room Air 11/27/22 07:49 Room Air 11/27/22 07:31 36.5 C 79 18 133/65 96 Room Air PG Care Time/CCT Total # of Minutes Spent Total Time Spent with Patient: Total time spent is greater than 50% in coordination of care (as documented) at patient's floor/unit and/or counseling patient: Coding Level of Care Code 14168 Subseq Hosp Care Lvl 3 Diagnoses HELEN (acute kidney injury) N17.9 Hyperkalemia E87.5 Urinary retention with incomplete bladder emptying R33.9 Hematuria R31.9 Rectal bleed K62.5 Hypermagnesemia E83.41 HTN (hypertension) I10 Hypertension type: essential hypertension Supratherapeutic INR R79.1 Atrial fibrillation I48.21 Atrial fibrillation type: permanent Chronic diastolic (congestive) heart failure I50.32 Diabetes type 2, uncontrolled Dyslipidemia E78.5 Hypothyroidism E03.9 Hypothyroidism type: acquired Dementia F03.90 (1) HTN (hypertension) Hypertension type: essential hypertension Qualified Code(s): I10 - Essential (primary) hypertension (2) Atrial fibrillation Atrial fibrillation type: permanent Qualified Code(s): I48.21 - Permanent atrial fibrillation (3) Hypothyroidism Hypothyroidism type: acquired Qualified Code(s): E03.9 - Hypothyroidism, unspecified
[2022-11-27] MEDS: TAMSULOSIN HCL 0.4 MG CAP PO SCH (20:22)
[2022-11-27] MEDS: LOVASTATIN 20 MG TAB PO SCH (20:22)
[2022-11-28] MEDS: LEVOTHYROXINE SODIUM 100 MCG TABLET PO SCH (05:37)
[2022-11-28] MEDS: METOPROLOL TARTRATE 25 MG TAB PO SCH ×2 (08:34→21:19)
[2022-11-28] MEDS: QUEtiapine FUMARATE 25 MG TABLET PO SCH ×2 (08:34→21:19)
[2022-11-28] MEDS: FINASTERIDE 5 MG TAB PO SCH (08:35)
[2022-11-28] MEDS: INSULIN ASPART PER UNIT CHARGE SC SCH ×3 (09:02→18:07)
[2022-11-28 09:18] LABS: Hemoglobin 12.2 g/dl (14.0-18.0); Mean Corpuscular Hemoglobin 30.4 pg (25.0-34.0); Mean Corpuscular Hgb Conc 33.9 g/dL (32.0-36.0); Mean Corpuscular Volume 89.8 fL (80.0-100.0); Mean Platelet Volume 10.5 fL (9.4-12.4); Platelet Count 180 K/uL (130-400); RDW Coefficient of Variation 11.7 % (11.5-14.5); RDW Standard Deviation 37.7 fL (36.4-46.3); Red Blood Count 4.01 M/uL (4.63-6.08); White Blood Count 5.25 K/ul (4.8-10.8)
[2022-11-28 09:47] LABS: Calcium 7.9 mg/dl (8.5-10.1); Creatinine Clr Calc Pharmacy 34.9 ml/min; Est GFR (African American) 44.8 ml/min; Est GFR (Non-African American) 38.7 ml/min; Magnesium 1.6 mg/dl (1.7-2.4); Potassium 4.2 mmol/L (3.5-5.1)
[2022-11-28] MEDS: MAGNESIUM SULFATE / D5W 1 GM/100 ML BAG IV SCH ×2 (10:58→12:52)
--- NOTE | 2022-11-28 18:21 | Hospitalist Progress Note ---
Date of Service November 28, 2022 Assessment & Plan (1) HELEN (acute kidney injury): Plan: Attending: Dr. Mcnamara Impression: 82yo male 11/26/2022 with a history of HTN, HLD, AF (on warfarin), T2DM, HFpEF, BPH with LUTS, dementia, and hypothyroidism presents with a one-day history of rectal bleeding and urinary retention, found on admission to have an HELEN, hyperkalemia, hypermagnesemia, and supratherapeutic INR. HELEN (stage three), bladder outlet obstruction secondary to BPH Patient presents with severely-elevated creatinine (12.3; baseline ~1.0). 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[facility] and can 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 This should remain and be followed by urology as an outpatient We double the dose of Flomax, add finasteride (4) Hematuria: Plan: Basically secondary to supratherapeutic INR (6.2) INR is now 1.7 Urine is blood-tinged with no gross hematuria Monitor the urine for now Hematuria has resolved. Continue kate catheter as above (5) Rectal bleed: Plan: Rectal bleed, supratherapeutic INR Patient presents with a 1.5-day history of rectal bleed noticed by staff at [facility] INR at [facility] elevated to 6.8 (goal range 2-3); on arrival to [facility], INR was 6.2 Received vitamin K at [facility] before transport to [facility] (quantity unknown); repeat INR (11/26 at 03:15): 3.9 Initial Hgb 13.3; repeat with only a modest decrease (12.1) Received protonix 40mg IV and famotidine 20mg IV in ED Hold warfarin for now - INR is now 1.7 Trend CBC and PT/INR -Consulted with GI No rectal bleeding as per my discussion with the nurse, possibly secondary to s uper therapeutic INR, continue Protonix, consulted with GI recommend outpatient EGD/colonoscopy when patient is medically stable (6) Hypermagnesemia: Plan: Hypermagnesemia Magnesium on admission elevated to 2.8 Anticipate spontaneous normalization given kate placement Repeat value (three hours later) improved to 2.6 Trend serum magnesium Magnesium now 1.6 Give 2gms magnesium sulfate and check repeat Magnesium level in the morning (7) HTN (hypertension): Plan: Blood pressure on the low side, monitor for now, continue metoprolol, (8) Supratherapeutic INR: Plan: Patient has been taking Coumadin because of history of A. fib, today INR dropped to 1.7 Trending down today to 1.7 Consider substituting warfarin with apixaban with better bleeding profile (9) Atrial fibrillation: Plan: Atrial fibrillation On admission, patient noted to be in rate-controlled atrial fibrillation Holding warfarin as noted above; SCDs in the meantime (10) Chronic diastolic (congestive) heart failure: Plan: Stable, compensated at this point (11) Diabetes type 2, uncontrolled: Plan: DM2 HbA1c 5.4% (07/2022), repeat value ordered BSG checks, sliding-scale insulin, hypoglycemic protocol (12) Dyslipidemia: Plan: Continue statin (13) Hypothyroidism: Plan: Continue Synthroid 100 MCG daily (14) Dementia: Plan: Severe dementia Continue at [facility] Plan Return to [facility] when stable Admission and Anticipated Discharge Date Admission Date: November 26, 2022 Supervising Physician Co-Signing Physician Notes I personally examined the patient and verified all aguero points of history and exam, discussed case, and agree with decision making with E Matilda PAC no meaningful HPI or ROS obtainable, stable for return to snf vitals noted nad heent nc at mmm breathing unlabored hematuria/coaguloapthy - safe for return to snf, as above Subjective Attending: Dr. Mcnamara Patient seen and examined today. Patient with severe dementia. Unable to give history. Denies any acute complaints. Does not appear distressed Review of Systems Review of Systems: Patient is extremely demented. He denies any pain. No shortness of breath. He offers no acute complaints. Unable to fully obtain review of systems due to patient's dementia Physical Exam Physical Exam: GENERAL : No acute distress. Extremely demented. EYES: No icterus, gaze conjugate NOSE: No evidence of epistaxis MOUTH: No lesions or candidiasis NECK: Supple LUNGS: CTA B/L, no wheezes, rales or rhonchi HEART: Regular, rate controlled ABDOMEN: Soft, NT, ND, BS Present EXTREMITIES: No LE edema, pedal pulses intact NEURO: A&OX3 Results & Data Results & Data ([facility]) Vital Signs (Past 12 Hours) Vital Signs Temp Pulse Resp BP Pulse Ox O2 Del Method 11/28/22 15:27 36.6 C 83 18 116/69 97 Room Air 11/28/22 08:36 Room Air 11/28/22 08:30 73 129/71 11/28/22 06:53 36.2 C L 79 18 146/96 H 96 Room Air Critical Care Results & Data Vital Signs (Past 12 Hours) Vital Signs Temp Pulse Resp BP Pulse Ox O2 Del Method 11/28/22 15:27 36.6 C 83 18 116/69 97 Room Air 11/28/22 08:36 Room Air 11/28/22 08:30 73 129/71 11/28/22 06:53 36.2 C L 79 18 146/96 H 96 Room Air Lab & Micro Results (Past 24 Hours) RBC 4.45 M/uL (4.63-6.08) L 11/29/22 WBC 6.69 K/ul (4.8-10.8) 11/29/22 Hgb 13.4 g/dl (14.0-18.0) L 11/29/22 Hct 39.7 % (40.1-51.0) L 11/29/22 MCV 89.2 fL (80.0-100.0) 11/29/22 MCH 30.1 pg (25.0-34.0) 11/29/22 MCHC 33.8 g/dL (32.0-36.0) 11/29/22 RDW Standard Deviation 37.5 fL (36.4-46.3) 11/29/22 RDW Coefficient of Variation 11.7 % (11.5-14.5) 11/29/22 Plt Count 180 K/uL (130-400) 11/29/22 MPV 10.4 fL (9.4-12.4) 11/29/22 Na 137 mmol/L (136-145) 11/29/22 K 4.3 mmol/L (3.5-5.1) 11/29/22 Cl 105 mmol/L (98-107) 11/29/22 CO2 28 mmol/L (21-32) 11/29/22 Anion Gap 4 (3-11) 11/29/22 BUN 21 mg/dl (6-23) 11/29/22 Creatinine 1.28 mg/dl (0.6-1.4) 11/29/22 Estimated GFR ( Amer) 60.0 ml/min 11/29/22 Estimated GFR (Non-Af Amer) 51.8 ml/min 11/29/22 BUN/Creatinine Ratio 16.4 (10-20) 11/29/22 Glu 90 mg/dl (70-99(Fasting)) 11/29/22 Ca 8.2 mg/dl (8.5-10.1) L 11/29/22 Mg 1.9 mg/dl (1.7-2.4) 11/29/22 08:59 Calcium Level 8.2 mg/dl (8.5-10.1) L 11/29/22 08:59 I & O Totals 24 Hours 11/27/22 11/28/22 11/29/22 06:59 06:59 06:59 Intake Total 2227.000 / 2227.000 1986.667 / 1985.667 470 / 470 Output Total 4975 / 4975 2350 / 2350 900 / 900 Balance -2748.000 / -2748.000 -363.333 / -363.333 -430 / -430 Cumulative 11/25/22 23:30 thru 11/28/22 14:49 Intake Total 5183.667 Output Total 9775 Balance -4591.333 RT Ventilator Mngmt (Last Documented) Ventilator Ordered Settings Respiratory Rate 18 11/28/22 15:27 Ventilator - PT Measurements Respiratory Rate 18 PG Care Time/CCT Total # of Minutes Spent Total Time Spent with Patient: Total time spent is greater than 50% in coordination of care (as documented) at patient's floor/unit and/or counseling patient: Coding Level of Care Code 92339 SUB INP/OBS CARE 2/35MIN Diagnoses HELEN (acute kidney injury) N17.9 Hyperkalemia E87.5 Urinary retention with incomplete bladder emptying R33.9 Hematuria R31.9 Rectal bleed K62.5 Hypermagnesemia E83.41 HTN (hypertension) I10 Hypertension type: essential hypertension Supratherapeutic INR R79.1 Atrial fibrillation I48.21 Atrial fibrillation type: permanent Chronic diastolic (congestive) heart failure I50.32 Diabetes type 2, uncontrolled Dyslipidemia E78.5 Hypothyroidism E03.9 Hypothyroidism type: acquired Dementia F03.90 (1) Atrial fibrillation Atrial fibrillation type: permanent Qualified Code(s): I48.21 - Permanent atrial fibrillation (2) Hypothyroidism Hypothyroidism type: acquired Qualified Code(s): E03.9 - Hypothyroidism, unspecified (3) HTN (hypertension) Hypertension type: essential hypertension Qualified Code(s): I10 - Essential (primary) hypertension
[2022-11-28] MEDS: LOVASTATIN 20 MG TAB PO SCH (21:19)
[2022-11-28] MEDS: TAMSULOSIN HCL 0.4 MG CAP PO SCH (21:19)
[2022-11-29] MEDS: LEVOTHYROXINE SODIUM 100 MCG TABLET PO SCH (06:34)
[2022-11-29] MEDS: QUEtiapine FUMARATE 25 MG TABLET PO SCH (09:30)
[2022-11-29] MEDS: FINASTERIDE 5 MG TAB PO SCH (09:31)
[2022-11-29] MEDS: METOPROLOL TARTRATE 25 MG TAB PO SCH (09:31)
[2022-11-29 10:00] LABS: Hematocrit (blood only) 39.7 % (40.1-51.0); Hemoglobin 13.4 g/dl (14.0-18.0); Mean Corpuscular Hemoglobin 30.1 pg (25.0-34.0); Mean Corpuscular Hgb Conc 33.8 g/dL (32.0-36.0); Mean Corpuscular Volume 89.2 fL (80.0-100.0); Mean Platelet Volume 10.4 fL (9.4-12.4); Platelet Count 180 K/uL (130-400); RDW Coefficient of Variation 11.7 % (11.5-14.5); RDW Standard Deviation 37.5 fL (36.4-46.3); Red Blood Count 4.45 M/uL (4.63-6.08); White Blood Count 6.69 K/ul (4.8-10.8)
[2022-11-29 11:00] LABS: BUN Creatinine Ratio 16.4 (10-20); Calcium 8.2 mg/dl (8.5-10.1); Creatinine Clr Calc Pharmacy 44.5 ml/min; Est GFR (Non-African American) 51.8 ml/min; Magnesium 1.9 mg/dl (1.7-2.4); Potassium 4.3 mmol/L (3.5-5.1)
--- NOTE | 2022-11-29 14:42 | Discharge Summary ---
Date of Service November 29, 2022 Admission HPI Per Admitting Provider 82yo male with a history of HTN, HLD, AF (on warfarin), T2DM, HFpEF, BPH with LUTS, dementia, and hypothyroidism presents with a 1.5-day history of rectal bleeding and urinary retention. Patient was at [facility] when staff noticed patient had painless rectal bleeding associated with abdominal discomfort but no other symptoms. Patient is on warfarin for AF, and at [facility] yesterday (11/25), patient's INR was noted to be 6.8 - patient received vitamin K at [facility] before being transported to [facility]. Upon my interview, patient is sleepy and also has slurred speech (which is patient's baseline, per patient's son), and so patient was unable to provide much ROS - however, patient's son notes he has been visiting him frequently recently, and notes patient has had lower abdominal discomfort over the past couple days. Patient's son denies knowledge of any recent fever, chills, headache, vision changes, CP, SOB, nausea, vomiting, numbness, tingling, weakness, or other symptoms. Denies recent travel. Initial vitals were unremarkable - BP well-controlled, no tachycardia, no tachypnea, patient afebrile, spO2 adequate on room air. Initial labs were notable for mild anemia (13.3), hyperkalemia (5.6), severely- elevated creatinine (12.6; baseline ~1.0), hypermagnesemia (2.8), and supratherapeutic INR (6.2); no leukocytosis, platelets wnl, no additional electrolyte abnormalities, LFTs wnl, Tbili not elevated, covid PCR negative, hsTroponin wnl, CK not elevated. UA was cloudy and notable for 2+ blood, trace leuk esterase, and >30 RBCs; no bacteria noted. Type/screen: B positive, antibody negative. In the ED, patient received NSS 500mL bolus (x1), protonix 40mg IV (x1), and famotidine 20mg IV (x1); a kate was also placed. The kate drained a large volume of red-tinged urine. EKG: atrial fibrillation, rate in the 70s, no overt ischemic change Imaging: moderate bilateral hydroureteronephrosis without obstructing calculus; prostate significantly enlarged with distention of the urinary bladder suggestive of bladder outlet obstruction Surrogate decision-maker in case of an emergency: Chance Benitez (cell: [phone]) Admission Exam Per Admitting Provider Physical Exam: Constitutional: asleep in hospital bed, easily arousable, pleasant, cooperative, no acute distress CV: irregularly irregular rhythm, no murmur appreciated Resp: CTABL, no wheezes/rales/rhonchi appreciated, no increased work of breathing GI: soft, nondistended, nontender, BS normoactive : deferred given supratherapeutic INR Neuro: alert, oriented to person and place only, no focal neurologic deficit appreciated Principal Diagnosis Rectal bleed with supratherapeutic INR Discharge Exam GENERAL : No acute distress. Extremely demented. EYES: No icterus, gaze conjugate NOSE: No evidence of epistaxis MOUTH: No lesions or candidiasis NECK: Supple LUNGS: CTA B/L, no wheezes, rales or rhonchi HEART: Regular, rate controlled ABDOMEN: Soft, NT, ND, BS Present EXTREMITIES: No LE edema, pedal pulses intact NEURO: A&OX3 Discharge Data Allergies Allergy/AdvReac Type Severity Reaction Status Date / Time alfuzosin AdvReac Mild dizziness Verified 11/26/22 01:27 Consultations 11/26/22 02:09 ED Decision to Admit Stat 11/26/22 08:27 Consult Gastroenterology Routine Ordered Studies 11/26/22 00:52 CT abd pelvis wo con Urgent CT OF THE ABDOMEN AND PELVIS WITHOUT CONTRAST CLINICAL HISTORY: GI bleed. Acute kidney injury. COMPARISON STUDY: CT of the abdomen and pelvis April 06, 2021. TECHNIQUE: Axial images of the abdomen and pelvis were obtained without IV contrast. Images were reviewed in the axial, sagittal, and coronal planes. Automated exposure control was utilized for the study. A dose lowering technique was utilized adhering to the principles of ALARA. FINDINGS: Trace bilateral pleural effusions are noted. There is cardiomegaly. A few small subpleural left lower lobe nodules are unchanged since CT of April 06, 2021. These are likely benign given stability. Lateral segment hepatic cyst is noted. Small gallstones within the gallbladder noted. No evidence for acute cholecystitis. There is borderline splenomegaly. Unenhanced images of the adrenal glands and pancreas are unremarkable. There is no biliary or pancreatic ductal dilatation. There is mild body wall edema. Water attenuation right renal lesions were shown to reflect cysts on prior contrast enhanced exam. There is mo derate bilateral hydroureteronephrosis. This is due to bladder distention. The prostate is markedly enlarged, measuring 7.3 cm in transverse dimension. There are no urinary calculi. Symmetric bilateral perinephric stranding is present. Colonic diverticulosis is present. There is no evidence for acute diverticulitis. No abdominal or pelvic lymphadenopathy is present. No suspicious osseous lesions are identified. IMPRESSION: 1. Moderate bilateral hydroureteronephrosis. Markedly enlarged prostate with distended bladder. The findings suggest bladder outlet obstruction. No urinary calculi. 2. No bowel obstruction. Colonic diverticulosis without evidence for acute diverticulitis. 3. Trace bilateral pleural effusions. ACT 112: Negative or not required by law. Electronically signed by: Donavon Alvarado M.D. 11/26/2022 8:29 AM Hospital Course (1) HELEN (acute kidney injury): Attending: Dr. Mcnamara Impression: 82yo male 11/26/2022 with a history of HTN, HLD, AF (on warfarin), T2DM, HFpEF, BPH with LUTS, dementia, and hypothyroidism presents with a one-day history of rectal bleeding and urinary retention, found on admission to have an HELEN, hyperkalemia, hypermagnesemia, and supratherapeutic INR. HELEN (stage three), bladder outlet obstruction secondary to BPH Patient presents with severely-elevated creatinine (12.3; baseline ~1.0). 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 This should remain and be followed by urology as an outpatient We double the dose of Flomax, add finasteride (4) Hematuria: Basically secondary to supratherapeutic INR (6.2) INR is now 1.7 Urine is blood-tinged with no gross hematuria Monitor the urine for now Hematuria has resolved. Continue kate catheter as above (5) Rectal bleed: Rectal bleed, supratherapeutic INR Patient presents with a 1.5-day history of rectal bleed noticed by staff at [facility] INR at [facility] elevated to 6.8 (goal range 2-3); on arrival to [facility], INR was 6.2 Received vitamin K at [facility] before transport to [facility] (quantity unknown); repeat INR (11/26 at 03:15): 3.9 Initial Hgb 13.3; repeat with only a modest decrease (12.1) Received protonix 40mg IV and famotidine 20mg IV in ED Hold warfarin for now - INR is now 1.7 Trend CBC and PT/INR -Consulted with GI No rectal bleeding as per my discussion with the nurse, possibly secondary to super therapeutic INR, continue Protonix, consulted with GI recommend outpatient EGD/colonoscopy when patient is medically stable (6) Hypermagnesemia: Hypermagnesemia Magnesium on admission elevated to 2.8 Anticipate spontaneous normalization given kate placement Repeat value (three hours later) improved to 2.6 Trend serum magnesium Magnesium now 1.6 Give 2gms magnesium sulfate and check repeat Magnesium level in the morning (7) HTN (hypertension): Blood pressure on the low side, monitor for now, continue metoprolol, (8) Supratherapeutic INR: Patient has been taking Coumadin because of history of A. fib, today INR dropped to 1.7 Trending down today to 1.7 Consider substituting warfarin with apixaban with better bleeding profile (9) Atrial fibrillation: Atrial fibrillation On admission, patient noted to be in rate-controlled atrial fibrillation Holding warfarin as noted above; SCDs in the meantime (10) Chronic diastolic (congestive) heart failure: No evidence of diastolic or systolic heart failure on echocardiogram Patient does not appear to be fluid overloaded Patient is not on chronic diuretics No prior history of elevation of proBNP Preserved left ventricular ejection fraction of 55 to 60% We will remove congestive heart failure from the problem list (11) Diabetes type 2, uncontrolled: DM2 No prior history of diabetes mellitus identified in review of past medical records and primary care visit notes. HbA1c 5.4% (07/2022), repeat value ordered No significant hyperglycemia this admission We will remove diabetes mellitus type 2 from problem list (12) Dyslipidemia: Continue statin (13) Hypothyroidism: Continue Synthroid 100 MCG daily (14) Dementia: Severe dementia Continue at [facility] Plan Patient to be discharged back to [facility] Total Time Total Time Spent Total Time Spent (In Minutes): 45 minutes Discharge Plan Discharge Items Patient Disposition: Transfer Group Home Fac Reason For Visit: RECTAL BLEED,HELEN,HYPERKALEMIA,HYPERMAGNESEMIA Discharge Diagnosis: RECTAL BLEED,HELEN,HYPERKALEMIA,HYPERMAGNESEMIA Activity: Resume your previous activity Lifting: Gradually increase as tolerated Bathing: No limitations Exercise/Sports: Gradually increase as tolerated Weightbearing: Full weightbearing Non-emergency contact: Primary Care Provider Call non-emergency contact if: you have any medication questions and your symptoms worsen Follow-up/Referrals: Darron Real MD [Physician] - 12/15/22 2:20 pm (Please arrive 15 minutes prior to appointment time. ) [facility] [Primary Care Provider] - Diet: Carb Consistent or DM2 and Heart Healthy Addtl Attending Provider Instructions: You were admitted for rectal bleeding and found to have a very high INR from your coumadin. The coumadin was held and it was reversed with Vitamin K. Your blood levels (Hemoglobin) was stable on discharge and your INR was reversed and was 1.7 at discharge. Since the level was so high, the coumadin will be discontinued and you will be started on Eliquis 2.5mg twice daily. You also had acute kidney failure due to urinary obstruction. A kate catheter was placed and your labs improved. The kate catheter should be continued and you should see urology as an outpatient You should keep all of your outpatient appointments Pending Studies at Discharge: No Stand-Alone Forms: My [facility] Skilled Items Patient informed of condition?: Yes DNR: No Discharge Level of Care: Skilled Communicable Disease: No Discharge Prognosis: Improving Lines: None Urinary Catheter: Yes Medications and DC Order Prescriptions: New tamsulosin 0.4 mg Capsule 0.8 mg PO HS Qty: 30 0RF finasteride [Proscar] 5 mg Tablet 5 mg PO QAM Qty: 30 0RF Eliquis 2.5 mg tablet 2.5 mg PO BID Qty: 60 0RF Continued levothyroxine 100 mcg tablet 100 mcg PO DAILY Qty: 90 3RF cholecalciferol (vitamin D3) 2,000 unit tablet 2,000 units PO QAM lovastatin 40 mg tablet 40 mg PO HS Rx Instructions: TAKE 1 TABLET BY MOUTH EVERY EVENING metoprolol tartrate 25 mg Tablet 25 mg PO BID Qty: 20 0RF quetiapine 25 mg Tablet 25 mg PO BID Qty: 30 0RF cyanocobalamin (vitamin B-12) 1,000 mcg Lozenge 1,000 mcg PO DAILY acetaminophen [Tylenol] 325 mg Tablet 650 mg PO Q6 MDD 3g PRN (Reason: Pain) acetaminophen [Tylenol] 325 mg Tablet 650 mg PO Q6 MDD 3g PRN (Reason: temp> 100) Discontinued tamsulosin 0.4 mg Capsule 0.4 mg PO HS Qty: 10 0RF Discharge Orders: Discharge Order (Routine); Ordered 11/29/22 Ordered By: Dat Grey Admission Data Admit Date/Time: 11/26/22 03:40 Attending Provider: Sachin White Admit Provider: Khoa Mcnamara Primary Care Provider: [facility] Other Providers: [facility] ; Arun Mata Other Interventions: Discharge Summary Assessment (RN) Last Done: 11/29/22 13:31 Supervising Physician Co-Signing Physician Notes I personally examined the patient and verified all aguero points of history and exam, discussed case, and agree with decision making with Monserrat Grey PAC no meaningful HPI or ROS obtainable, stable for return to snf vitals noted nad heent nc at mmm breathing unlabored hematuria/coaguloapthy - safe for return to snf, as above Coding Level of Care Code HOSP INP/OBS DISCH >30 MIN Diagnoses HELEN (acute kidney injury) N17.9 Hyperkalemia E87.5 Urinary retention with incomplete bladder emptying R33.9 Hematuria R31.9 Rectal bleed K62.5 Hypermagnesemia E83.41 HTN (hypertension) I10 Hypertension type: essential hypertension Supratherapeutic INR R79.1 Atrial fibrillation I48.21 Atrial fibrillation type: permanent Chronic diastolic (congestive) heart failure I50.32 Diabetes type 2, uncontrolled Dyslipidemia E78.5 Hypothyroidism E03.9 Hypothyroidism type: acquired Dementia F03.90
== END 2022-11-29 15:32 | DRG 813 ==
LOC: ED 23:38 → INTOOBSV 11-26 03:40 → 3N 11-26 03:40 → SUATTDRO 11-26 03:40 → 3N 11-26 05:49